=== PATIENT | male | born 1965 | race Caucasian/White ===

== ENCOUNTER 2018-07-20 10:59 | Day surgery (SDC) | payer OTHER, SELFPAY ==
[2018-07-20] VITALS (8 sets, daily range): BP systolic 103–135; BP diastolic 60–82; PULSE 45–63; RESP 12–16; TEMP 36.1–36.7; O2SAT 94–98; BMI 35.2
[2018-07-20] MEDS: SODIUM CHLORIDE 0.9% 1,000 ML 200 ML IV (11:25)
--- NOTE | 2018-07-20 11:46 | PM.HP.1 ---
History of Present Illness Date Patient Seen: 07/20/18 Time Patient Seen: 11:47 Chief complaint: [id number] Narrative: 53-year-old white male comes in for screening colonoscopy. He is asymptomatic denies melena hematochezia or abdominal pain. He has had a previous colonoscopy with no polyps found. Patient History Medical History Obstructive sleep apnea of adult (Chronic) Snoring (Resolved) Morbid obesity with BMI of 40.0-44.9, adult (Chronic) Asthma (Acute) Depression (Acute) Allergic rhinitis (Chronic) GERD (gastroesophageal reflux disease) (Chronic) Hyperlipidemia (Chronic) Hypogonadism in male (Chronic) Comment: Patient has no prior surgical history does have hyperlipidemia and is morbidly obese he takes aspirin and simvastatin. Family & Social History Social History: household members spouse lives independently Yes caregiver/support person No Tobacco & Substance use: Smoking Status Never smoker alcohol intake current Meds Home Medications Medication Instructions Recorded Confirmed Type fluticasone [Flonase Allergy 1 spray INTRANASAL QDAY #0 06/05/16 07/20/18 History Relief] omeprazole 20 mg PO QDAY #0 06/05/16 07/20/18 History simvastatin 20 mg PO HS #0 06/05/16 07/20/18 History testosterone [AndroGel] 2.5 gm TD #0 06/05/16 History [CO-Q-10] #0 09/03/16 History multivitamin [Multiple Vitamins] 1 tab PO QDAY #0 02/18/17 History aspirin [Aspir-81] 81 mg PO DAILY 07/20/18 07/20/18 History ranitidine HCl [Zantac 75] 75 mg PO DAILY 07/20/18 07/20/18 History Allergies Allergy/AdvReac Type Severity Reaction Status Date / Time Penicillins [PENICILLINS] Allergy Unknown Unverified 09/03/17 11:51 Review of Systems Review of Systems All systems reviewed & are unremarkable except as noted in HPI and below Exam Vital Signs (past 8 hours): - 07/20/18 11:19 Temperature 97.6 F Pulse Rate 61 Respiratory Rate 15 Blood Pressure 119/81 Pulse Oximetry 97 Oxygen Delivery Method Room Air Narrative Exam Narrative: Patient is alert and oriented lungs are clear with no rales or wheezes heart regular rhythm no murmur. Abdominal exam is benign no organomegaly no masses. Rectal we will do at time of colonoscopy. Assessment & Plan Assessment & Plan narrative: Patient is here for screening colonoscopy I have discussed the plan and procedure with the patient who understands and agrees and has no questions.
--- NOTE | 2018-07-20 11:51 | P.HP_ITS ---
History of Present Illness Date Patient Seen: 07/20/18 Time Patient Seen: 11:47 Chief complaint: [id number] Narrative: 53-year-old white male comes in for screening colonoscopy. He is asymptomatic denies melena hematochezia or abdominal pain. He has had a previous colonoscopy with no polyps found. Patient History Medical History Obstructive sleep apnea of adult (Chronic) Snoring (Resolved) Morbid obesity with BMI of 40.0-44.9, adult (Chronic) Asthma (Acute) Depression (Acute) Allergic rhinitis (Chronic) GERD (gastroesophageal reflux disease) (Chronic) Hyperlipidemia (Chronic) Hypogonadism in male (Chronic) Comment: Patient has no prior surgical history does have hyperlipidemia and is morbidly obese he takes aspirin and simvastatin. Family & Social History Social History: household members spouse lives independently Yes caregiver/support person No Tobacco & Substance use: Smoking Status Never smoker alcohol intake current Meds Home Medications Medication Instructions Recorded Confirmed Type fluticasone [Flonase Allergy 1 spray INTRANASAL QDAY #0 06/05/16 07/20/18 History Relief] omeprazole 20 mg PO QDAY #0 06/05/16 07/20/18 History simvastatin 20 mg PO HS #0 06/05/16 07/20/18 History testosterone [AndroGel] 2.5 gm TD #0 06/05/16 History [CO-Q-10] #0 09/03/16 History multivitamin [Multiple Vitamins] 1 tab PO QDAY #0 02/18/17 History aspirin [Aspir-81] 81 mg PO DAILY 07/20/18 07/20/18 History ranitidine HCl [Zantac 75] 75 mg PO DAILY 07/20/18 07/20/18 History Allergies Allergy/AdvReac Type Severity Reaction Status Date / Time Penicillins [PENICILLINS] Allergy Unknown Unverified 09/03/17 11:51 Review of Systems Review of Systems All systems reviewed & are unremarkable except as noted in HPI and below Exam Vital Signs (past 8 hours): - 07/20/18 11:19 Temperature 97.6 F Pulse Rate 61 Respiratory Rate 15 Blood Pressure 119/81 Pulse Oximetry 97 Oxygen Delivery Method Room Air Narrative Exam Narrative: Patient is alert and oriented lungs are clear with no rales or wheezes heart regular rhythm no murmur. Abdominal exam is benign no organomeg juan no masses. Rectal we will do at time of colonoscopy. Assessment & Plan Assessment & Plan narrative: Patient is here for screening colonoscopy I have discussed the plan and procedure with the patient who understands and agrees and has no questions.
[2018-07-20] MEDS: MIDAZOLAM 5 MG/5 ML VIAL IV (12:11)
[2018-07-20] MEDS: fentaNYL 250 MCG/5 ML INJ IV (12:12)
--- NOTE | 2018-07-20 12:24 | PM.OP.1 ---
Operative Date/Time/Diagnoses Date of procedure: 07/20/18 Time of procedure: 12:25 Pre-op diagnosis: Screening colonoscopy screening colonoscopy Procedure & Clinicians Procedure: Total colonoscopy to the cecum Same procedure as scheduled: Yes Anesthesia Type: Sedation Operative Notes Findings: Patient had a totally normal colonoscopy no polyps no ulcers no diverticulosis no signs of colitis this is a normal exam. Procedure in detail: Patient was properly identified during surgical pause given conscious sedation with Versed and fentanyl flexible fiberoptic colonoscope inserted transanally to the cecum patient had a normal exam no polyps no tumors no ulcerations no diverticulosis Complications: none Condition: stable Disposition: PACU
== END 2018-07-20 14:02 ==
LOC: ENDO 11:00
PROVIDERS: Family Provider Internal Medicine; PCP Student in an Organized Health Care Education/Training Program; Visit Provider Surgery
PROC: 0DJD8ZZ Inspection of Lower Intestinal Tract, Via Natural or Artificial Opening Endoscopic (ICD-10-PCS; CPT 45378; principal; 2018-07-20 12:00)
DX: Z12.11 Encounter for screening for malignant neoplasm of colon (principal); G47.33 Obstructive sleep apnea (adult) (pediatric); E66.01 Morbid (severe) obesity due to excess calories; Z68.41 Body mass index [BMI] 40.0-44.9, adult; J45.909 Unspecified asthma, uncomplicated; E78.5 Hyperlipidemia, unspecified
CPT/HCPCS: 45378; J2250; J3010

== ENCOUNTER → 2019-05-31 14:47 | Outpatient (ROUT) | payer OTHER, SELFPAY ==
[2019-05-31 15:01] LABS: Add Manual Diff / Slide Review NO; Basophils Absolute Auto 0 /uL (0-100); Basophils Percent Auto 0.7 % (0-2); Eosinophils Absolute Auto 200 /uL (0-450); Eosinophils Percent Auto 4.3 % (2-4); Hematocrit 48.3 % (41-53); Hemoglobin 16.8 g/dL (13.5-17.5); Lymphocytes Absolute Auto 1300 /uL (1100-4500); Lymphocytes Percent Auto 25.3 % (25-40); Mean Corpuscular HGB Conc 34.8 % (30-36); Mean Corpuscular Hemoglobin 32.1 PG (26-34); Mean Corpuscular Volume 92.3 fL (80-100); Monocytes Absolute Auto 400 /uL (0-900); Monocytes Percent Auto 8.1 % (3-14); Neutrophils Absolute Auto 3200 /uL (1500-7000); Neutrophils Percent Auto 61.6 % (50-75); Platelet Count 196 X10^3/uL (150-400); Red Blood Cell Count 5.24 X10^6/uL (4.5-5.9); Red Cell Distribution Width 13.5 % (11.6-14.8); White Blood Cell Count 5.2 X10^3/uL (4.5-11.0)
[2019-05-31 15:23] LABS: Alanine Aminotransferase 50 IU/L (<50); Albumin 4.5 g/dL (3.5-5.0); Albumin Globulin Ratio 1.9 (1.0-2.8); Alkaline Phosphatase 37 U/L (38-126); Aspartate Aminotransferase 36 IU/L (17-59); BUN Creatinine Ratio 12.5 (6-22); Bilirubin Total 0.9 mg/dL (0.2-1.3); Blood Urea Nitrogen 15 mg/dL (9-20); Calcium 9.6 mg/dL (8.4-10.2); Carbon Dioxide 30 mmol/L (22-32); Chloride 103 mmol/L (98-107); Cholesterol 161 mg/dL (140-199); Estimated Glomerular Filt Rate > 60.0 mL/min (>60); Globulin 2.4 g/dL (1.7-4.1); Glucose 124 mg/dL (70-100); HDL Cholesterol 42 mg/dL (40-60); HEMOLYSIS 19 (0-50); LDL Cholesterol Calculated 101 mg/dL (<100); Potassium 4.6 mmol/L (3.4-5.1); Sodium 142 mmol/L (137-145); Total Protein 6.9 g/dL (6.3-8.2); Triglycerides 88 mg/dL (35-150)
[2019-06-07 19:18] LABS: Testosterone Free 40.8 pg/mL (35.0-155.0); Testosterone Total 359 ng/dL (250-1100)
== END ==
PROVIDERS: Family Provider Internal Medicine; PCP Student in an Organized Health Care Education/Training Program; Visit Provider Student in an Organized Health Care Education/Training Program
DX: E78.00 Pure hypercholesterolemia, unspecified (principal); E29.1 Testicular hypofunction
CPT/HCPCS: 80053; 80061; 84402; 84403; 85025

== ENCOUNTER → 2019-10-20 09:43 | Outpatient (CLI) | payer OTHER, SELFPAY ==
[2019-10-20 12:28] LABS: HIV 1 & 2 Ab/Ag 4th Gen Combo NEGATIVE (NEGATIVE)
[2019-10-20 13:35] LABS: Urine N gonorrhoeae NOT DETECTED
[2019-10-20 13:36] LABS: Urine Chlamydia NOT DETECTED
[2019-10-21 03:26] LABS: RPR Screen Non Reactive (Non Reactive)
== END ==
PROVIDERS: Family Provider Internal Medicine; PCP Student in an Organized Health Care Education/Training Program; Referring Provider Student in an Organized Health Care Education/Training Program; Visit Provider Student in an Organized Health Care Education/Training Program
DX: Z11.3 Encounter for screening for infections with a predominantly sexual mode of transmission (principal)
CPT/HCPCS: 36415; 86592; 87389; 87491; 87591

== ENCOUNTER 2019-11-10 19:53 | Emergency (ER) | payer OTHER, SELFPAY ==
[2019-11-10 19:57] VITALS: BP 158/91; PULSE 59; RESP 19; TEMP 36.9; O2SAT 100; BMI 39.6
--- NOTE | 2019-11-10 21:06 | ED_ITS ---
HPI - Dental/Oral <GERALDO Zacarias - Last Filed: 11/10/19 21:08> General Chief complaint: Dental/Oral Stated complaint: tooth pain Time Seen by Provider: 11/10/19 20:13 Source: patient Mode of arrival: Ambulatory Limitations: no limitations History of Present Illness HPI Narrative: The patient is a 54-year-old male nonsmoker with history of obstructive sleep apnea who presents with a chief complaint of dental pain ongoing for the past few days. He recently had dental work done but now complains of pain and swelling at his 2nd molar of his right lower jaw. Denies any fevers but complains of warm feeling. Denies any nausea vomiting or diarrhea. He has tried Aleve, ibuprofen, Tylenol. He has an appointment with a dentist tomorrow. Related Data Home Medications Medication Instructions Recorded Confirmed simvastatin 20 mg PO HS #0 06/05/16 04/01/19 testosterone [AndroGel] 2.5 gm TD #0 06/05/16 04/01/19 [CO-Q-10] #0 09/03/16 04/01/19 multivitamin [Multiple Vitamins] 1 tab PO QDAY #0 02/18/17 04/01/19 aspirin [Aspir-81] 81 mg PO DAILY 07/20/18 04/01/19 Respironics Dreamstation CPAP #1 ea 09/30/18 04/01/19 ranitidine HCl 75 mg tablet 150 mg PO DAILY tab 09/30/18 04/01/19 Previous Rx's Medication Instructions Recorded clindamycin HCl 300 mg PO TID 7 Days #21 cap 11/10/19 hydrocodone-acetaminophen 1 tab PO Q4-6H PRN #4 tab 11/10/19 ondansetron 4 mg PO Q6H PRN #14 tab 11/10/19 Allergies Allergy/AdvReac Type Severity Reaction Status Date / Time Penicillins [PENICILLINS] Allergy Unknown Unverified 04/01/19 10:40 Review of Systems <GERALDO Zacarias - Last Filed: 11/10/19 21:08> Review of Systems Narrative: GENERAL: Denies chills, fatigue, malaise, fever, sweats. HEENT: See HPI RESPIRATORY: Denies dyspnea, cough, wheezing, hemoptysis, sputum. CARDIOVASCULAR: Denies chest pain, palpitations, orthopnea, edema, GASTROINTESTINAL: Denies nausea, vomiting, abdominal pain, diarrhea, cons tipation, melena. : Denies dysuria, frequency, incontinence, hematuria, urinary retention. MUSCULOSKELETAL: denies weakness, joint pain, or bony pain SKIN: Denies rash, skin lesions, or other NEUROLOGIC: Denies weakness, headache, numbness, change in speech, confusion, seizures, incoordination. PSYCHIATRIC: No concerning psychosocial issues. 12 point review of systems is negative except for those stated above Patient History <GERALDO Zacarias - Last Filed: 11/10/19 21:08> Medical History Allergic rhinitis (Chronic) Asthma (Acute) Depression (Acute) GERD (gastroesophageal reflux disease) (Chronic) Hyperlipidemia (Chronic) Hypogonadism in male (Chronic) Morbid obesity with BMI of 40.0-44.9, adult (Chronic) Obstructive sleep apnea of adult (Chronic) Snoring (Inactive) Social History marital status: unmarried,living together details: with An Pena, lives in [place] household members: significant other lives independently: Yes caregiver/support person: No housing: house occupational status: employed current occupational exposures/hazards: Yes (employed at [employer]) Smoking Status: Never smoker alcohol intake: current substance use type: does not use Smoking Status: Never smoker Substance Use Type: does not use Exam <GERALDO Zacarias - Last Filed: 11/10/19 21:08> Narrative Exam Narrative: GENERAL: This is a well-nourished, well-developed patient, no acute distress HEAD: Atraumatic. Normocephalic. No temporal or scalp tenderness. EYES: Pupils equal round and reactive. Extraocular motions intact. No scleral icterus. No injection or drainage. ENT: Nose without bleeding, purulent drainage or septal hematoma. Throat without erythema, tonsillar hypertrophy or exudate. Uvula midline. Airway patent. Pain and erythema noted right lower jaw 2nd molar. No obvious abscess. NECK: Trachea midline. No JVD or lymphadenopathy. Supple, nontender, no meningeal signs. CARDIOVASCULAR: Regular rate and rhythm without murmurs, gallops, or rubs. RESPIRATORY: Clear to auscultation. Breath sounds equal bilaterally. No wheezes, rales, or rhonchi. No cough. No increased respiratory effort. No accessory muscle use. EXTREMITIES: No clubbing, cyanosis, or edema. No joint tenderness, effusion, or edema noted. BACK: Nontender without deformity or crepitance. No flank tenderness. NEURO: AOx3. SKIN: No rash or erythema visible skin Initial Vital Signs Initial Vital Signs: Vital Signs Temperature 98.4 F 11/10/19 19:57 Pulse Rate 59 L 11/10/19 19:57 Respiratory Rate 19 11/10/19 19:57 Blood Pressure 158/91 H 11/10/19 19:57 Pulse Oximetry 100 11/10/19 19:57 <Dann Arreola DO - Last Filed: 11/11/19 00:06> Initial Vital Signs Initial Vital Signs: Vital Signs Temperature 98.4 F 11/10/19 19:57 Pulse Rate 59 L 11/10/19 19:57 Respiratory Rate 19 11/10/19 19:57 Blood Pressure 158/91 H 11/10/19 19:57 Pulse Oximetry 100 11/10/19 19:57 Course <GERALDO Zacarias - Last Filed: 11/10/19 21:08> Vital Signs Vital signs: Vital Signs - 8 hr 11/10/19 19:57 Temperature 98.4 F Pulse Rate 59 L Respiratory Rate 19 Blood Pressure 158/91 H Pulse Oximetry 100 <Dann Arreola DO - Last Filed: 11/11/19 00:06> Vital Signs Vital signs: Vital Signs - 8 hr 11/10/19 19:57 Temperature 98.4 F Pulse Rate 59 L Respiratory Rate 19 Blood Pressure 158/91 H Pulse Oximetry 100 MDM - Dental/Oral <GERALDO Zacarias - Last Filed: 11/10/19 21:08> [facility] Narrative Medical decision making narrative: Patient presents with a chief complaint of dental pain, exam is concerning for infection. Patient has a severe allergy to penicillin, will start on clindamycin. Mccurtain and Zofran given for pain. Patient has follow-up scheduled with dentist tomorrow. Discussed at length come back to the emergency department for any acute concerns patient has no questions or concerns upon discharge and states understanding return precautions as well as follow-up care. Discharge Plan Departure Patient Disposition: Home Clinical Impression: Dental infection Discharge Date/Time: 11/10/19 20:40 Instructions: Tooth Abscess, DI for Dental Pain Activity Restrictions/Additional Instructions: Thank you for trusting us with your care today Your exam is concerning for dental infection. [facility] I also sent in some pain and nausea medication. Please follow-up with primary care provider as well as your dentist as scheduled. I have given you a prescription of a narcotic for pain. Be aware that this can be constipating and sedating. I encouraged taking with a stool softener, pushing fluids and fiber. Do not take and drive, operate heavy machinery, etc. Do not combine it with any other sedating substances such as alcohol. The combination of narcotics and alcohol and/or other sedatives can be lethal. Please come back to the emergency department for any acute concerns Prescriptions: New clindamycin HCl 300 mg capsule 300 mg PO TID 7 Days Qty: 21 RF: 0 hydrocodone-acetaminophen 5-325 mg tablet 1 tab PO Q4-6H PRN (Reason: pain) Qty: 4 RF: 0 ondansetron 4 mg tablet,disintegrating 4 mg PO Q6H PRN (Reason: nausea and vomiting) Qty: 14 RF: 0 No Action simvastatin 20 MG tablet 20 mg PO HS Qty: 0 RF: 0 testosterone [AndroGel] 2.5 GM gel in packet 2.5 gm TD Qty: 0 RF: 0 [CO-Q-10] Qty: 0 RF: 0 multivitamin [Multiple Vitamins] 1 EACH tablet 1 tab PO QDAY Qty: 0 RF: 0 aspirin [Aspir-81] 81 mg Tablet,Delayed Release (Dr/Ec) 81 mg PO DAILY RF: 0 ranitidine HCl [Zantac 75] 75 mg tablet 150 mg PO DAILY RF: 0 (DME) Respironics Dreamstation CPAP Qty: 1 RF: 0 Referrals: Ly Falcon PA-C [Primary Care Provider] - <Dann Arreola DO - Last Filed: 11/11/19 00:06> Cosign ED Attending Praveenaature Attestation: I was immediately available in the department for consultation. This documentation has been reviewed and I agree with assessment and plan. Supervised by Dann Arreola,
== END 2019-11-10 20:40 | disposition home or self-care (01) ==
PROVIDERS: Emergency Provider Nurse Practitioner Family; Family Provider Internal Medicine; PCP Student in an Organized Health Care Education/Training Program
DX: K04.7 Periapical abscess without sinus (principal)
CPT/HCPCS: 99281

== ENCOUNTER → 2020-03-02 11:12 | Outpatient (CLI) | payer OTHER, SELFPAY ==
--- NOTE | 2020-03-02 | DI.RAD.S_ITS ---
PROCEDURE: XR CERVICAL SPINE 4V OR 5V INDICATIONS: CERVICALGIA TECHNIQUE: 5 views of the cervical spine acquired. COMPARISON: None. FINDINGS: Bones: No fractures or dislocations to the C7 level. Mild degenerative changes are present within the mid and lower cervical spine including osteophytosis and intervertebral disc space narrowing. Moderate foraminal narrowing is present on the right at C5-6 and moderate to severe foraminal narrowing is present on the left at C5-6 and C6-7. Soft tissues: No prevertebral soft tissue swelling. IMPRESSION: 1. Moderate neural foraminal stenosis and degenerative changes of the mid and lower cervical spine. Dictated by: Meaghan Sanchez M.D. on 03/02/2020 at 12:55 Approved by: Meaghan Sanchez M.D. on 03/02/2020 at 12:58
== END ==
PROVIDERS: Family Provider Internal Medicine; PCP Student in an Organized Health Care Education/Training Program; Referring Provider Student in an Organized Health Care Education/Training Program; Visit Provider Student in an Organized Health Care Education/Training Program
DX: M54.2 Cervicalgia (principal); M48.02 Spinal stenosis, cervical region; M47.812 Spondylosis without myelopathy or radiculopathy, cervical region
CPT/HCPCS: 72050

== ENCOUNTER → 2020-04-10 19:47 | Outpatient (ROUT) | payer OTHER, SELFPAY ==
[2020-04-10 19:50] LABS: Bacteria Urine None Seen
[2020-04-10 20:00] LABS: Appearance Urine UA CLOUDY; Bilirubin Urine UA NEGATIVE (NEGATIVE); Color Urine UA YELLOW; Glucose Urine UA 1+ g/dL (Negative); Ketones Urine UA NEGATIVE (NEGATIVE); Leukocyte Esterase Urine UA NEGATIVE (NEGATIVE); Nitrite Urine UA NEGATIVE (Negative); Occult Blood Urine UA 1+ (Negative); Protein Urine UA NEGATIVE (Negative); Specific Gravity Urine UA 1.025 (1.000-1.035); Urobilinogen Urine UA 0.2 E.U./dL (0.2); pH Urine UA 5.5 (4.5-8.0)
[2020-04-10 20:08] LABS: Amorphous Sediment Urine 4+; Culture Indicated Urine Cult Not Indicated; RBC Urine 0-1/HPF (0-5/HPF); Squamous Epithelial Cell Urine 0-1 /HPF (0-5/HPF); WBC Urine 0-1/HPF (0-5/HPF)
[2020-04-10 21:28] LABS: Urine Chlamydia NOT DETECTED; Urine N gonorrhoeae NOT DETECTED
[2020-04-12 05:12] LABS: RPR Screen Non Reactive (Non Reactive)
[2020-04-13 14:51] LABS: HIV 1 & 2 Ab/Ag 4th Gen Combo NEGATIVE (NEGATIVE)
== END ==
PROVIDERS: Family Provider Internal Medicine; PCP Student in an Organized Health Care Education/Training Program; Visit Provider Student in an Organized Health Care Education/Training Program
DX: R39.9 Unspecified symptoms and signs involving the genitourinary system (principal)
CPT/HCPCS: 81001; 86592; 87389; 87491; 87591

== ENCOUNTER → 2020-04-17 10:56 | Outpatient (CLI) | payer OTHER, SELFPAY ==
[2020-04-17 11:08] LABS: WBC Urine None Seen (0-5/HPF)
[2020-04-17 12:07] LABS: Appearance Urine UA CLEAR; Bilirubin Urine UA NEGATIVE (NEGATIVE); Color Urine UA YELLOW; Glucose Urine UA NEGATIVE (Negative); Ketones Urine UA NEGATIVE (NEGATIVE); Leukocyte Esterase Urine UA NEGATIVE (NEGATIVE); Nitrite Urine UA NEGATIVE (Negative); Occult Blood Urine UA 1+ (Negative); Protein Urine UA NEGATIVE (Negative); Specific Gravity Urine UA >=1.030 (1.000-1.035); Urobilinogen Urine UA 0.2 E.U./dL (0.2); pH Urine UA 5.5 (4.5-8.0)
[2020-04-17 13:13] LABS: Bacteria Urine Few (2-10); RBC Urine 1-5/HPF (0-5/HPF)
== END ==
PROVIDERS: Family Provider Internal Medicine; PCP Student in an Organized Health Care Education/Training Program; Referring Provider Student in an Organized Health Care Education/Training Program; Visit Provider Student in an Organized Health Care Education/Training Program
DX: R39.9 Unspecified symptoms and signs involving the genitourinary system (principal)
CPT/HCPCS: 81001; 87086

== ENCOUNTER → 2020-04-26 13:12 | Outpatient (CLI) | payer OTHER, SELFPAY ==
[2020-04-26 15:17] LABS: Prostate Specific Antigen Scrn 0.764 ng/mL (0.1-4.0)
== END ==
PROVIDERS: Family Provider Internal Medicine; PCP Student in an Organized Health Care Education/Training Program; Referring Provider Student in an Organized Health Care Education/Training Program; Visit Provider Student in an Organized Health Care Education/Training Program
DX: R39.9 Unspecified symptoms and signs involving the genitourinary system (principal); Z12.5 Encounter for screening for malignant neoplasm of prostate
CPT/HCPCS: 36415; G0103

== ENCOUNTER → 2020-05-02 11:48 | Outpatient (CLI) | payer OTHER, SELFPAY ==
[2020-05-02 12:59] LABS: COVID19 -Nasal RAPID POSITIVE (Negative)
== END ==
PROVIDERS: Family Provider Internal Medicine; PCP Student in an Organized Health Care Education/Training Program; Visit Provider Physician Assistant
DX: U07.1 COVID-19 (principal)
CPT/HCPCS: 87635

== ENCOUNTER → 2020-05-14 13:59 | Outpatient (CLI) | payer OTHER, SELFPAY ==
--- NOTE | 2020-05-14 14:00 | DI.RAD.S_ITS ---
PROCEDURE: XR CHEST 2V INDICATIONS: worsening cough TECHNIQUE: 2 views of the chest were acquired. COMPARISON: None. FINDINGS: Surgical changes and devices: None. Lungs and pleura: Bilateral patchy airspace opacities. No pleural effusions or pneumothorax. Mediastinum: Mediastinal contours are normal. Heart size is normal. Bones and chest wall: No suspicious bony abnormalities. Soft tissues appear unremarkable. IMPRESSION: Bilateral patchy airspace opacities. Findings concerning for multifocal pneumonia or atypical pneumonia including COVID-19. Dictated by: Mark Blackmon M.D. on 05/14/2020 at 13:13 Approved by: Mark Blackmon M.D. on 05/14/2020 at 13:14
== END ==
PROVIDERS: Family Provider Internal Medicine; PCP Student in an Organized Health Care Education/Training Program; Referring Provider Physician Assistant; Visit Provider Physician Assistant
DX: R05 Cough (principal)
CPT/HCPCS: 71046

== ENCOUNTER → 2020-05-24 14:44 | Outpatient (CLI) | payer OTHER, SELFPAY ==
--- NOTE | 2020-05-24 | DI.RAD.S_ITS ---
PROCEDURE: XR CHEST 2V INDICATIONS: PNEUMONIA OF BOTH LUNGS DUE TO INFECTIOUS ORGANISM TECHNIQUE: 2 views of the chest were acquired. COMPARISON: [facility], CR, XR CHEST 2V, 05/14/2020, 14:01. FINDINGS: Surgical changes and devices: None. Lungs and pleura: Lungs are clear. No pleural effusions or pneumothorax. Mediastinum: Mediastinal contours are normal. Heart size is normal. Bones and chest wall: No suspicious bony abnormalities. Soft tissues appear unremarkable. IMPRESSION: No acute disease. Dictated by: Angus Oliveros M.D. on 05/24/2020 at 16:13 Approved by: Angus Oliveros M.D. on 05/24/2020 at 16:51
--- NOTE | 2020-05-24 | DI.RAD.S_ITS ---
PROCEDURE: XR SHOULDER RT MIN 2V INDICATIONS: PAIN IN RIGHT SHOULDER TECHNIQUE: 3 views of the shoulder were acquired. COMPARISON: None. FINDINGS: Bones: No fractures or dislocations. No suspicious bony lesions. Visualized ribs appear intact. Scattered degenerative subchondral sclerosis and spurring. Soft tissues: No suspicious soft tissue calcifications. IMPRESSION: Mild degenerative changes. If the patient's pain or other symptoms persist, consider further evaluation with MRI Dictated by: Angus Oliveros M.D. on 05/24/2020 at 16:51 Approved by: Angus Oliveros M.D. on 05/24/2020 at 16:59
== END ==
PROVIDERS: Family Provider Internal Medicine; PCP Student in an Organized Health Care Education/Training Program; Referring Provider Student in an Organized Health Care Education/Training Program; Visit Provider Student in an Organized Health Care Education/Training Program
DX: M25.511 Pain in right shoulder (principal); J18.9 Pneumonia, unspecified organism; M19.011 Primary osteoarthritis, right shoulder
CPT/HCPCS: 71046; 73030

== ENCOUNTER → 2020-09-01 09:20 | Outpatient (CLI) | payer OTHER, SELFPAY ==
[2020-09-01] MEDS: COVID-19 VACC, Ad26(JANSSEN)/PF 0.5 ML IM (09:25)
== END ==
PROVIDERS: Family Provider Internal Medicine; PCP Student in an Organized Health Care Education/Training Program; Visit Provider Internal Medicine
DX: Z23 Encounter for immunization (principal)
CPT/HCPCS: 0031A; 91303

== ENCOUNTER → 2021-02-26 08:38 | Outpatient (CLI) | payer OTHER, SELFPAY ==
[2021-02-26 10:12] LABS: Hematocrit 49.3 % (41-53); Hemoglobin 16.4 g/dL (13.5-17.5); Mean Corpuscular HGB Conc 33.3 % (30-36); Mean Corpuscular Hemoglobin 31.7 PG (26-34); Mean Corpuscular Volume 95.3 fL (80-100); Platelet Count 184 X10^3/uL (150-400); Red Blood Cell Count 5.18 X10^6/uL (4.5-5.9); Red Cell Distribution Width 13.2 % (11.6-14.8); White Blood Cell Count 3.9 X10^3/uL (4.5-11.0)
[2021-02-26 10:29] LABS: Alanine Aminotransferase 42 IU/L (<50); Albumin 4.4 g/dL (3.5-5.0); Albumin Globulin Ratio 1.8 (1.0-2.8); Alkaline Phosphatase 35 U/L (38-126); Aspartate Aminotransferase 33 IU/L (17-59); BUN Creatinine Ratio 16.8 (6-22); Bilirubin Total 1.1 mg/dL (0.2-1.3); Blood Urea Nitrogen 17 mg/dL (9-20); Calcium 9.4 mg/dL (8.4-10.2); Carbon Dioxide 30 mmol/L (22-32); Chloride 104 mmol/L (98-107); Cholesterol 170 mg/dL (140-199); Estimated Glomerular Filt Rate > 60.0 mL/min (>60); Globulin 2.4 g/dL (1.7-4.1); Glucose 116 mg/dL (70-100); HDL Cholesterol 49 mg/dL (40-60); HEMOLYSIS < 15 (0-50); LDL Cholesterol Calculated 98 mg/dL (<100); Potassium 4.8 mmol/L (3.4-5.1); Sodium 140 mmol/L (137-145); Total Protein 6.8 g/dL (6.3-8.2); Triglycerides 115 mg/dL (35-150)
[2021-02-26 10:57] LABS: Testosterone 219 ng/dL (71.8-623)
[2021-02-26 11:15] LABS: HIV 1 & 2 Ab/Ag 4th Gen Combo NEGATIVE (NEGATIVE); Hep C Virus Ab w/Reflex Quant NEGATIVE s/c (NEGATIVE)
== END ==
PROVIDERS: Family Provider Internal Medicine; PCP Student in an Organized Health Care Education/Training Program; Referring Provider Student in an Organized Health Care Education/Training Program; Visit Provider Student in an Organized Health Care Education/Training Program
DX: Z00.00 Encounter for general adult medical examination without abnormal findings (principal); E29.1 Testicular hypofunction; E78.00 Pure hypercholesterolemia, unspecified; Z11.59 Encounter for screening for other viral diseases
CPT/HCPCS: 36415; 80053; 80061; 84403; 85027; 86803; 87389

== ENCOUNTER 2022-06-03 21:42 | Observation (INO) | payer OTHER, BC, SELFPAY ==
[2022-06-03 21:50] VITALS: BP 158/85; PULSE 65; RESP 18; TEMP 36.1; O2SAT 97
--- NOTE | 2022-06-03 22:09 | DI.RAD.S_ITS ---
PROCEDURE: XR CHEST 1V INDICATIONS: chest pain TECHNIQUE: One view of the chest was acquired. COMPARISON: [facility], CR, XR CHEST 2V, 05/24/2020, 14:47. FINDINGS: Surgical changes and devices: None. Lungs and pleura: Lungs are clear. No pleural effusions or pneumothorax. Mediastinum: Mediastinal contours appear normal. Heart size is normal. Bones and chest wall: No suspicious bony lesions. Overlying soft tissues appear unremarkable. IMPRESSION: 1. No acute cardiopulmonary disease. Dictated by: Nigel Lou M.D. on 06/03/2022 at 23:25 Approved by: Nigel Lou M.D. on 06/03/2022 at 23:25
[2022-06-03 22:18] LABS: Add Manual Diff / Slide Review NO; Basophils Absolute Auto 100 /uL (0-100); Basophils Percent Auto 0.6 % (0-2); Eosinophils Absolute Auto 100 /uL (0-450); Eosinophils Percent Auto 0.9 % (2-4); Hematocrit 46.7 % (41-53); Hemoglobin 16.4 g/dL (13.5-17.5); Lymphocytes Absolute Auto 1000 /uL (1100-4500); Lymphocytes Percent Auto 12.9 % (25-40); Mean Corpuscular HGB Conc 35.2 % (30-36); Mean Corpuscular Hemoglobin 32.5 PG (26-34); Mean Corpuscular Volume 92.4 fL (80-100); Monocytes Absolute Auto 500 /uL (0-900); Monocytes Percent Auto 6.2 % (3-14); Neutrophils Absolute Auto 6400 /uL (1500-7000); Neutrophils Percent Auto 79.4 % (50-75); Platelet Count 182 X10^3/uL (150-400); Red Blood Cell Count 5.05 X10^6/uL (4.5-5.9); Red Cell Distribution Width 13.6 % (11.6-14.8); White Blood Cell Count 8.1 X10^3/uL (4.5-11.0)
[2022-06-03 22:46] LABS: Alanine Aminotransferase 45 IU/L (<50); Albumin 4.8 g/dL (3.5-5.0); Albumin Globulin Ratio 1.5 (1.0-2.8); Alkaline Phosphatase 42 U/L (38-126); Aspartate Aminotransferase 34 IU/L (17-59); BUN Creatinine Ratio 15.2 (6-22); Blood Urea Nitrogen 16 mg/dL (9-20); Calcium 9.1 mg/dL (8.4-10.2); Carbon Dioxide 25 mmol/L (22-32); Chloride 101 mmol/L (98-107); Creatine Kinase 122 U/L (55-170); Estimated Glomerular Filt Rate > 60 mL/min (>60); Globulin 3.1 g/dL (1.7-4.1); Glucose 167 mg/dL (70-100); Potassium 4.1 mmol/L (3.4-5.1); Sodium 139 mmol/L (137-145); Total Protein 7.9 g/dL (6.3-8.2)
[2022-06-03 22:58] LABS: INR 1.1 (0.9-1.3); Prothrombin Time 12.4 SECONDS (10.1-12.7); Troponin I < 0.012 ng/mL (0.01-0.034)
[2022-06-03 23:01] LABS: CKMB % Relative Index 0.4 % (1.5-5.0); Creatine Kinase MB 0.44 ng/mL (<2.37); HEMOLYSIS 20 (0-50); PTT Partial Thromboplastin Tim 26 SECONDS (26-36)
[2022-06-04] VITALS (29 sets, daily range): BP systolic 95–152; BP diastolic 56–84; PULSE 49–78; RESP 10–22; TEMP 36.3–36.9; O2SAT 92–97; BMI 41.9
--- NOTE | 2022-06-04 00:31 | ED_ITS ---
HPI - Chest Pain <Dann Arreola DO - Last Filed: 06/05/22 00:13> General Chief Complaint: Chest Pain Stated Complaint: vomiting, off balance, chest pain Time Seen by Provider: 06/03/22 21:47 Source: patient Mode of arrival: Ambulatory Limitations: no limitations History of Present Illness HPI narrative: 57-year-old male nonsmoker with history of sleep apnea presents with a chief complaint of gradually worsening symptoms over the course of the day including dizziness and vomiting that seemed to come on with 1 another earlier today. His dizziness is made worse by any movement of his head and seems to improve when sitting still and closing his eyes. He is had episodes of vomiting that come with the significant dizziness. He denies any recent trauma or head injury. He denies any fever or chills. He has no neck pain. He denies the use of blood thinners. He has had some burning, at times sharp chest pain that seems to be associated with a dry cough. He is not short of breath, he denies any hemoptysis. He denies any exertional symptoms and was feeling fine and at baseline until this morning. Related Data Home Medications Medication Instructions Recorded Confirmed testosterone 1.62 % (40.5 mg/2.5 2.5 gm TD QAM ##0 06/05/16 06/04/22 gram) transdermal gel packet (AndroGel) multivitamin (Multiple Vitamins 1 tab PO QDAY ##0 02/18/17 06/04/22 tablet) aspirin 81 mg tablet,delayed 81 mg PO DAILY 07/20/18 06/04/22 release (Aspir-) Respironics Dreamstation CPAP #1 ea 09/30/18 06/04/22 omeprazole 10 mg capsule,delayed 10 mg PO DAILY 06/04/22 06/04/22 release simvastatin 40 mg tablet 40 mg PO QPM 06/04/22 06/04/22 Previous Rx's Medication Instructions Recorded meclizine 25 mg tablet 25 mg PO Q6HR PRN dizziness #30 06/06/22 tabs metoclopramide HCl 10 mg tablet 10 mg PO Q6H PRN nausea and 06/06/22 (Reglan) vomiting #30 tabs Allergies Allergy/AdvReac Type Severity Reaction Status Date / Time Penicillins [PENICILLINS] Allergy Intermediate Hives Verified 06/04/22 12:17 Review of Systems <Dann Arreola DO - Last Filed: 06/05/22 00:13> Review of Systems Narrative: GENERAL: See HPI. HEENT: See HPI RESPIRATORY: Denies dyspnea, cough, wheezing, hemoptysis, sputum. CARDIOVASCULAR: See HPI GASTROINTESTINAL: See HPI : Denies dysuria, frequency, incontinence, hematuria, urinary retention. MUSCULOSKELETAL: denies weakness, joint pain, or bony pain SKIN: Denies rash, skin lesions, or other NEUROLOGIC: Denies weakness, headache, numbness, change in speech, confusion, se izures, incoordination. PSYCHIATRIC: No concerning psychosocial issues. 12 point review of systems is negative except for those stated above Patient History <Dann Arreola DO - Last Filed: 06/05/22 00:13> Medical History Allergic rhinitis Asthma Bilateral pneumonia COVID-19 virus detected Depression Exposure to COVID-19 virus GERD (gastroesophageal reflux disease) Hyperlipidemia Hypogonadism in male Morbid obesity with BMI of 40.0-44.9, adult Obstructive sleep apnea of adult Snoring Viral syndrome Social History marital status: unmarried,living together details: with An Pena, lives in [place] household members: significant other lives independently: Yes caregiver/support person: No housing: house occupational status: employed current occupational exposures/hazards: Yes (employed at [employer]) Smoking Status: Never smoker alcohol intake: current substance use type: does not use Smoking Status: Never smoker Substance Use Type: does not use Exam <Dann Arreola DO - Last Filed: 06/05/22 00:13> Narrative Exam Narrative: GENERAL: [57] year old patient appears stated age. Well-developed patient, in obvious distress, towel over his eyes, holding an emesis bag. HEAD: Atraumatic. Normocephalic. EYES: Pupils equal round and reactive. Extraocular motions intact. No scleral icterus. No injection or drainage. ENT: Nose without bleeding, purulent drainage. Throat without erythema, tonsillar hypertrophy or exudate. Airway patent. Motion of head results and obvious nystagmus and profound nausea followed by vomiting NECK: Trachea midline. Non tender CARDIOVASCULAR: Regular rate and rhythm without murmurs, gallops, or rubs. RESPIRATORY: Clear to auscultation. Breath sounds equal bilaterally. No wheezes, rales, or rhonchi. GASTROINTESTINAL: Abdomen soft, non-tender, nondistended. EXTREMITIES: No edema or joint tenderness. BACK: Nontender without deformity or crepitance. No flank tenderness. NEURO: AOx3. SKIN: No rash or erythema of visible areas Initial Vital Signs Initial Vital Signs: Vital Signs Temperature 97 F L 06/03/22 21:50 Pulse Rate 65 06/03/22 21:50 Respiratory Rate 18 06/03/22 21:50 Blood Pressure 158/85 H 06/03/22 21:50 Pulse Oximetry 97 06/03/22 21:50 Oxygen Delivery Method 06/03/22 21:50 <Fabio Pringle MD - Last Filed: 06/12/22 21:59> Initial Vital Signs Initial Vital Signs: Vital Signs Temperature 97 F L 06/03/22 21:50 Pulse Rate 65 06/03/22 21:50 Respiratory Rate 18 06/03/22 21:50 Blood Pressure 158/85 H 06/03/22 21:50 Pulse Oximetry 97 06/03/22 21:50 Oxygen Delivery Method 06/03/22 21:50 Course <Dann Arreola DO - Last Filed: 06/05/22 00:13> Orders Ordered: Discontinued Medications Acetaminophen (Acetaminophen 325 Mg Tablet) 650 mg PO Q6H PRN PRN Reason: Fever/Mild Pain (1-3) Last Admin: 06/05/22 17:40 Dose: 650 mg Documented By: JENNIFER Aspirin (Aspirin 81 Mg Chew Tab) 324 mg PO NOW ONE Stop: 06/03/22 22:10 Last Admin: 06/04/22 00:34 Dose: 324 mg Documented By: AP Aspirin (Aspirin Ec 81 Mg Tablet) 81 mg PO DAILY [facility] Last Admin: 06/06/22 08:13 Dose: 81 mg Documented By: Admin: 06/05/22 09:52 Dose: 81 mg Documented By: CLL Atorvastatin Calcium (Atorvastatin 20 Mg Tablet) 20 mg PO BEDTIME [facility] Last Admin: 06/05/22 20:10 Dose: 20 mg Documented By: Admin: 06/04/22 21:24 Dose: 20 mg Documented By: AKP Diazepam (Diazepam 10 Mg/2 Ml Syringe) 2 mg IV NOW ONE Stop: 06/04/22 00:38 Last Admin: 06/04/22 00:41 Dose: 2 mg Documented By: ANAYA Enoxaparin Sodium (Enoxaparin 40 Mg/0.4 Ml Syringe) 40 mg SUBCUT DAILY [facility] Last Admin: 06/06/22 08:13 Dose: 40 mg Documented By: Admin: 06/05/22 09:52 Dose: 40 mg Documented By: JENNIFER Sodium Chloride (Normal Saline 0.9%) 1,000 mls @ 1,000 mls/hr IV BOLUS ONE Stop: 06/04/22 02:51 Last Infusion: 06/04/22 03:54 Dose: 0 mls/hr Documented By: Admin: 06/04/22 02:00 Dose: 1,000 mls/hr Documented By: JENNIFER Sodium Chloride (Normal Saline 0.9%) 1,000 mls @ 1,000 mls/hr IV BOLUS ONE Stop: 06/04/22 06:48 Last Infusion: 06/04/22 09:03 Dose: 0 mls/hr Documented By: Admin: 06/04/22 06:55 Dose: 1,000 mls/hr Documented By: ANAYA Lorazepam (Lorazepam 1 Mg Tablet) 2 mg PO Q6HR PRN PRN Reason: vertigo, N/V Magnesium Hydroxide (Magnesium Hydroxide 30 Ml Udc) 30 ml PO DAILY PRN PRN Reason: Constipation Meclizine HCl (Meclizine Hcl 12.5 Mg Tablet) 50 mg PO NOW ONE Stop: 06/04/22 01:53 Last Admin: 06/04/22 02:00 Dose: 50 mg Documented By: JENNIFER Meclizine HCl (Meclizine Hcl 12.5 Mg Tablet) 25 mg PO Q6HR PRN PRN Reason: Vertigo Last Admin: 06/05/22 17:40 Dose: 25 mg Documented By: Admin: 06/05/22 11:02 Dose: 25 mg Documented By: JENNIFER Metoclopramide HCl (Metoclopramide 10 Mg/2 Ml Inj) 10 mg IV NOW ONE Stop: 06/04/22 09:26 Last Admin: 06/04/22 09:34 Dose: 10 mg Documented By: PAMELA Metoclopramide HCl (Metoclopramide 10 Mg/2 Ml Inj) 10 mg IV Q6HR PRN PRN Reason: Nausea And Vomiting Last Admin: 06/05/22 13:57 Dose: 10 mg Documented By: JENNIFER Naloxone HCl (Naloxone 0.4 Mg/Ml Vial) 0.2 mg IV Q2MIN PRN PRN Reason: Opiate Reversal Ondansetron HCl (Ondansetron 4 Mg/2 Ml Inj) 4 mg IV Q8HR PRN PRN Reason: Nausea And Vomiting Pantoprazole Sodium (Pantoprazole Dr 20 Mg Tablet) 20 mg PO 0600 [facility] Last Admin: 06/06/22 05:38 Dose: 20 mg Documented By: Admin: 06/05/22 06:25 Dose: Not Given Documented By: JUANY Sodium Chloride (Sodium Chloride 0.9% Flush) 10 ml IV PRN PRN PRN Reason: Flush Last Admin: 06/05/22 04:23 Dose: 10 ml Documented By: JUANY Sodium Chloride (Sodium Chloride 0.9% Flush) 10 ml IV BID [facility] Last Admin: 06/06/22 08:13 Dose: 10 ml Documented By: Admin: 06/05/22 20:10 Dose: 10 ml Documented By: Admin: 06/05/22 09:53 Dose: 10 ml Documented By: JENNIFER Reevaluation(s) Reevaluation #1: Patient has significant improvement after Valium Reevaluation #2: Patient attempted ambulation trial and was profoundly dizzy and failed, CT ordered Time: 03:51 Vital Signs Vital signs: Vital Signs - 8 hr 06/04/22 01:30 06/04/22 01:31 06/04/22 01:31 Pulse Rate 54 L 56 L Respiratory Rate 15 19 Blood Pressure 150/84 H Pulse Oximetry 97 96 06/04/22 02:00 06/04/22 02:00 06/04/22 02:30 Pulse Rate 58 L Respiratory Rate 14 Blood Pressure 152/71 H 140/74 Pulse Oximetry 96 06/04/22 02:30 06/04/22 03:00 06/04/22 03:00 Pulse Rate 57 L 61 Respiratory Rate 17 17 Blood Pressure 145/69 H Pulse Oximetry 94 96 06/04/22 03:26 06/04/22 03:26 06/04/22 03:30 Pulse Rate 55 L Respiratory Rate 13 Blood Pressure 143/69 H 141/73 H Pulse Oximetry 97 06/04/22 03:30 06/04/22 04:08 06/04/22 04:30 Pulse Rate 58 L 63 54 L Respiratory Rate 10 L 14 21 Blood Pressure Pulse Oximetry 96 95 06/04/22 05:00 06/04/22 05:30 06/04/22 06:00 Pulse Rate 61 56 L 58 L Respiratory Rate 20 18 15 Blood Pressure Pulse Oximetry 94 93 97 06/04/22 06:30 06/04/22 07:00 06/04/22 07:30 Pulse Rate 56 L 51 L 57 L Respiratory Rate 15 16 18 Blood Pressure Pulse Oximetry 95 96 94 06/04/22 08:00 06/04/22 08:00 Pulse Rate 64 Respiratory Rate 13 Blood Pressure 150/77 H Pulse Oximetry 96 <Fabio Pringle MD - Last Filed: 06/12/22 21:59> Orders Ordered: Discontinued Medications Acetaminophen (Acetaminophen 325 Mg Tablet) 650 mg PO Q6H PRN PRN Reason: Fever/Mild Pain (1-3) Last Admin: 06/05/22 17:40 Dose: 650 mg Documented By: JENNIFER Aspirin (Aspirin 81 Mg Chew Tab) 324 mg PO NOW ONE Stop: 06/03/22 22:10 Last Admin: 06/04/22 00:34 Dose: 324 mg Documented By: AP Aspirin (Aspirin Ec 81 Mg Tablet) 81 mg PO DAILY [facility] Last Admin: 06/06/22 08:13 Dose: 81 mg Documented By: Admin: 06/05/22 09:52 Dose: 81 mg Documented By: JENNIFER Atorvastatin Calcium (Atorvastatin 20 Mg Tablet) 20 mg PO BEDTIME [facility] Last Admin: 06/05/22 20:10 Dose: 20 mg Documented By: Admin: 06/04/22 21:24 Dose: 20 mg Documented By: CHRIS Diazepam (Diazepam 10 Mg/2 Ml Syringe) 2 mg IV NOW ONE Stop: 06/04/22 00:38 Last Admin: 06/04/22 00:41 Dose: 2 mg Documented By: AP Enoxaparin Sodium (Enoxaparin 40 Mg/0.4 Ml Syringe) 40 mg SUBCUT DAILY [facility] Last Admin: 06/06/22 08:13 Dose: 40 mg Documented By: Admin: 06/05/22 09:52 Dose: 40 mg Documented By: JENNIFER Sodium Chloride (Normal Saline 0.9%) 1,000 mls @ 1,000 mls/hr IV BOLUS ONE Stop: 06/04/22 02:51 Last Infusion: 06/04/22 03:54 Dose: 0 mls/hr Documented By: Admin: 06/04/22 02:00 Dose: 1,000 mls/hr Documented By: JENNIFER Sodium Chloride (Normal Saline 0.9%) 1,000 mls @ 1,000 mls/hr IV BOLUS ONE Stop: 06/04/22 06:48 Last Infusion: 06/04/22 09:03 Dose: 0 mls/hr Documented By: Admin: 06/04/22 06:55 Dose: 1,000 mls/hr Documented By: ANAYA Lorazepam (Lorazepam 1 Mg Tablet) 2 mg PO Q6HR PRN PRN Reason: vertigo, N/V Magnesium Hydroxide (Magnesium Hydroxide 30 Ml Udc) 30 ml PO DAILY PRN PRN Reason: Constipation Meclizine HCl (Meclizine Hcl 12.5 Mg Tablet) 50 mg PO NOW ONE Stop: 06/04/22 01:53 Last Admin: 06/04/22 02:00 Dose: 50 mg Documented By: JENNIFER Meclizine HCl (Meclizine Hcl 12.5 Mg Tablet) 25 mg PO Q6HR PRN PRN Reason: Vertigo Last Admin: 06/05/22 17:40 Dose: 25 mg Documented By: Admin: 06/05/22 11:02 Dose: 25 mg Documented By: JENNIFER Metoclopramide HCl (Metoclopramide 10 Mg/2 Ml Inj) 10 mg IV NOW ONE Stop: 06/04/22 09:26 Last Admin: 06/04/22 09:34 Dose: 10 mg Documented By: PAMELA Metoclopramide HCl (Metoclopramide 10 Mg/2 Ml Inj) 10 mg IV Q6HR PRN PRN Reason: Nausea And Vomiting Last Admin: 06/05/22 13:57 Dose: 10 mg Documented By: JENNIFER Naloxone HCl (Naloxone 0.4 Mg/Ml Vial) 0.2 mg IV Q2MIN PRN PRN Reason: Opiate Reversal Ondansetron HCl (Ondansetron 4 Mg/2 Ml Inj) 4 mg IV Q8HR PRN PRN Reason: Nausea And Vomiting Pantoprazole Sodium (Pantoprazole Dr 20 Mg Tablet) 20 mg PO 0600 [facility] Last Admin: 06/06/22 05:38 Dose: 20 mg Documented By: Admin: 06/05/22 06:25 Dose: Not Given Documented By: JUANY Sodium Chloride (Sodium Chloride 0.9% Flush) 10 ml IV PRN PRN PRN Reason: Flush Last Admin: 06/05/22 04:23 Dose: 10 ml Documented By: JUANY Sodium Chloride (Sodium Chloride 0.9% Flush) 10 ml IV BID [facility] Last Admin: 06/06/22 08:13 Dose: 10 ml Documented By: Admin: 06/05/22 20:10 Dose: 10 ml Documented By: Admin: 06/05/22 09:53 Dose: 10 ml Documented By: JENNIFER Vital Signs Vital signs: Vital Signs - 8 hr 06/04/22 01:30 06/04/22 01:31 06/04/22 01:31 Pulse Rate 54 L 56 L Respiratory Rate 15 19 Blood Pressure 150/84 H Pulse Oximetry 97 96 06/04/22 02:00 06/04/22 02:00 06/04/22 02:30 Pulse Rate 58 L Respiratory Rate 14 Blood Pressure 152/71 H 140/74 Pulse Oximetry 96 06/04/22 02:30 06/04/22 03:00 06/04/22 03:00 Pulse Rate 57 L 61 Respiratory Rate 17 17 Blood Pressure 145/69 H Pulse Oximetry 94 96 06/04/22 03:26 06/04/22 03:26 06/04/22 03:30 Pulse Rate 55 L Respiratory Rate 13 Blood Pressure 143/69 H 141/73 H Pulse Oximetry 97 06/04/22 03:30 06/04/22 04:08 06/04/22 04:30 Pulse Rate 58 L 63 54 L Respiratory Rate 10 L 14 21 Blood Pressure Pulse Oximetry 96 95 06/04/22 05:00 06/04/22 05:30 06/04/22 06:00 Pulse Rate 61 56 L 58 L Respiratory Rate 20 18 15 Blood Pressure Pulse Oximetry 94 93 97 06/04/22 06:30 06/04/22 07:00 06/04/22 07:30 Pulse Rate 56 L 51 L 57 L Respiratory Rate 15 16 18 Blood Pressure Pulse Oximetry 95 96 94 06/04/22 08:00 06/04/22 08:00 Pulse Rate 64 Respiratory Rate 13 Blood Pressure 150/77 H Pulse Oximetry 96 MDM - Chest Pain <Dann Arreola DO - Last Filed: 06/05/22 00:13> Lab Data Result diagrams: 06/03/22 22:05 06/03/22 22:05 Labs: Lab Results 06/03/22 06/03/22 06/03/22 Range/Units 22:05 22:05 22:05 WBC 8.1 (4.5-11.0) X10^3/uL RBC 5.05 (4.5-5.9) X10^6/uL Hgb 16.4 (13.5-17.5) g/dL Hct 46.7 (41-53) % MCV 92.4 (80-100) fL MCH 32.5 (26-34) PG MCHC 35.2 (30-36) % RDW 13.6 (11.6-14.8) % Plt Count 182 (150-400) X10^3/uL Neut % (Auto) 79.4 H (50-75) % Lymph % (Auto) 12.9 L (25-40) % [place] % (Auto) 6.2 (3-14) % Eos % (Auto) 0.9 L (2-4) % Baso % (Auto) 0.6 (0-2) % Neut # (Auto) 6400 (0203-2178) /uL Lymph # (Auto) 1000 L (6167-6225) /uL [place] # (Auto) 500 (0-900) /uL Eos # (Auto) 100 (0-450) /uL Baso # (Auto) 100 (0-100) /uL PT 12.4 (10.1-12.7) SECONDS INR 1.1 (0.9-1.3) APTT 26 (26-36) SECONDS Sodium 139 (137-145) mmol/L Potassium 4.1 (3.4-5.1) mmol/L Chloride 101 (98-107) mmol/L Carbon Dioxide 25 (22-32) mmol/L BUN 16 (9-20) mg/dL Creatinine 1.05 (0.66-1.25) mg/dL Estimated GFR > 60 (>60) mL/min BUN/Creatinine Ratio 15.2 (6-22) Glucose 167 H (70-100) mg/dL Calcium 9.1 (8.4-10.2) mg/dL Magnesium 2.0 (1.6-2.3) mg/dL Total Bilirubin 1.0 (0.2-1.3) mg/dL AST 34 (17-59) IU/L ALT 45 (<50) IU/L Alkaline Phosphatase 42 (38-126) U/L Total Creatine Kinase 122 (55-170) U/L CK-MB (CK-2) 0.44 (<2.37) ng/mL CK-MB (CK-2) Rel Index 0.4 L (1.5-5.0) % Troponin I < 0.012 (0.01-0.034) ng/mL Total Protein 7.9 (6.3-8.2) g/dL Albumin 4.8 (3.5-5.0) g/dL Globulin 3.1 (1.7-4.1) g/dL Albumin/Globulin Ratio 1.5 (1.0-2.8) SARS-CoV-2 (PCR) (Negative) Influenza A (RT-PCR) (NEGATIVE) Influenza B (RT-PCR) (NEGATIVE) RSV (PCR) (Negative) 06/04/22 06/04/22 Range/Units 00:19 00:30 WBC (4.5-11.0) X10^3/uL RBC (4.5-5.9) X10^6/uL Hgb (13.5-17.5) g/dL Hct (41-53) % MCV (80-100) fL MCH (26-34) PG MCHC (30-36) % RDW (11.6-14.8) % Plt Count (150-400) X10^3/uL Neut % (Auto) (50-75) % Lymph % (Auto) (25-40) % [place] % (Auto) (3-14) % Eos % (Auto) (2-4) % Baso % (Auto) (0-2) % Neut # (Auto) (8515-5945) /uL Lymph # (Auto) (7070-0061) /uL [place] # (Auto) (0-900) /uL Eos # (Auto) (0-450) /uL Baso # (Auto) (0-100) /uL PT (10.1-12.7) SECONDS INR (0.9-1.3) APTT (26-36) SECONDS Sodium (137-145) mmol/L Potassium (3.4-5.1) mmol/L Chloride (98-107) mmol/L Carbon Dioxide (22-32) mmol/L BUN (9-20) mg/dL Creatinine (0.66-1.25) mg/dL Estimated GFR (>60) mL/min BUN/Creatinine Ratio (6-22) Glucose (70-100) mg/dL Calcium (8.4-10.2) mg/dL Magnesium (1.6-2.3) mg/dL Total Bilirubin (0.2-1.3) mg/dL AST (17-59) IU/L ALT (<50) IU/L Alkaline Phosphatase (38-126) U/L Total Creatine Kinase (55-170) U/L CK-MB (CK-2) (<2.37) ng/mL CK-MB (CK-2) Rel Index (1.5-5.0) % Troponin I < 0.012 (0.01-0.034) ng/mL Total Protein (6.3-8.2) g/dL Albumin (3.5-5.0) g/dL Globulin (1.7-4.1) g/dL Albumin/Globulin Ratio (1.0-2.8) SARS-CoV-2 (PCR) Negative (Negative) Influenza A (RT-PCR) Flu a negative (NEGATIVE) Influenza B (RT-PCR) Flu b negative (NEGATIVE) RSV (PCR) Negative (Negative) Imaging Data Chest x-ray: Radiologist's Impression: No acute cardiopulmonary disease ECG Data Interpretation: [2248] EKG is normal sinus rhythm rate [58 ] and free of any signs of ischemia or ectopy. No ST segmental elevation or depression. No T wave inversions MDM Narrative Medical decision making narrative: 2645 -57-year-old male presents with profound dizziness with motion and a lateral nystagmus. Though he does feel improvement after above-stated therapies he still feels ambulation trial. Awaiting administration of fluids and further treatment Patient to be signed out to Dr. Pringle for final disposition <Fabio Pringle MD - Last Filed: 06/12/22 21:59> Lab Data Labs: Lab Results 06/03/22 06/03/22 06/03/22 Range/Units 22:05 22:05 22:05 WBC 8.1 (4.5-11.0) X10^3/uL RBC 5.05 (4.5-5.9) X10^6/uL Hgb 16.4 (13.5-17.5) g/dL Hct 46.7 (41-53) % MCV 92.4 (80-100) fL MCH 32.5 (26-34) PG MCHC 35.2 (30-36) % RDW 13.6 (11.6-14.8) % Plt Count 182 (150-400) X10^3/uL Neut % (Auto) 79.4 H (50-75) % Lymph % (Auto) 12.9 L (25-40) % [place] % (Auto) 6.2 (3-14) % Eos % (Auto) 0.9 L (2-4) % Baso % (Auto) 0.6 (0-2) % Neut # (Auto) 6400 (4804-0128) /uL Lymph # (Auto) 1000 L (3726-0612) /uL [place] # (Auto) 500 (0-900) /uL Eos # (Auto) 100 (0-450) /uL Baso # (Auto) 100 (0-100) /uL PT 12.4 (10.1-12.7) SECONDS INR 1.1 (0.9-1.3) APTT 26 (26-36) SECONDS Sodium 139 (137-145) mmol/L Potassium 4.1 (3.4-5.1) mmol/L Chloride 101 (98-107) mmol/L Carbon Dioxide 25 (22-32) mmol/L BUN 16 (9-20) mg/dL Creatinine 1.05 (0.66-1.25) mg/dL Estimated GFR > 60 (>60) mL/min BUN/Creatinine Ratio 15.2 (6-22) Glucose 167 H (70-100) mg/dL Calcium 9.1 (8.4-10.2) mg/dL Magnesium 2.0 (1.6-2.3) mg/dL Total Bilirubin 1.0 (0.2-1.3) mg/dL AST 34 (17-59) IU/L ALT 45 (<50) IU/L Alkaline Phosphatase 42 (38-126) U/L Total Creatine Kinase 122 (55-170) U/L CK-MB (CK-2) 0.44 (<2.37) ng/mL CK-MB (CK-2) Rel Index 0.4 L (1.5-5.0) % Troponin I < 0.012 (0.01-0.034) ng/mL Total Protein 7.9 (6.3-8.2) g/dL Albumin 4.8 (3.5-5.0) g/dL Globulin 3.1 (1.7-4.1) g/dL Albumin/Globulin Ratio 1.5 (1.0-2.8) SARS-CoV-2 (PCR) (Negative) Influenza A (RT-PCR) (NEGATIVE) Influenza B (RT-PCR) (NEGATIVE) RSV (PCR) (Negative) 06/04/22 06/04/22 Range/Units 00:19 00:30 WBC (4.5-11.0) X10^3/uL RBC (4.5-5.9) X10^6/uL Hgb (13.5-17.5) g/dL Hct (41-53) % MCV (80-100) fL MCH (26-34) PG MCHC (30-36) % RDW (11.6-14.8) % Plt Count (150-400) X10^3/uL Neut % (Auto) (50-75) % Lymph % (Auto) (25-40) % [place] % (Auto) (3-14) % Eos % (Auto) (2-4) % Baso % (Auto) (0-2) % Neut # (Auto) (5504-0299) /uL Lymph # (Auto) (5995-6493) /uL [place] # (Auto) (0-900) /uL Eos # (Auto) (0-450) /uL Baso # (Auto) (0-100) /uL PT (10.1-12.7) SECONDS INR (0.9-1.3) APTT (26-36) SECONDS Sodium (137-145) mmol/L Potassium (3.4-5.1) mmol/L Chloride (98-107) mmol/L Carbon Dioxide (22-32) mmol/L BUN (9-20) mg/dL Creatinine (0.66-1.25) mg/dL Estimated GFR (>60) mL/min BUN/Creatinine Ratio (6-22) Glucose (70-100) mg/dL Calcium (8.4-10.2) mg/dL Magnesium (1.6-2.3) mg/dL Total Bilirubin (0.2-1.3) mg/dL AST (17-59) IU/L ALT (<50) IU/L Alkaline Phosphatase (38-126) U/L Total Creatine Kinase (55-170) U/L CK-MB (CK-2) (<2.37) ng/mL CK-MB (CK-2) Rel Index (1.5-5.0) % Troponin I < 0.012 (0.01-0.034) ng/mL Total Protein (6.3-8.2) g/dL Albumin (3.5-5.0) g/dL Globulin (1.7-4.1) g/dL Albumin/Globulin Ratio (1.0-2.8) SARS-CoV-2 (PCR) Negative (Negative) Influenza A (RT-PCR) Flu a negative (NEGATIVE) Influenza B (RT-PCR) Flu b negative (NEGATIVE) RSV (PCR) Negative (Negative) MDM Narrative Medical decision making narrative: 2645 -57-year-old male presents with profound dizziness with motion and a lateral nystagmus. Though he does feel improvement after above-stated therapies he still fails ambulation trial. Awaiting administration of fluids and further treatment Patient to be signed out to Dr. Pringle for final disposition 57-year-old male presenting with vertiginous symptoms. Vital signs on presentation reassuring. Physical exam notable for 57-year-old male who is alert interactive, with ataxia and recurrent vomiting with tense at mobilizing. Initial concern for central versus peripheral vertigo, electrolyte derangement, infectious etiology, medication effect. Patient underwent CT imaging which showed no clear evidence of acute emergency pathology. Patient is treated symptomatically as above. On repeat assessment, patient continues to significant symptoms, unable to ambulate. MR imaging obtained and pending. Given patient continues to be unable to ambulate, discussed plan for admission and facilitate further management. Patient subsequently admitted to Hospital Medicine team for ongoing treatment. Discharge Plan Departure Patient Disposition: Admitted as Observation Clinical Impression: Obstructive sleep apnea syndrome in adult, Atypical chest pain, Vertigo Admit Date/Time: 06/04/22 09:57 Admit Provider: Fabio Sheridan
[2022-06-04] MEDS: ASPIRIN 81 MG CHEW TAB 324 MG PO (00:34)
[2022-06-04] MEDS: diazePAM 10 MG/2 ML SYRINGE 2 MG IV (00:41)
[2022-06-04 00:52] LABS: Troponin I < 0.012 ng/mL (0.01-0.034)
[2022-06-04] MEDS: SODIUM CHLORIDE 0.9% 1,000 ML 1000 ML IV ×2 (02:00→06:55)
[2022-06-04] MEDS: MECLIZINE HCL 12.5 MG TABLET 50 MG PO (02:00)
[2022-06-04 02:19] LABS: Influenza A - CEPHEID Flu A NEGATIVE (NEGATIVE); Influenza B - CEPHEID Flu B NEGATIVE (NEGATIVE); Respiratory Syncytial Virus Negative (Negative)
[2022-06-04 02:36] LABS: COVID-19 CEPHEID 4-PLEX PCR Negative (Negative)
--- NOTE | 2022-06-04 03:34 | PC.NURSE ---
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 Patient stood up and instantly got wobbly, complained of being dizzy, and visibly got wobbly.
--- NOTE | 2022-06-04 03:44 | DI.CT.S_ITS ---
PROCEDURE: CT HEAD/BRAIN WO CON INDICATIONS: dizzy, cannot ambulate TECHNIQUE: Noncontrast 4.5 mm thick angled axial sections acquired from the foramen magnum to the vertex, with coronal and sagittal reformats. For radiation dose reduction, the following was used: automated exposure control, adjustment of mA and/or kV according to patient size. COMPARISON: None. FINDINGS: Image quality: Excellent. CSF spaces: Basal cisterns are patent. No extra-axial fluid collections. Ventricles are normal in size and shape. Brain: No midline shift. No intracranial masses or hemorrhage. Haney-white matter interface is normal. Skull and face: Calvarium and visualized facial bones are intact, without suspicious lesions. Sinuses: Visualized sinuses and mastoids are clear. IMPRESSION: No CT evidence of acute intracranial pathology. No discrepancies from preliminary reading. Dictated by: Sanjiv Mcgovern M.D. on 06/04/2022 at 8:04 Approved by: Sanjiv Mcgovern M.D. on 06/04/2022 at 8:04
--- NOTE | 2022-06-04 09:25 | DI.MRI.S_ITS ---
PROCEDURE: MR HEAD/BRAIN WO CON INDICATIONS: eval subacute CVA, vertigo, n/v TECHNIQUE: Noncontrast axial T1 spin echo, axial T2 fast spin echo, sagittal and axial FLAIR, coronal T2 fast spin echo, axial gradient echo, axial diffusion and ADC through the brain. COMPARISON: [facility], CT, CT HEAD/BRAIN WO CON, 06/04/2022, 3:58. FINDINGS: Image quality: Excellent. CSF Spaces: Basal cisterns are patent. No extra-axial fluid collections. Ventricles are normal in size and shape. Brain: No intracranial masses or hemorrhage. Haney/white matter interface is normal. Brainstem appears normal. Diffusion-weighted images demonstrate no acute ischemic insult. Several foci of mild scattered T2 weighted hyperintensity can be seen within the white matter, primarily peripherally. Normal intravascular flow voids are present. Skull and face: Calvarium has normal marrow signal. Orbits appear normal. Sinuses: Sinuses and mastoids are clear. IMPRESSION: No findings of acute or subacute infarction can be seen. Several foci scattered T2 weighted hyperintensity can be seen within the white matter, which are primarily seen peripherally. These are nonspecific, yet are felt most likely to be related to early chronic small vessel ischemic change in a patient of this age. Dictated by: Myles Fierro M.D. on 06/04/2022 at 10:01 Approved by: Myles Fierro M.D. on 06/04/2022 at 10:02
[2022-06-04] MEDS: METOCLOPRAMIDE 10 MG/2 ML INJ IV (09:34)
--- NOTE | 2022-06-04 12:49 | PM.HP.1 ---
History of Present Illness History of Present Illness Date Patient Seen: 06/04/22 Time Patient Seen: 12:15 Chief complaint: vomiting, off balance, chest pain Narrative: Patient is a 57-year-old male with history of asthma, hyperlipidemia, hypogonadism, obesity, obstructive sleep apnea came in to ED due to acute onset of dizziness, nausea and vomiting. Symptoms started day prior around lunchtime when he became suddenly very dizzy and feeling off balance with intractable nausea and vomiting. Symptoms have persisted and were not relieved with meclizine or diazepam in the ED but patient states improved after Reglan. Patient endorses definite worsening of symptoms with movement. He denies double vision, loss of vision, headache, speech impairment, facial droop or unilateral weakness. Additionally patient endorses some drainage from eyes and nose which started since yesterday. Denies fevers, chills or cough. Tested negative for COVID, RSV and influenza. MRI of brain ordered from the ED showed several peripheral scattered foci of T2 weighted hyperintensity within the white matter which was considered a nonspecific finding possibly chronic small-vessel disease. There was no appearance of stroke, tumor or bleed. Patient states about 3 months ago he had an acute episode of tunnel vision while driving which lasted about 2 minutes and has not recurred since then. He does not have history of migraines. Additionally he reports periodic sharp pains in the left chest which are chronic and never exertion related. He has not had prior stress testing. Patient History Medical History Allergic rhinitis Asthma Bilateral pneumonia COVID-19 virus detected Depression Exposure to COVID-19 virus GERD (gastroesophageal reflux disease) Hyperlipidemia Hypogonadism in male Morbid obesity with BMI of 40.0-44.9, adult Obstructive sleep apnea of adult Snoring Viral syndrome Family & Social History Social History: household members significant other Prior Living Arrangements House lives independently Yes caregiver/support person No Safety & Behavioral: Feels Safe in Current Yes Environment Tobacco & Substance use: Smoking Status Never smoker alcohol intake current alcohol intake frequency 0-2 drinks per day Substance Use Type does not use Meds Home Medications and Allergies Home Medications Medication Instructions Recorded Confirmed Type testosterone 1.62 % (40.5 mg/2.5 2.5 gm TD QAM ##0 06/05/16 06/04/22 History gram) transdermal gel packet (AndroGel) [CO-Q-10] ##0 09/03/16 04/04/21 History multivitamin (Multiple Vitamins 1 tab PO QDAY ##0 02/18/17 06/04/22 History tablet) aspirin 81 mg tablet,delayed 81 mg PO DAILY 07/20/18 06/04/22 History release (Aspir-) Respironics Dreamstation CPAP #1 ea 09/30/18 04/04/21 History omeprazole 10 mg capsule,delayed 10 mg PO DAILY 06/04/22 06/04/22 History release simvastatin 40 mg tablet 40 mg PO QPM 06/04/22 06/04/22 History Allergies Allergy/AdvReac Type Severity Reaction Status Date / Time Penicillins [PENICILLINS] Allergy Intermediate Hives Verified 06/04/22 12:17 Review of Systems Review of Systems Narrative: Complete 10 point ROS otherwise negative. Exam Vital Signs (past 8 hours): - 06/04/22 05:00 06/04/22 05:30 06/04/22 06:00 Temperature Pulse Rate 61 56 L 58 L Respiratory Rate 20 18 15 Blood Pressure Pulse Oximetry 94 93 97 Oxygen Flow Rate 06/04/22 06:30 06/04/22 07:00 06/04/22 07:30 Temperature Pulse Rate 56 L 51 L 57 L Respiratory Rate 15 16 18 Blood Pressure Pulse Oximetry 95 96 94 Oxygen Flow Rate 06/04/22 08:00 06/04/22 08:00 06/04/22 08:30 Temperature Pulse Rate 64 59 L Respiratory Rate 13 16 Blood Pressure 150/77 H Pulse Oximetry 96 97 Oxygen Flow Rate 06/04/22 09:00 06/04/22 09:08 06/04/22 10:10 Temperature Pulse Rate 53 L 78 Respiratory Rate 17 21 Blood Pressure 126/66 Pulse Oximetry 94 96 Oxygen Flow Rate 06/04/22 11:45 Temperature 97.4 F L Pulse Rate 58 L Respiratory Rate 22 Blood Pressure 114/56 L Pulse Oximetry 96 Oxygen Flow Rate 0 Oxygen Delivery Method Room Air Oxygen Flow Rate 0 Narrative Exam Narrative: General: Alert pleasant heavy set male currently not actively vomiting HEENT: Nontraumatic, pupils 3 mm equal and reactive, EOMI, there is several beat saccade nystagmus with rightward gaze, no conjunctival redness or discharge, no facial droop Neck: No thyromegaly, no lymphadenopathy Lungs: Clear to auscultation Heart: Normal S1 and S2, regular rate and rhythm without murmur Abdomen: Nondistended, no HSM, nontender Extremities: Nonedematous Neurological: Affect normal, speech fluent without aphasia, no unilateral weakness Objective ECG Impression: EKG personally reviewed and shows normal sinus rhythm, no ST or T-wave changes, normal intervals Labs Result Diagrams: 06/03/22 22:05 06/03/22 22:05 Labs: Laboratory Results - last 24 hr 06/03/22 06/03/22 06/03/22 22:05 22:05 22:05 WBC 8.1 RBC 5.05 Hgb 16.4 Hct 46.7 MCV 92.4 MCH 32.5 MCHC 35.2 RDW 13.6 Plt Count 182 Neut % (Auto) 79.4 H Lymph % (Auto) 12.9 L Nicollet % (Auto) 6.2 Eos % (Auto) 0.9 L Baso % (Auto) 0.6 Neut # (Auto) 6400 Lymph # (Auto) 1000 L Nicollet # (Auto) 500 Eos # (Auto) 100 Baso # (Auto) 100 PT 12.4 INR 1.1 APTT 26 Sodium 139 Potassium 4.1 Chloride 101 Carbon Dioxide 25 BUN 16 Creatinine 1.05 Estimated GFR > 60 BUN/Creatinine Ratio 15.2 Glucose 167 H Calcium 9.1 Magnesium 2.0 Total Bilirubin 1.0 AST 34 ALT 45 Alkaline Phosphatase 42 Total Creatine Kinase 122 CK-MB (CK-2) 0.44 CK-MB (CK-2) Rel Index 0.4 L Troponin I < 0.012 Total Protein 7.9 Albumin 4.8 Globulin 3.1 Albumin/Globulin Ratio 1.5 SARS-CoV-2 (PCR) Influenza A (RT-PCR) Influenza B (RT-PCR) RSV (PCR) 06/04/22 06/04/22 00:19 00:30 WBC RBC Hgb Hct MCV MCH MCHC RDW Plt Count Neut % (Auto) Lymph % (Auto) Nicollet % (Auto) Eos % (Auto) Baso % (Auto) Neut # (Auto) Lymph # (Auto) Nicollet # (Auto) Eos # (Auto) Baso # (Auto) PT INR APTT Sodium Potassium Chloride Carbon Dioxide BUN Creatinine Estimated GFR BUN/Creatinine Ratio Glucose Calcium Magnesium Total Bilirubin AST ALT Alkaline Phosphatase Total Creatine Kinase CK-MB (CK-2) CK-MB (CK-2) Rel Index Troponin I < 0.012 Total Protein Albumin Globulin Albumin/Globulin Ratio SARS-CoV-2 (PCR) Negative Influenza A (RT-PCR) Flu a negative Influenza B (RT-PCR) Flu b negative RSV (PCR) Negative Assessment & Plan Assessment & Plan narrative: 1. Acute vertigo with intractable nausea and vomiting -this seems most likely viral related labyrinthitis/neuronitis since patient endorses concomitant eye and nasal drainage verses BPV versus cerebrovascular disease -brain MRI with findings of chronic nonspecific peripheral T2 weighted densities consistent with small-vessel disease versus other etiology -patient endorses episode of tunnel vision 3 months prior concerning for TIA versus atypical migraine -received IV hydration, Reglan, meclizine and diazepam in the ED -manage symptomatically with Reglan as needed, lorazepam as needed for vertigo, nausea and vomiting -diet as tolerated -recommended to patient he see neurologist as outpatient to review MRI findings as well as the episode of tunnel vision he had a few months ago 2. Atypical chest pain -patient endorses sharp chest pains which are nonexertional, this is unlikely to be cardiac related, has cardiac risk factors hyperlipidemia and also on testosterone replacement -recommended to discuss with PCP outpatient stress testing 3. Hyperlipidemia -continue simvastatin 4. LENCHO -continue CPAP Admit status: Observation DVT prophylaxis: Enoxaparin Time Spent With Patient Critical Care time: I spent a total of [] minutes of critical care time on this patient's care today; this time is exclusive of procedural time.
[2022-06-04] MEDS: ATORVASTATIN 20 MG TABLET PO (21:24)
[2022-06-05 04:00] VITALS: BP 111/70; PULSE 50; RESP 18; TEMP 36.5; O2SAT 96
[2022-06-05] MEDS: SODIUM CHLORIDE 0.9% FLUSH 10 ML IV ×3 (04:23→20:10)
[2022-06-05 06:00] VITALS: O2SAT 96
[2022-06-05 08:00] VITALS: BP 117/71; PULSE 50; RESP 18; TEMP 36.7; O2SAT 98
[2022-06-05] MEDS: ENOXAPARIN 40 MG/0.4 ML SYRINGE SUBCUT (09:52)
[2022-06-05] MEDS: ASPIRIN EC 81 MG TABLET PO (09:52)
--- NOTE | 2022-06-05 10:14 | P.PN_ITS ---
Subjective Subjective Date Patient Seen: 06/05/22 Interval history: Patient continuing to have nausea and vertigo but nystagmus has improved. He notes his vertigo is mainly due to head position and if he turns his head side to side it induces the symptoms. Exam Vital Signs (past 8 hours): - 06/06/22 03:49 06/06/22 03:49 06/06/22 10:00 Temperature 98.7 F Pulse Rate 52 L Respiratory Rate 16 Blood Pressure 107/62 Pulse Oximetry 97 97 97 Oxygen Delivery Method Room Air Room Air Oxygen Flow Rate 0 0 Oxygen Delivery Method Room Air Oxygen Flow Rate 0 Narrative Exam Narrative: General: Alert pleasant heavy set male currently not actively vomiting HEENT: Nontraumatic, pupils 3 mm equal and reactive, EOMI, there is several beat saccade nystagmus with rightward gaze, no conjunctival redness or discharge, no facial droop Neck: No thyromegaly, no lymphadenopathy Lungs: Clear to auscultation Heart: Normal S1 and S2, regular rate and rhythm without murmur Abdomen: Nondistended, no HSM, nontender Extremities: Nonedematous Neurological: Affect normal, speech fluent without aphasia, no unilateral weakness Objective Labs Result Diagrams: 06/03/22 22:05 06/03/22 22:05 [facility] Medical History Allergic rhinitis Asthma Bilateral pneumonia COVID-19 virus detected Depression Exposure to COVID-19 virus GERD (gastroesophageal reflux disease) Hyperlipidemia Hypogonadism in male Morbid obesity with BMI of 40.0-44.9, adult Obstructive sleep apnea of adult Snoring Viral syndrome Social History marital status: unmarried,living together details: with An Pena, lives in [place] household members: significant other lives independently: Yes caregiver/support person: No housing: house occupational status: employed current occupational exposures/hazards: Yes (employed at [employer]) Smoking Status: Never smoker alcohol intake: current substance use type: does not use Assessment & Plan Assessment & Plan narrative: 1. Acute vertigo with intractable nausea and vomiting -this seems most likely viral related labyrinthitis/neuronitis since patient endorses concomitant eye and nasal drainage verses BPPV as it is very head positional -brain MRI with findings of chronic nonspecific peripheral T2 weighted densities consistent with small-vessel disease versus other etiology -patient endorses episode of tunnel vision 3 months prior concerning for TIA versus atypical migraine -received IV hydration, Reglan, meclizine and diazepam in the ED -manage symptomatically with Reglan as needed, lorazepam as needed for vertigo, nausea and vomiting -diet as tolerated -recommended to patient he see neurologist as outpatient to review MRI findings as well as the episode of tunnel vision he had a few months ago -will attempt Reggie-Hallpike and Balta maneuver to asssess if BPPV 2. Atypical chest pain -patient endorses sharp chest pains which are nonexertional, this is unlikely to be cardiac related, has cardiac risk factors hyperlipidemia and also on testosterone replacement -recommended to discuss with PCP outpatient stress testing 3. Hyperlipidemia -continue simvastatin 4. LENCHO -continue CPAP Admit status: Observation DVT prophylaxis: Enoxaparin Time Spent With Patient Critical Care time: I spent a total of [] minutes of critical care time on this patient's care today; this time is exclusive of procedural time.
--- NOTE | 2022-06-05 10:15 | PC.NURSE ---
Addendum entered by Laina Singh R.N. 06/05/22 18:36: Patient given meclezine aroung 1730 and helpful for dizzineness. Addendum entered by Laina Singh R.N. 06/05/22 15:18: Patient given meclezine and reglan for nausea and dizziness, this seems to have helped him. He is lying in bed resting and continues to be helpful with care. Original Note: Patient is complaining of dizziness, will talk to Dr. Sheridan and ask if we can order some meclezine for patient, as he does not have this. Patient denies nausea or pain, he is just having some dizziness. is at bedside and helpful with patients care.
[2022-06-05] MEDS: MECLIZINE HCL 12.5 MG TABLET 25 MG PO ×2 (11:02→17:40)
[2022-06-05 12:00] VITALS: BP 123/78; PULSE 53; RESP 18; TEMP 36.4; O2SAT 93
[2022-06-05] MEDS: METOCLOPRAMIDE 10 MG/2 ML INJ IV (13:57)
--- NOTE | 2022-06-05 14:17 | CM.DANOTE ---
DCP: Assessment: Patient is a 57 yr old male who was admitted for poss CVA and is having N/V repeatedly. CM met with patient at the bedside and explained role. Patient was A&O x3 during CM visit. Patient currently lives in [place] with his and is Independent and drives at his baseline. Patient does not currently have a DPOA however would like to make medical decisions if needed. PCP: Ly Falcon, Insurance: 1st: [address] DC Plan A: DC home with no DC planning needs identified at this time. CM team will continue to follow to assist with any DC planning needs that may arise during his stay. 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 No: signing paperwork on thurs History Provided By Patient Has Patient been admitted in last 30 No days? Prior Living Arrangements House Household Members significant other Type of transporation used prior to Drives own vehicle admit Independent with ADL's Yes Is patient alert and oriented? Yes Caregiver for Another No Barriers to Discharge No Transportation Arrangement plans on transporting pt home on discharge Referrals Initiated None needed Whiteboard Updated in Patient Room with Yes name and ext. # of Dry Cleaning Machine Operator Review Status In Process Next Review Type Continued Stay Review
[2022-06-05 16:00] VITALS: BP 139/86; PULSE 51; RESP 20; TEMP 36.6; O2SAT 92
[2022-06-05] MEDS: ACETAMINOPHEN 325 MG TABLET 650 MG PO (17:40)
[2022-06-05 20:00] VITALS: BP 110/69; PULSE 53; RESP 20; TEMP 36.3; O2SAT 95
[2022-06-05] MEDS: ATORVASTATIN 20 MG TABLET PO (20:10)
--- NOTE | 2022-06-05 23:39 | PC.NURSE ---
Addendum entered by Gris Downing R.N. 06/06/22 05:39: Patient states he slept well. Reports he did still feel lightheaded when up to bathroom tonight but not vertigo. Denies pain or nausea. Original Note: Patient is alert and oriented. Breath sounds CTA with RA sat of 95%; using home CPAP for sleep. HRR but bradycardic with rate in 50's. Denied dizziness at time of assessment. Denied nausea. BT hypoactive but reports he had a BM earlier today. Denied dysuria, frequency or urgency with urination. Is independent with mobility although reports he feels a little unsteady at times when getting up. Instructed to call for staff assistance if he is feeling weak, dizzy or unsteady when getting out of bed and patient verbalized understanding. Has been refusing SCD's. Denied pain. Fall risk score is moderate.
[2022-06-06] VITALS: BP 116/71; PULSE 53; RESP 18; TEMP 36.7; O2SAT 97
[2022-06-06 03:49] VITALS: BP 107/62; PULSE 52; RESP 16; TEMP 37.1; O2SAT 97
[2022-06-06] MEDS: PANTOPRAZOLE DR 20 MG TABLET PO (05:38)
[2022-06-06] MEDS: ASPIRIN EC 81 MG TABLET PO (08:13)
[2022-06-06] MEDS: ENOXAPARIN 40 MG/0.4 ML SYRINGE SUBCUT (08:13)
[2022-06-06] MEDS: SODIUM CHLORIDE 0.9% FLUSH 10 ML IV (08:13)
[2022-06-06 10:00] VITALS: O2SAT 97
--- NOTE | 2022-06-06 10:19 | PM.DS.1 ---
History of Present Illness History of Present Illness Date Patient Seen: 06/06/22 Time Patient Seen: 12:15 Chief complaint: vomiting, off balance, chest pain Narrative: Patient is a 57-year-old male with history of asthma, hyperlipidemia, hypogonadism, obesity, obstructive sleep apnea came in to ED due to acute onset of dizziness, nausea and vomiting. Symptoms started day prior around lunchtime when he became suddenly very dizzy and feeling off balance with intractable nausea and vomiting. Symptoms have persisted and were not relieved with meclizine or diazepam in the ED but patient states improved after Reglan. Patient endorses definite worsening of symptoms with movement. He denies double vision, loss of vision, headache, speech impairment, facial droop or unilateral weakness. Additionally patient endorses some drainage from eyes and nose which started since yesterday. Denies fevers, chills or cough. Tested negative for COVID, RSV and influenza. MRI of brain ordered from the ED showed several peripheral scattered foci of T2 weighted hyperintensity within the white matter which was considered a nonspecific finding possibly chronic small-vessel disease. There was no appearance of stroke, tumor or bleed. Patient states about 3 months ago he had an acute episode of tunnel vision while driving which lasted about 2 minutes and has not recurred since then. He does not have history of migraines. Additionally he reports periodic sharp pains in the left chest which are chronic and never exertion related. He has not had prior stress testing. Discharge Providers Provider Date of admission: 06/04/22 09:57 Discharge Date: 06/06/22 Primary care physician: Ly Falcon PA-C Discharge provider: Fabio Sheridan, Summary Hospital Course Discharge Diagnosis: 1.? Acute vertigo with intractable nausea and vomiting -this seems most likely viral related labyrinthitis/neuronitis since patient endorses concomitant eye and nasal drainage verses BPPV as it is very head positional -brain MRI with findings of chronic nonspecific peripheral T2 weighted densities consistent with small-vessel disease versus other etiology -patient endorses episode of tunnel vision 3 months prior concerning for TIA versus atypical migraine -received IV hydration, Reglan, meclizine and diazepam in the ED -manage symptomatically with Reglan as needed, lorazepam as needed for vertigo, nausea and vomiting -diet as tolerated -recommended to patient he see neurologist as outpatient to review MRI findings as well as the episode of tunnel vision he had a few months ago -Reggie-Hallpike to asssess if BPPV was negative -vestibular PT consulted who diagnosed pt with vestibular neuritis due to resting nystagmus, said use meclizine and supportive care and refer for outpatient vestibular PT if ongoing symptoms 2.? Atypical chest pain -patient endorses sharp chest pains which are nonexertional, this is unlikely to be cardiac related, has cardiac risk factors hyperlipidemia and also on testosterone replacement -recommended to discuss with PCP outpatient stress testing 3.? Hyperlipidemia -continue simvastatin 4.? LENCHO -continue CPAP Hospital Course: Admitted for intractable NV and vertigo with nystagmus. Given meclizine and antiemetics and he slowly improved. Vestibular PT saw the patient and diagnosed with vestibular neuritis, likely from a viral source. Recommended supportive care and outpatient vestibular PT. Also had some sharp chest pains, and he will pursue outpatient stress test with his PCP. Time Spent with Patient Time spent: Greater than 30 minutes Exam Vital Signs (past 8 hours): - 06/06/22 03:49 06/06/22 03:49 06/06/22 10:00 Temperature 98.7 F Pulse Rate 52 L Respiratory Rate 16 Blood Pressure 107/62 Pulse Oximetry 97 97 97 Oxygen Delivery Method Room Air Room Air Oxygen Flow Rate 0 0 Oxygen Delivery Method Room Air Oxygen Flow Rate 0 Narrative Exam Narrative: General: Alert pleasant heavy set male currently not actively vomiting HEENT: Nontraumatic, pupils 3 mm equal and reactive, EOMI, there is several beat saccade nystagmus with rightward gaze, no conjunctival redness or discharge, no facial droop Neck: No thyromegaly, no lymphadenopathy Lungs: Clear to auscultation Heart: Normal S1 and S2, regular rate and rhythm without murmur Abdomen: Nondistended, no HSM, nontender Extremities: Nonedematous Neurological: Affect normal, speech fluent without aphasia, no unilateral weakness Objective Labs Result Diagrams: 06/03/22 22:05 06/03/22 22:05 [facility] Medical History Allergic rhinitis Asthma Bilateral pneumonia COVID-19 virus detected Depression Exposure to COVID-19 virus GERD (gastroesophageal reflux disease) Hyperlipidemia Hypogonadism in male Morbid obesity with BMI of 40.0-44.9, adult Obstructive sleep apnea of adult Snoring Viral syndrome Social History marital status: unmarried,living together details: with An Pena, lives in [place] household members: significant other lives independently: Yes caregiver/support person: No housing: house occupational status: employed current occupational exposures/hazards: Yes (employed at [employer]) Smoking Status: Never smoker alcohol intake: current substance use type: does not use Discharge Plan Discharge Plan Patient Disposition: Home Provider Discharge Comment: You were diagnosed during your admission by our vestibular specialist with neuritis, which is inflammation of the inner ear usually due to a viral illness which causes severe vertigo with nausea and vomiting. It typically will improve on it's own after 3 days. I've sent meclizine for the vertigo and reglan for nausea to your pharmacy. Discharge orders & Medications Prescriptions: New metoclopramide HCl [Reglan] 10 mg tablet 10 mg PO Q6H PRN (Reason: nausea and vomiting) Qty: 30 0RF meclizine 25 mg tablet 25 mg PO Q6HR PRN (Reason: dizziness) Qty: 30 0RF Continued testosterone [AndroGel] 2.5 GM gel in packet 2.5 gm TD QAM Qty: 0 multivitamin [Multiple Vitamins] 1 EACH tablet 1 tab PO QDAY Qty: 0 aspirin [Aspir-81] 81 mg Tablet,Delayed Release (Dr/Ec) 81 mg PO DAILY simvastatin 40 mg tablet 40 mg PO QPM Label Comments: take 1 tablet by mouth every evening omeprazole 10 mg Capsule,Delayed Release(Dr/Ec) 10 mg PO DAILY (DME) Respironics Dreamstation CPAP Qty: 1 Dose Instruction: As directed Label Comments: Pressure: 8-14 cmH2O DME: [facility] Rx Instructions: As directed Follow up/Referrals: Ly Falcon PA-C [Primary Care Provider] - 06/11/22 2:10 pm (Appt:06/11 @ 2:10 with víctor munson @ [address] [place] [address] please arrive 15 minutes prior to scheduled appointment time ) Visit Report/Discharge Packet Stand Alone Forms: Patient Portal/API, Stroke Signs & Symptoms Discharge Data Primary Care Provider: Ly Falcon Attending Provider: Fabio Sheridan
== END 2022-06-06 13:25 | disposition home or self-care (01) ==
LOC: ED 22:47 → AC 06-04 09:57
PROVIDERS: Admitting Provider Student in an Organized Health Care Education/Training Program; Emergency Provider Emergency Medicine; Family Provider Internal Medicine; PCP Student in an Organized Health Care Education/Training Program; Referring Provider Emergency Medicine; Visit Provider Student in an Organized Health Care Education/Training Program
DX: R07.89 Other chest pain (principal); R42 Dizziness and giddiness; R11.2 Nausea with vomiting, unspecified; G47.33 Obstructive sleep apnea (adult) (pediatric); E66.01 Morbid (severe) obesity due to excess calories; Z68.41 Body mass index [BMI] 40.0-44.9, adult; J44.9 Chronic obstructive pulmonary disease, unspecified; E78.5 Hyperlipidemia, unspecified; Z20.822 Contact with and (suspected) exposure to COVID-19
CPT/HCPCS: 0241U; 36415; 70450; 70551; 71045; 80053; 81003; 82550; 82553; 83735; 84484; 85025; 85610; 85730; 93005; 93010; 96361; 96372; 96374; 96375; 96376; 97162; 97530; 99285; G0378; J1650; J2765; J3360

== ENCOUNTER 2022-07-17 11:15 | Outpatient (RCR) | payer OTHER, BC, SELFPAY ==
[2022-06-04 12:06] VITALS: BMI 41.9
--- NOTE | 2022-06-18 20:55 | PT.OIE ---
Current Diagnoses Vestibular neuronitis, unspecified ear (06/18/22) Past Medical History (Last Reviewed 06/04/22 @ 01:55 by Dann Arreola DO) Allergic rhinitis Asthma Bilateral pneumonia COVID-19 virus detected Depression Exposure to COVID-19 virus GERD (gastroesophageal reflux disease) Hyperlipidemia Hypogonadism in male Morbid obesity with BMI of 40.0-44.9, adult Obstructive sleep apnea of adult Snoring Viral syndrome Visit Care Team Role Provider Type Ly Falcon PA-C Family Provider Physician Elevator Installer Primary Care Provider Specialty: Medical Address: [address] [place] [address], [facility] Email: [email or web address] [email or web address] PA-C Attending Provider Advanced Engineer Automated Equipment Referring Provider Specialty: Medical Address: [address] [place] [address], [facility] Email: Physical Therapy Initial Evaluation PT-OP-A Visit Information Start: 06/17/22 12:52 Freq: Status: Active Protocol: Document 06/18/22 08:14 AMB (Rec: 06/18/22 08:47 AMB [id number]) Out-Patient Physical Therapy Visit Information Visit Information Visit Type Initial Evaluation Visit Start Time 08:15 Visit Stop Time 09:00 Total Visit Minutes 45 Visit Number 1 PT-OP-B Current Condition Start: 06/17/22 12:52 Freq: Status: Active Protocol: Document 06/18/22 08:14 AMB (Rec: 06/18/22 08:47 AMB [id number]) Current Condition History of Current Condition Onset Date 06/03/22 Current Complaints L sided dizziness History of Current Condition Was hospitalized, diagnosed with vestibular neuritis. Currently weaning from prednisone. Went back to work yesterday at [employer] and that was a lot, overall feeling better than while hospitilized though. Reports light is an irritant, looks at monitors for work, commutes at night. Did drive down to [employer]. Reports could turn head to the left during the drive, but is taking it easy, this was a problem initially.. Describes dizziness at unstable. Does report a recent fall, couldn't catch himself when he caught his toe on something. Reports baseline tinnitis, otherwise no hearing changes. No double vision, n/t, swallow changes. Prior Treatments and Tests MRI CT in ED that were negative. Current Functional Impairments (Reported) Functional Limitations- ADL's Limted feeling of steadiness especially with higher level activities- walking on uneven surfaces, stairs. Looking to the left to drive. PT-OP-C Subjective Start: 06/17/22 12:52 Freq: Status: Active Protocol: Document 06/18/22 13:07 AMB (Rec: 06/18/22 13:10 AMB [id number]) Patient Questionnaires Dizziness Handicap Inventory DHI Score 60 DHI Functional Impairment 60 to 79% Impaired (Score 60- 79) PT-OP-O Vestibular Start: 06/17/22 12:52 Freq: Status: Active Protocol: Document 06/18/22 08:14 AMB (Rec: 06/18/22 08:47 AMB [id number]) Vestibular Assessment Visual Testing Smooth Pursuits Horizontal WFL Smooth Pursuits Vertical WFL Saccades Horizontal WFL Saccades Vertical WFL Thrust Head Positive Left Convergence Test WNL DVA (Line Degradation) 1 Vestibulo-Ocular Reflex (VOR1) Positive Positional Testing Depue-Hallpike Negative Left,Negative Right Vestibular Function Tests mCTSIB Position 1 30 mCTSIB Position 2 30 mCTSIB Position 3 sway mCTSIB Position 4 fall Comments Vestibular Comments Significant veering with walking with horizontal head turns, pt able to independently correct self, but veers outside of 3'. PT-OP-Q Treatments Start: 06/17/22 12:52 Freq: Status: Active Protocol: Document 06/19/22 08:23 AMB (Rec: 06/19/22 08:24 AMB [id number]) Neuro Re-Education Treatment Vestibular Rehabilitation VOR Retraining Reps/Duration 30 Other Activities walking with headturns Reps/Duration 20' PT-OP-T Assessment and Plan Start: 06/17/22 12:52 Freq: Status: Active Protocol: Document 06/18/22 08:15 AMB (Rec: 06/21/22 20:55 AMB [id number]) Physical Therapy Assessment Rehab Potential Rehabilitation Potential Good Evaluation Complexity Number of Personal Factors/Comorbidities 0 Number of Body Systems Impaired 3 Clinical Presentation at Evaluation Stable Impairments Impairments Activity Tolerance,Balance, Vestibular Goals Return to work Short Term Goal (STG) 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 STG Duration 6 weeks Usp Goal (LTG) Darius will work for an 8 hour shift with 1/10 dizziness or less. LTG Duration 12 weeks Vestibular HEP Short Term Goal (STG) Darius will be independent and consistent with a vestibular HEP. STG Duration 4 weeks Dynamic balance Short Term Goal (STG) Natasha will show improved dynamic balanc by scoring at least 21/24 on the DGI. STG Duration 4 weeks Usp Goal (LTG) Darius will walk while turning his head without veering or becoming off balance. LTG Duration 12 weeks Assessment Summary Assessment Darius attends physical therapy 2 weeks s/p hospitalization for vestibular neuritis. Head thrust test did show unilateral L weakness , but DVA was actually WNL. Pt struggled the most with more dynamic testing including walking with head turns and static balance testing including eyes closed on foam. He will benefit from physical therapy to help him return to the high level of function that he needs to tolerate work, driving, and community level mobility without falls. Physical Therapy Plan Frequency and Duration Frequency of Treatment 1x/Week Duration of treatment (weeks) 12 Plan of Care Start Date 06/18/22 Plan of Care End Date 09/10/22 Therapeutic Interventions Therapeutic Interventions Gait Training,Home Exercise Program,Manual Therapy, Neuromuscular Re-education, Self-Care/Home Management,Soft Tissue Mobilization, Therapeutic Exercises, Vestibular Rehabilitation Next Visit Focus/Plan Next Note Type Treatment Note Next Visit Plan Review VOR HEP and progress, consider VOR2, dynamic balance challenges.
--- NOTE | 2022-06-18 20:57 | PT.OPPOC ---
Physical, Occupational & Speech Therapy At [facility] Current Diagnoses Vestibular neuronitis, unspecified ear (06/18/22) Visit Care Team Role Provider Type Ly Falcon PA-C Family Provider Physician Turner In Primary Care Provider Specialty: Medical Address: [address] [place] [address], [id number] Email: [email or web address] Catrina Blancas PA-C Attending Provider Advanced Administration Internship Referring Provider Specialty: Medical Address: [address] [place] [address], [id number] Email: Plan Of Care PT-OP-T Assessment and Plan Start: 06/17/22 12:52 Freq: Status: Active Protocol: Document 06/18/22 08:15 AMB (Rec: 06/21/22 20:55 AMB [id number]) Physical Therapy Assessment Rehab Potential Rehabilitation Potential Good Evaluation Complexity Number of Personal Factors/Comorbidities 0 Number of Body Systems Impaired 3 Clinical Presentation at Evaluation Stable Impairments Impairments Activity Tolerance,Balance, Vestibular Goals Return to work Short Term Goal (STG) 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 STG Duration 6 weeks Residential Goal (LTG) Darius will work for an 8 hour shift with 1/10 dizziness or less. LTG Duration 12 weeks Vestibular HEP Short Term Goal (STG) Darius will be independent and consistent with a vestibular HEP. STG Duration 4 weeks Dynamic balance Short Term Goal (STG) Natasha will show improved dynamic balanc by scoring at least 21/24 on the DGI. STG Duration 4 weeks Residential Goal (LTG) Darius will walk while turning his head without veering or becoming off balance. LTG Duration 12 weeks Assessment Summary Assessment Darius attends physical therapy 2 weeks s/p hospitalization for vestibular neuritis. Head thrust test did show unilateral L weakness , but DVA was actually WNL. Pt struggled the most with more dynamic testing including walking with head turns and static balance testing including eyes closed on foam. He will benefit from physical therapy to help him return to the high level of function that he needs to tolerate work, driving, and community level mobility without falls. Physical Therapy Plan Frequency and Duration Frequency of Treatment 1x/Week Duration of treatment (weeks) 12 Plan of Care Start Date 06/18/22 Plan of Care End Date 09/10/22 Therapeutic Interventions Therapeutic Interventions Gait Training,Home Exercise Program,Manual Therapy, Neuromuscular Re-education, Self-Care/Home Management,Soft Tissue Mobilization, Therapeutic Exercises, Vestibular Rehabilitation Next Visit Focus/Plan Next Note Type Treatment Note Next Visit Plan Review VOR HEP and progress, consider VOR2, dynamic balance challenges. Plan of Care Dates Plan of Care Start Date 06/18/22 Plan of Care End Date 09/10/22 Electronically Signed by: Deb Gonzales, PT 06/21/222056 If you are in agreement with this Plan of Care, please return a signed and dated copy. I have reviewed this Plan of Care and certify that the skilled therapy services above are required to meet the patient?s needs. Physician Signature Date Printed Name and Credentials Clinical Instructor Signature Printed Name and Credentials
--- NOTE | 2022-06-25 12:07 | PT.OTN ---
Current Diagnoses Vestibular neuronitis, unspecified ear (06/25/22) Physical Therapy Treatment Note PT-OP-A Visit Information Start: 06/17/22 12:52 Freq: Status: Active Protocol: Document 06/25/22 11:17 DCW (Rec: 06/25/22 12:05 DCW [id number]) Out-Patient Physical Therapy Visit Information Visit Information Visit Type Treatment Note Visit Start Time 11:17 Visit Stop Time 12:00 Total Visit Minutes 43 Visit Number 2 Number of EXPLOSIVES OPERATOR Visits 0 PT-OP-B Current Condition Start: 06/17/22 12:52 Freq: Status: Active Protocol: Document 06/18/22 08:14 AMB (Rec: 06/18/22 08:47 AMB [id number]) Current Condition History of Current Condition Onset Date 06/03/22 Current Complaints L sided dizziness History of Current Condition Was hospitalized, diagnosed with vestibular neuritis. Currently weaning from prednisone. Went back to work yesterday at [employer] and that was a lot, overall feeling better than while hospitilized though. Reports light is an irritant, looks at monitors for work, commutes at night. Did drive down to [employer]. Reports could turn head to the left during the drive, but is taking it easy, this was a problem initially.. Describes dizziness at unstable. Does report a recent fall, couldn't catch himself when he caught his toe on something. Reports baseline tinnitis, otherwise no hearing changes. No double vision, n/t, swallow changes. Prior Treatments and Tests MRI CT in ED that were negative. Current Functional Impairments (Reported) Functional Limitations- ADL's Limted feeling of steadiness especially with higher level activities- walking on uneven surfaces, stairs. Looking to the left to drive. 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 PT-OP-O Vestibular Start: 06/17/22 12:52 Freq: Status: Active Protocol: Document 06/18/22 08:14 AMB (Rec: 06/18/22 08:47 AMB [id number]) Vestibular Assessment Visual Testing Smooth Pursuits Horizontal WFL Smooth Pursuits Vertical WFL Saccades Horizontal WFL Saccades Vertical WFL Thrust Head Positive Left Convergence Test WNL DVA (Line Degradation) 1 Vestibulo-Ocular Reflex (VOR1) Positive Positional Testing Pelzer-Hallpike Negative Left,Negative Right Vestibular Function Tests mCTSIB Position 1 30 mCTSIB Position 2 30 mCTSIB Position 3 sway mCTSIB Position 4 fall Comments Vestibular Comments Significant veering with walking with horizontal head turns, pt able to independently correct self, but veers outside of 3'. PT-OP-Q Treatments Start: 06/17/22 12:52 Freq: Status: Active Protocol: Document 06/25/22 11:17 DCW (Rec: 06/25/22 12:05 DCW [id number]) Neuro Re-Education Treatment Vestibular Rehabilitation Targets Details Targets with laser on floral board Position Standing on blue foam Visual Conflict Details Visual conflict board Background Semmes print Position Feet together VOR Retraining Details X1, X2 Position Seated Other Activities Turning to targets Comments Eyes closed turning to targets Eyes Closed Details EC Reps/Duration Blue Foam Foam ambulation Details Crossing various surfaces walking with headturns Reps/Duration 20' Comments 70 bpm metronome PT-OP-T Assessment and Plan Start: 06/17/22 12:52 Freq: Status: Active Protocol: Document 06/25/22 11:17 DCW (Rec: 06/25/22 12:05 DCW [id number]) Physical Therapy Assessment Impairments Impairments Activity Tolerance,Balance, Vestibular Goals Return to work Short Term Goal (STG) 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 STG Duration 6 weeks Underwriting Clerks Supervisor Goal (LTG) Darius will work for an 8 hour shift with 1/10 dizziness or less. LTG Duration 12 weeks Vestibular HEP Short Term Goal (STG) Darius will be independent and consistent with a vestibular HEP. STG Duration 4 weeks Dynamic balance Short Term Goal (STG) Natasha will show improved dynamic balanc by scoring at least 21/24 on the DGI. STG Duration 4 weeks [facility] Goal (LTG) Darius will walk while turning his head without veering or becoming off balance. LTG Duration 12 weeks Assessment Summary Assessment Pt tolerated treatment very well today, showing good signs of improving functional mobility, does not appear to be having as much difficulty with head turns, improved stability when up moving around. Physical Therapy Plan Frequency and Duration Frequency of Treatment 1x/Week Duration of treatment (weeks) 12 Plan of Care Start Date 06/18/22 Plan of Care End Date 09/10/22 Therapeutic Interventions Therapeutic Interventions Gait Training,Home Exercise Program,Manual Therapy, Neuromuscular Re-education, Self-Care/Home Management,Soft Tissue Mobilization, Therapeutic Exercises, Vestibular Rehabilitation Next Visit Focus/Plan Next Note Type Treatment Note Next Visit Plan Review VOR HEP and progress, consider VOR2, dynamic balance challenges.
--- NOTE | 2022-07-03 16:03 | PT.OTN ---
Current Diagnoses Vestibular neuronitis, unspecified ear (07/03/22) Physical Therapy Treatment Note PT-OP-A Visit Information Start: 06/17/22 12:52 Freq: Status: Active Protocol: Document 07/03/22 10:32 AMB (Rec: 07/03/22 11:04 AMB [id number]) Out-Patient Physical Therapy Visit Information Visit Information Visit Type Treatment Note Visit Start Time 10:30 Visit Stop Time 11:00 Total Visit Minutes 43 Visit Number 3 Number of SALES AND EVENTS COORDINATOR Visits 0 PT-OP-B Current Condition Start: 06/17/22 12:52 Freq: Status: Active Protocol: Document 06/18/22 08:14 AMB (Rec: 06/18/22 08:47 AMB [id number]) Current Condition History of Current Condition Onset Date 06/03/22 Current Complaints L sided dizziness History of Current Condition Was hospitalized, diagnosed with vestibular neuritis. Currently weaning from prednisone. Went back to work yesterday at [employer] and that was a lot, overall feeling better than while hospitilized though. Reports light is an irritant, looks at monitors for work, commutes at night. Did drive down to [place]. Reports could turn head to the left during the drive, but is taking it easy, this was a problem initially.. Describes dizziness at unstable. Does report a recent fall, couldn't catch himself when he caught his toe on something. Reports baseline tinnitis, otherwise no hearing changes. No double vision, n/t, swallow changes. Prior Treatments and Tests MRI CT in ED that were negative. Current Functional Impairments (Reported) Functional Limitations- ADL's Limted feeling of steadiness especially with higher level activities- walking on uneven surfaces, stairs. Looking to the left to drive. PT-OP-C Subjective Start: 06/17/22 12:52 Freq: Status: Active Protocol: Document 07/03/22 10:32 AMB (Rec: 07/03/22 11:04 AMB [id number]) OP-PT Subjective Patient Comments Patient Comments Pt reports having a floater yesterday for about an hour and a half. PT-OP-O Vestibular Start: 06/17/22 12:52 Freq: Status: Active Protocol: Document 06/18/22 08:14 AMB (Rec: 06/18/22 08:47 AMB [id number]) Vestibular Assessment Visual Testing Smooth Pursuits Horizontal WFL Smooth Pursuits Vertical WFL Saccades Horizontal WFL Saccades Vertical WFL Thrust Head Positive Left Convergence Test WNL DVA (Line Degradation) 1 Vestibulo-Ocular Reflex (VOR1) Positive Positional Testing Allen-Hallpike Negative Left,Negative Right Vestibular Function Tests mCTSIB Position 1 30 mCTSIB Position 2 30 mCTSIB Position 3 sway mCTSIB Position 4 fall Comments Vestibular Comments Significant veering with walking with horizontal head turns, pt able to independently correct self, but veers outside of 3'. PT-OP-Q Treatments Start: 06/17/22 12:52 Freq: Status: Active Protocol: Document 07/03/22 10:32 AMB (Rec: 07/03/22 11:04 AMB [id number]) Neuro Re-Education Treatment Vestibular Rehabilitation VOR Retraining Details X1, X2 Position standing Other Activities 3 step and bow Comments with head turns bosu ball Details EO Reps/Duration 1 min Comments added HT walking with headturns Reps/Duration 20' Comments 70 bpm metronome, added diagonal to vertical and horizontal PT-OP-T Assessment and Plan Start: 06/17/22 12:52 Freq: Status: Active Protocol: Document 07/03/22 10:32 AMB (Rec: 07/03/22 11:04 AMB [id number]) Physical Therapy Assessment Goals Return to work Short Term Goal (STG) 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 STG Duration 6 weeks Issue Clerk Goal (LTG) Darius will work for an 8 hour shift with 1/10 dizziness or less. LTG Duration 12 weeks Vestibular HEP Short Term Goal (STG) Darius will be independent and consistent with a vestibular HEP. STG Duration 4 weeks Dynamic balance Short Term Goal (STG) Natasha will show improved dynamic balanc by scoring at least 21/24 on the DGI. STG Duration 4 weeks Halfway Goal (LTG) Darius will walk while turning his head without veering or becoming off balance. LTG Duration 12 weeks Assessment Summary Assessment Progressed pt's exercises, overall stability improving rapidly. Physical Therapy Plan Frequency and Duration Frequency of Treatment 1x/Week Duration of treatment (weeks) 12 Plan of Care Start Date 06/18/22 Plan of Care End Date 09/10/22 Therapeutic Interventions Therapeutic Interventions Gait Training,Home Exercise Program,Manual Therapy, Neuromuscular Re-education, Self-Care/Home Management,Soft Tissue Mobilization, Therapeutic Exercises, Vestibular Rehabilitation Next Visit Focus/Plan Next Note Type Treatment Note Next Visit Plan Review VOR HEP and progress, consider VOR2, dynamic balance challenges.
--- NOTE | 2022-07-17 21:37 | PT.OTN ---
Addendum entered and electronically signed by Deb Gonzales, PT 07/19/22 07:38: 11:15-11:45 30 minute treatment Original Note: Current Diagnoses Vestibular neuronitis, unspecified ear (07/17/22) Physical Therapy Treatment Note PT-OP-A Visit Information Start: 06/17/22 12:52 Freq: Status: Active Protocol: Document 07/17/22 11:24 AMB (Rec: 07/17/22 11:40 AMB [id number]) Out-Patient Physical Therapy Visit Information Visit Information Visit Type Treatment Note Visit Start Time 11:15 Visit Stop Time 12:00 Total Visit Minutes 45 Visit Number 4 PT-OP-B Current Condition Start: 06/17/22 12:52 Freq: Status: Active Protocol: Document 06/18/22 08:14 AMB (Rec: 06/18/22 08:47 AMB [id number]) Current Condition History of Current Condition Onset Date 06/03/22 Current Complaints L sided dizziness History of Current Condition Was hospitalized, diagnosed with vestibular neuritis. Currently weaning from prednisone. Went back to work yesterday at [employer] and that was a lot, overall feeling better than while hospitilized though. Reports light is an irritant, looks at monitors for work, commutes at night. Did drive down to [place]. Reports could turn head to the left during the drive, but is taking it easy, this was a problem initially.. Describes dizziness at unstable. Does report a recent fall, couldn't catch himself when he caught his toe on something. Reports baseline tinnitis, otherwise no hearing changes. No double vision, n/t, swallow changes. Prior Treatments and Tests MRI CT in ED that were negative. Current Functional Impairments (Reported) Functional Limitations- ADL's Limted feeling of steadiness especially with higher level activities- walking on uneven surfaces, stairs. Looking to the left to drive. PT-OP-C Subjective Start: 06/17/22 12:52 Freq: Status: Active Protocol: Document 07/03/22 10:32 AMB (Rec: 07/03/22 11:04 AMB [id number]) OP-PT Subjective Patient Comments Patient Comments Pt reports having a floater yesterday for about an hour and a half. PT-OP-O Vestibular Start: 06/17/22 12:52 Freq: Status: Active Protocol: Document 06/18/22 08:14 AMB (Rec: 06/18/22 08:47 AMB [id number]) Vestibular Assessment Visual Testing Smooth Pursuits Horizontal WFL Smooth Pursuits Vertical WFL Saccades Horizontal WFL Saccades Vertical WFL Thrust Head Positive Left Convergence Test WNL DVA (Line Degradation) 1 Vestibulo-Ocular Reflex (VOR1) Positive Positional Testing Reggie-Hallpike Negative Left,Negative Right Vestibular Function Tests mCTSIB Position 1 30 mCTSIB Position 2 30 mCTSIB Position 3 sway mCTSIB Position 4 fall Comments Vestibular Comments Significant veering with walking with horizontal head turns, pt able to independently correct self, but veers outside of 3'. PT-OP-Q Treatments Start: 06/17/22 12:52 Freq: Status: Active Protocol: Document 07/17/22 11:15 AMB (Rec: 07/18/22 21:37 AMB [id number]) Neuro Re-Education Treatment Vestibular Rehabilitation VOR Retraining Details X1, X2 Position standing Other Activities bosu ball Details EO Reps/Duration 1 min Comments added HT Foam ambulation Details Crossing various surfaces walking with headturns Reps/Duration 20' Comments 70 bpm metronome, added diagonal to vertical and horizontal PT-OP-T Assessment and Plan Start: 06/17/22 12:52 Freq: Status: Active Protocol: Document 07/17/22 11:24 AMB (Rec: 07/17/22 11:40 AMB [id number]) Physical Therapy Assessment Goals Return to work Short Term Goal (STG) 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 STG Duration MET Fabrication Inspector Goal (LTG) Darius will work for an 8 hour shift with 1/10 dizziness or less. LTG Duration MET Vestibular HEP Short Term Goal (STG) Darius will be independent and consistent with a vestibular HEP. STG Duration MET Dynamic balance Short Term Goal (STG) Natasha will show improved dynamic balanc by scoring at least 21/24 on the DGI. STG Duration MET Longterm Goal (LTG) Darius will walk while turning his head without veering or becoming off balance. LTG Duration MET Assessment Summary Assessment Darius is feeling ready for discharge. 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 He scored 24/24 on the DGI, showing excellent improvement. He had no further questions and is therefore discharged. Physical Therapy Plan Discharge Physical Therapy Discharge Reasons Goals Met
== END 2022-07-22 11:53 | disposition home or self-care (01) ==
LOC: PHYS 11:15
PROVIDERS: Family Provider Student in an Organized Health Care Education/Training Program; PCP Student in an Organized Health Care Education/Training Program; Referring Provider Physician Assistant; Visit Provider Physician Assistant
DX: H81.20 Vestibular neuronitis, unspecified ear (principal)
CPT/HCPCS: 97112; 97161

== ENCOUNTER → 2023-03-17 13:41 | Outpatient (CLI) | payer OTHER, BC, SELFPAY ==
[2022-06-04 12:06] VITALS: BMI 41.9
--- NOTE | 2023-03-17 | DI.ECHO.S_ITS ---
[facility]---------+ [facility] +---------+ : : [address] [place] [place] : : : : [id number] : : : : Phone: [phone]+ Echocardiogram Report + + :Name: YADIRA ACEVES Study Date: 03/17/2023 Height: 70 in : :[facility] ReadingLocation: Weight: 296 lb : : Gender: Male BSA: 2.5 m2 : :: 1965 Age: 57 yrs BP: 145/77 mmHg: :Reason For Study: Chest Pain : :Ordering Physician: BAILEY, : :IRMA Performed By: Sherry Villafuerte : :Referring: IRMA NEW : + + Interpretation Summary 1) Normal left ventricular thickness, size, and systolic function (EF 60-65%). 2) Normal right ventricular size and function. 3) No significant valvular abnormalities. 4) No prior Echo available for comparison. Procedure: A two-dimensional transthoracic echocardiogram with color flow and Doppler was performed. The study quality was technically adequate. There is no prior echocardiogram noted for this patient. The patient was in normal sinus rhythm during the exam. Left Ventricle: The left ventricle is normal in size and wall thickness. The ejection fraction is estimated to be 60-65%. There are no obvious focal wall motion abnormalities noted but poor endocardial definition reduces the sensitivity for the detection of such. Diastolic parameters suggest a relaxation abnormality of the left ventricle, consistent with probable normal filling pressures. Right Ventricle: The right ventricle is normal in size and function. Atria: The left atrial size is normal. Right atrial size is normal. There is no Doppler evidence for an interatrial shunt. Mitral Valve: The mitral valve is normal. There is no mitral valve stenosis. There is trace mitral regurgitation. Aortic Valve: The aortic valve is not well visualized. The aortic valve is grossly normal. There is no aortic valve stenosis. No aortic regurgitation is present. Tricuspid Valve: The tricuspid valve is normal. There is no tricuspid stenosis. There is trace tricuspid regurgitation. Pulmonic Valve: The pulmonic valve is not well visualized. There is no pulmonic valvular stenosis. There is trace pulmonic regurgitation. Great Vessels: The aortic root is normal size. The ascending aorta is at the upper limits of normal in size. The pulmonary artery is normal size. The inferior vena cava was not well visualized. Pericardium/ Pleura There is no pericardial effusion. There is no pleural effusion. MMode/2D Measurements & Calculations LVIDd: 5.4 cm LVOT diam: 2.3 cm LVIDs: 3.4 cm Ao root diam: 3.5 cm FS: 37.0 % asc Aorta Diam: 3.6 cm IVSd: 1.0 cm LVPWd: 0.80 cm LV sena. diameter/BSA (cm/m^2): 2.2 LV sys. diameter/BSA (cm/m^2): 1.4 LA A2 area: 19.0 cm2 RA long axis: 5.4 cm LA A4 area: 12.8 cm2 RA area: 15.9 cm2 LA length (vol): 5.4 cm RA vol: 40.1 ml LA vol: 38.4 ml RA : 16.3 ml/m2 LA vol index: 15.6 ml/m2 RVD1 (basal): 3.9 cm LVLs ap4: 6.7 cm LVLd ap2: 7.9 cm TAPSE_phl: 2.6 cm LVLs ap2: 6.1 cm Doppler Measurements & Calculations Ao V2 max: 126.0 cm/sec LVOT Max Willie: 95.9 cm/sec Ao V2 mean: 85.2 cm/sec LV V1 max P.7 mmHg Ao max P.0 mmHg LV V1 VTI: 20.6 cm Ao mean P.0 mmHg KEV(I,D): 3.1 cm2 Ao V2 VTI: 27.3 cm KEV(V,D): 3.2 cm2 sev ratio: 0.76 KEV indexed to BSA (cm^2/m^2): 1.3 MV E max willie: 68.6 cm/sec TR max willie: 219.0 cm/sec MV A max willie: 70.6 cm/sec TR max P.2 mmHg MV E/A: 0.97 PA V2 max: 98.8 cm/sec Med Peak E' Willie: 6.3 cm/sec PA V2 mean: 68.4 cm/sec E/E' med: 10.9 PA mean P.0 mmHg Lat Peak E' Willie: 18.8 cm/sec PA pr(Accel): 47.9 mmHg E/E' lat: 3.6 E/e' average: 7.3 MV dec time: 0.22 sec SV(LVOT): 85.6 ml AV VR_phl: 0.76 KEV(VTI)/BSA_phl: 1.3 Reading Physician:11:01 AM
--- NOTE | 2023-03-20 08:12 | DI.NM.S_ITS ---
DATE OF SERVICE: 03/17/2023 PROCEDURE PERFORMED: Exercise treadmill stress test without imaging. ORDERING PROVIDER: Oxana New MD INDICATIONS: The patient is a 57-year-old male with palpitations, atypical chest discomfort, and exertional dyspnea. FINDINGS: 1. The patient was able to exercise for 9 minutes on a standard Dewayne protocol suggesting fair exercise capacity with an KATY of +5%, achieving 10.1 METS. 2. He had a normal heart rate response to exercise, achieving a maximum heart rate of 154 BPM (93% of his predicted maximum). He had a hypertensive blood pressure response with a resting blood pressure of 146/84 increasing to a maximum of 230/70. 3. He developed mild, 1/10 chest burning at around 4 minutes of exercise that was nonprogressive and resolved early in recovery. He had no other anginal discomfort. 4. His resting ECG showed sinus rhythm with normal ST segments without any ST-segment shifts or arrhythmias with stress except occasional isolated PACs in recovery but without complex ectopy. IMPRESSION: 1. Probable normal exercise treadmill stress test for ischemia without ECG evidence for ischemia. 2. Fair exercise capacity with mild chest burning that was nonprogressive and resolved in recovery. Clinical correlation is needed. 3. He had a hypertensive blood pressure response to exercise up a maximum blood pressure of 230/70. Darius Dang - HUBER/vasyl/EVERTON doc#: [id number]/job#: [id number] dd: 03/17/2023 16:51:00 dt: 03/18/2023 00:29:00 DICTATING MD/COPIES TO: Emil Rojas MD; Oxana New MD COPIES MNE: HAMIDA;
== END ==
PROVIDERS: Family Provider Student in an Organized Health Care Education/Training Program; PCP Student in an Organized Health Care Education/Training Program; Referring Provider Internal Medicine Cardiovascular Disease; Visit Provider Internal Medicine Cardiovascular Disease
DX: R07.89 Other chest pain (principal); R06.09 Other forms of dyspnea; R00.2 Palpitations
CPT/HCPCS: 93017; 93306

== ENCOUNTER 2023-03-26 09:00 | Outpatient (RCR) | payer OTHER, BC, SELFPAY ==
[2022-06-04 12:06] VITALS: BMI 41.9
--- NOTE | 2023-01-15 10:31 | PT.OIE ---
Current Diagnoses Primary osteoarthritis, right shoulder (01/15/23) Calcific tendinitis of right shoulder (01/15/23) Impingement syndrome of right shoulder (01/15/23) Past Medical History (Last Reviewed 06/04/22 @ 01:55 by Dann Arreola DO) Allergic rhinitis Asthma Bilateral pneumonia COVID-19 virus detected Depression Exposure to COVID-19 virus GERD (gastroesophageal reflux disease) Hyperlipidemia Hypogonadism in male Morbid obesity with BMI of 40.0-44.9, adult Obstructive sleep apnea of adult Snoring Viral syndrome Visit Care Team Role Provider Type Ly Falcon PA-C Family Provider Physician Roving Hand Primary Care Provider Specialty: Medical Address: [address] [place] [address], [id number] Email: [email or web address] Attending Provider Non-Staff Referring Provider Specialty: Medical Address: [address] [place] [address], [phone] Email: Physical Therapy Initial Evaluation PT-OP-A Visit Information Start: 01/14/23 15:35 Freq: Status: Active Protocol: Document 01/15/23 10:31 AM (Rec: 01/15/23 12:09 AM [id number]) Out-Patient Physical Therapy Visit Information Visit Information Visit Type Initial Evaluation Visit Start Time 10:36 Visit Stop Time 11:21 Total Visit Minutes 45 Visit Number 1 Evaluation Information Evaluation Date 01/15/23 PT-OP-B Current Condition Start: 01/14/23 15:35 Freq: Status: Active Protocol: Document 01/15/23 10:31 AM (Rec: 01/15/23 12:09 AM [id number]) Current Condition History of Current Condition Onset Date years Current Complaints Pt reports burning pain with sleep. Any use of R shoulder History of Current Condition Pt reports that pain started in the late 80s early 90s. Bench pressing incident when he was lifting 200#. Pt reports that he has always had difficulty putting his R hand behind his back Prior Treatments and Tests Pt had x-ray, no prior PT Treatment Goals Patient/Caregiver Goals To improve function and decrease pain at R shoulder Current Functional Impairments (Reported) Functional Limitations- ADL's Pt with difficulty doing tasks with shoulder flexion above 90 deg. Pt unable to throw. 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 PT-OP-C Subjective Start: 01/14/23 15:35 Freq: Status: Active Protocol: Document 01/15/23 10:31 AM (Rec: 01/15/23 12:09 AM [id number]) OP-PT Subjective Patient Comments Patient Reported Progress Worse Patient Questionnaires Quick Dash- Upper Extremity Quick Dash UE Score 37 Quick Dash UE Impairment 20 to 39% Impaired (Score 20- 39) OP-PT Pain Assessment Pain Assessment Grid Paper Pain Assessment Grid Completed Yes Location Right Anterior Shoulder Pain Location Details Pt reports pain at 2/10 now and 7/10 at worst Intensity 7 Scale Used Numeric (0 - 10) Description Aching,Burning Frequency Constant Radiating Location no radiating pain Pain Aggravating Factors Changing Position,ADL's, Activity Other Pain Aggravating Factors Sleeping. Pt has been sleeping on back or in prone. Pain Alleviating Factors Cold,Heat,Medication, Inactivity Home Pain Medication Use Pain Medications Used Yes: meloxicam, tylenol PRN Home Pain Medication Frequency meloxicam daily Pain Behaviors Pain Behaviors Guarding PT-OP-J Posture/Palpation/Skin Start: 01/14/23 15:35 Freq: Status: Active Protocol: Document 01/15/23 10:31 AM (Rec: 01/15/23 12:09 AM [id number]) Posture Evaluation Position Standing Head/C-Spine Posture Forward Head Shoulder Posture (L) Rounded,(R) Rounded,(L) Forward,(R) Forward Palpation Assessment Location One Palpation Location R shoulder Palpation Findings Soft Tissue Tightness,Muscle Guarding,Tenderness Palpation Details Discomfort with palpation of anterior deltoid. Pt without pain with palpation of scapular musculature, though reports that it is often sore in that region. Pt with stiffness of pec minor bilaterally PT-OP-K Range of Motion Start: 01/14/23 15:35 Freq: Status: Active Protocol: Document 01/15/23 10:31 AM (Rec: 01/15/23 12:09 AM [id number]) Shoulder Goniometric Range of Motion Shoulder Left Passive Shoulder ROM WFL Yes Flexion 165 Abduction 165 External Rotation at 45 degrees 65 Abduction Internal Rotation 80 Left Active Shoulder ROM WFL Yes Testing Position Sitting Flexion 145 Abduction 151 Internal Rotation Behind Back (text) T10 Comments Aply external T4 Right Passive Shoulder ROM WFL Yes Flexion 160 Abduction 160 External Rotation at 45 degrees 20 Abduction Internal Rotation 60 Right Active Shoulder ROM WFL Yes Flexion 145 Abduction 140 Internal Rotation Behind Back (text) L1 Comments Aply ER T3 PT-OP-L Special Tests Start: 01/14/23 15:35 Freq: Status: Active Protocol: Document 01/15/23 10:31 AM (Rec: 01/15/23 12:09 AM [id number]) Special Tests Shoulder Special Tests Speed's Biceps Test Results Positive pain Richey Farrukh Impingement Test Results Positive R Empty Can Test Results positive R Elevation Impingement Test Results positive R PT-OP-M Strength Start: 01/14/23 15:35 Freq: Status: Active Protocol: Document 01/15/23 10:31 AM (Rec: 01/15/23 12:09 AM [id number]) Shoulder Strength Shoulder Manual Muscle Testing Left Flexion 5 Normal Abduction (C5) 5 Normal External Rotation 5 Normal Internal Rotation 5 Normal Right Flexion 4- Good- Abduction (C5) 4 Good External Rotation 4- Good- Internal Rotation 4 Good Comments Pain with IR, ER and flexion Elbow/Forearm Strength Elbow and Forearm Manual Muscle Testing Left Flexion (C6) 5 Normal Extension (C7) 5 Normal Right Flexion (C6) 5 Normal Extension (C7) 5 Normal PT-OP-Q Treatments Start: 01/14/23 15:35 Freq: Status: Active Protocol: Document 01/15/23 10:31 AM (Rec: 01/15/23 12:09 AM [id number]) Therapeutic Exercises Standing Exercises 3 Standing Exercise Name Standing Row Side bilateral Resistance OTB Equipment Used band Reps/Minutes x10 2 Standing Exercise Name Bilateral shoulder ER Side bilateral Resistance OTB Equipment Used band Reps/Minutes x10 1 Standing Exercise Name Wall side Side bilateral Resistance none Reps/Minutes x10 PT-OP-T Assessment and Plan Start: 01/14/23 15:35 Freq: Status: Active Protocol: Document 01/15/23 10:31 AM (Rec: 01/15/23 12:09 AM [id number]) Physical Therapy Assessment Goals Five Impairment Quick Dash score Impairment Pt with 37% disability score on QuickDash outcome measure Hand Printed Circuit Board Assembler Goal (LTG) Pt will demonstrate Quickdash score <15% disability. LTG Duration 6 weeks Four Impairment R shoulder PROM ER mobility Impairment Pt with limitations with R PROM ER, demonstrating 20 degrees at 45 deg of abduction Short Term Goal (STG) Pt able to demonstate 45 deg of shoulder ER at 45 deg PROM. STG Duration 3 weeks Intermediate Goal (LTG) Pt with R=L ER PROM. LTG Duration 6 weeks Three Impairment Strength deficits Impairment Pt with difficulty with functional tasks secondary to R shoulder strength deficits at 4-/5 t0 4/5 Short Term Goal (STG) Pt able to demonstrate grossly 4+/5 R shoulder strength STG Duration 3 weeks Intermediate Goal (LTG) Pt able to demonstrate grossly 5/5 R shoudler strength LTG Duration 6 weeks Two Impairment Sleep difficulty Impairment Pt with sleep disturbance secondary to pain. Hand Printed Circuit Board Assembler Goal (LTG) Pt reports that he is able to sleep without disturbance secondary to shoulder pain. LTG Duration 6 weeks One Impairment Pain rating Impairment Pt reports pain at 7/10 at worst. Short Term Goal (STG) Pt to report pain at 4/10 at the worst. STG Duration 3 weeks Intermediate Goal (LTG) Pt to report pain at 2/10 at the worst. LTG Duration 6 weeks Assessment Summary Assessment Darius Dang presents to PT to address chronic R shoulder pain, which has been worsening overtime. Pt demonstrates forward shoulders bilaterally and anterior/ superior shoulder pain during assessment today. Pt demonstrates positive painful arc and signs and symptoms consistent with R rotator cuff impingement. Pt demonstrates functional shoulder flexion and abduction mobility, though limited in ER and IR mobility . Pt demonstrates fair shoulder strength, though demonstrated discomfort with flex/abd/ER. Pt demonstrates abducted scapulae with poor scapulohumeral mechanics. Pt with stiffness at bilateral pec minor, though unable to tolerate self-stretch, secondary to production of pain vs. stretch. Will progress manually at upcoming visits. Pt tolerated HEP well today, though encouraged to avoid painful ranges with all exercises. Pt would benefit from continued PT to decrease pain and improve strength/ mobility to improve tolerance to functional tasks. Physical Therapy Plan Frequency and Duration Frequency of Treatment 2x/Week Duration of treatment (weeks) 6 Plan of Care Start Date 01/15/23 Plan of Care End Date 02/26/23 Therapeutic Interventions Therapeutic Interventions Home Exercise Program,Joint Mobilizations,Manual Therapy, Neuromuscular Re-education, Patient/Caregiver Education, Self-Care/Home Management,Soft Tissue Mobilization,Taping, Therapeutic Activities, Therapeutic Exercises Modalities Cold Pack/Ice Massage,Electric Stimulation,Hot Packs, Ultrasound Next Visit Focus/Plan Next Note Type Treatment Note Next Visit Plan Progress R shoulder mobility and strength as tolerated.
--- NOTE | 2023-01-15 13:22 | PT.OPPOC ---
Physical, Occupational & Speech Therapy At [facility] Current Diagnoses Primary osteoarthritis, right shoulder (01/15/23) Calcific tendinitis of right shoulder (01/15/23) Impingement syndrome of right shoulder (01/15/23) Visit Care Team Role Provider Type Ly Falcon PA-C Family Provider Physician Technical Account Executive Primary Care Provider Specialty: Medical Address: [address] [place] [address], [id number] Email: [email or web address] Gina Sol PA-C Attending Provider Non-Staff Referring Provider Specialty: Medical Address: [address] [place] [address], [phone] Email: Plan Of Care PT-OP-T Assessment and Plan Start: 01/14/23 15:35 Freq: Status: Active Protocol: Document 01/15/23 10:31 AM (Rec: 01/15/23 12:09 AM [id number]) Physical Therapy Assessment Goals Five Impairment Quick Dash score Impairment Pt with 37% disability score on QuickDash outcome measure Steel Floor Pan Placing Supervisor Goal (LTG) Pt will demonstrate Quickdash score <15% disability. LTG Duration 6 weeks Four Impairment R shoulder PROM ER mobility Impairment Pt with limitations with R PROM ER, demonstrating 20 degrees at 45 deg of abduction Short Term Goal (STG) Pt able to demonstate 45 deg of shoulder ER at 45 deg PROM. STG Duration 3 weeks Steel Floor Pan Placing Supervisor Goal (LTG) Pt with R=L ER PROM. LTG Duration 6 weeks Three Impairment Strength deficits Impairment Pt with difficulty with functional tasks secondary to R shoulder strength deficits at 4-/5 t0 4/5 Short Term Goal (STG) Pt able to demonstrate grossly 4+/5 R shoulder strength STG Duration 3 weeks Steel Floor Pan Placing Supervisor Goal (LTG) Pt able to demonstrate grossly 5/5 R shoudler strength LTG Duration 6 weeks Two Impairment Sleep difficulty Impairment Pt with sleep disturbance secondary to pain. Prison Goal (LTG) Pt reports that he is able to sleep without disturbance secondary to shoulder pain. LTG Duration 6 weeks One Impairment Pain rating Impairment Pt reports pain at 7/10 at worst. Short Term Goal (STG) Pt to report pain at 4/10 at the worst. STG Duration 3 weeks Steel Floor Pan Placing Supervisor Goal (LTG) Pt to report pain at 2/10 at the worst. LTG Duration 6 weeks Assessment Summary Assessment Darius Dang presents to PT to address chronic R shoulder pain, which has been worsening overtime. Pt demonstrates forward shoulders bilaterally and anterior/ superior shoulder pain during assessment today. Pt demonstrates positive painful arc and signs and symptoms consistent with R rotator cuff impingement. Pt demonstrates functional shoulder flexion and abduction mobility, though limited in ER and IR mobility . Pt demonstrates fair shoulder strength, though demonstrated discomfort with flex/abd/ER. Pt demonstrates abducted scapulae with poor scapulohumeral mechanics. Pt with stiffness at bilateral pec minor, though unable to tolerate self-stretch, secondary to production of pain vs. stretch. Will progress manually at upcoming visits. Pt tolerated HEP well today, though encouraged to avoid painful ranges with all exercises. Pt would benefit from continued PT to decrease pain and improve strength/ mobility to improve tolerance to functional tasks. Physical Therapy Plan Frequency and Duration Frequency of Treatment 2x/Week Duration of treatment (weeks) 6 Plan of Care Start Date 01/15/23 Plan of Care End Date 02/26/23 Therapeutic Interventions Therapeutic Interventions Home Exercise Program,Joint Mobilizations,Manual Therapy, Neuromuscular Re-education, Patient/Caregiver Education, Self-Care/Home Management,Soft Tissue Mobilization,Taping, Therapeutic Activities, Therapeutic Exercises Modalities Cold Pack/Ice Massage,Electric Stimulation,Hot Packs, Ultrasound Next Visit Focus/Plan Next Note Type Treatment Note Next Visit Plan Progress R shoulder mobility and strength as tolerated. Plan of Care Dates Plan of Care Start Date 01/15/23 Plan of Care End Date 02/26/23 Electronically Signed by: Karissa Head, AMANDA 01/15/23 2418 If you are in agreement with this Plan of Care, please return a signed and dated copy. I have reviewed this Plan of Care and certify that the skilled therapy services above are required to meet the patient?s needs. Physician Signature Date Printed Name and Credentials Clinical Instructor Signature Printed Name and Credentials
--- NOTE | 2023-01-17 09:46 | PT.OTN ---
Current Diagnoses Primary osteoarthritis, right shoulder (01/17/23) Calcific tendinitis of right shoulder (01/17/23) Impingement syndrome of right shoulder (01/17/23) Physical Therapy Treatment Note PT-OP-A Visit Information Start: 01/14/23 15:35 Freq: Status: Active Protocol: Document 01/17/23 09:46 AM (Rec: 01/17/23 11:56 AM [id number]) Out-Patient Physical Therapy Visit Information Visit Information Visit Type Treatment Note Visit Start Time 09:46 Visit Stop Time 10:30 Total Visit Minutes 44 Visit Number 2 Number of CARTON MAKING MACHINIST Visits 0 PT-OP-B Current Condition Start: 01/14/23 15:35 Freq: Status: Active Protocol: Document 01/17/23 09:46 AM (Rec: 01/17/23 11:56 AM [id number]) Current Condition History of Current Condition Onset Date years Current Complaints Pt reports burning pain with sleep. Any use of R shoulder History of Current Condition Pt reports that pain started in the late 80s early 90s. Bench pressing incident when he was lifting 200#. Pt reports that he has always had difficulty putting his R hand behind his back Prior Treatments and Tests Pt had x-ray, no prior PT PT-OP-C Subjective Start: 01/14/23 15:35 Freq: Status: Active Protocol: Document 01/17/23 09:46 AM (Rec: 01/17/23 10:34 AM [id number]) OP-PT Subjective Patient Comments Patient Comments Pt reports that shoulder feels about the same. Pt reports exercises are going well. Pt reports symptoms at 0/10. Patient Reported Progress Same PT-OP-J Posture/Palpation/Skin Start: 01/14/23 15:35 Freq: Status: Active Protocol: Document 01/15/23 10:31 AM (Rec: 01/15/23 12:09 AM [id number]) Posture Evaluation Position Standing Head/C-Spine Posture Forward Head Shoulder Posture (L) Rounded,(R) Rounded,(L) Forward,(R) Forward Palpation Assessment Location One Palpation Location R shoulder Palpation Findings Soft Tissue Tightness,Muscle Guarding,Tenderness Palpation Details Discomfort with palpation of anterior deltoid. Pt without pain with palpation of scapular musculature, though reports that it is often sore in that region. Pt with stiffness of pec minor bilaterally PT-OP-K Range of Motion Start: 01/14/23 15:35 Freq: Status: Active Protocol: Document 01/15/23 10:31 AM (Rec: 01/15/23 12:09 AM [id number]) Shoulder Goniometric Range of Motion Shoulder Left Passive Shoulder ROM WFL Yes Flexion 165 Abduction 165 External Rotation at 45 degrees 65 Abduction Internal Rotation 80 Left Active Shoulder ROM WFL Yes Testing Position Sitting Flexion 145 Abduction 151 Internal Rotation Behind Back (text) T10 Comments Aply external T4 Right Passive Shoulder ROM WFL Yes Flexion 160 Abduction 160 External Rotation at 45 degrees 20 Abduction Internal Rotation 60 Right Active Shoulder ROM WFL Yes Flexion 145 Abduction 140 Internal Rotation Behind Back (text) L1 Comments Aply ER T3 PT-OP-L Special Tests Start: 01/14/23 15:35 Freq: Status: Active Protocol: Document 01/15/23 10:31 AM (Rec: 01/15/23 12:09 AM [id number]) Special Tests Shoulder Special Tests Speed's Biceps Test Results Positive pain Richey Farrukh Impingement Test Results Positive R Empty Can Test Results positive R Elevation Impingement Test Results positive R PT-OP-M Strength Start: 01/14/23 15:35 Freq: Status: Active Protocol: Document 01/15/23 10:31 AM (Rec: 01/15/23 12:09 AM [id number]) Shoulder Strength Shoulder Manual Muscle Testing Left Flexion 5 Normal Abduction (C5) 5 Normal External Rotation 5 Normal Internal Rotation 5 Normal Right Flexion 4- Good- Abduction (C5) 4 Good External Rotation 4- Good- Internal Rotation 4 Good Comments Pain with IR, ER and flexion Elbow/Forearm Strength Elbow and Forearm Manual Muscle Testing Left Flexion (C6) 5 Normal Extension (C7) 5 Normal Right Flexion (C6) 5 Normal Extension (C7) 5 Normal PT-OP-Q Treatments Start: 01/14/23 15:35 Freq: Status: Active Protocol: Document 01/17/23 09:46 AM (Rec: 01/17/23 10:34 AM [id number]) Cardio Equipment Upper Body Ergometer (UBE) Duration (Minutes) 5 Seat Position 17 Other Pt noticed clicking sensation with fwd, none with retro Therapeutic Exercises Prone Exercises 2 Prone Exercise Name Prone shoulder row Side right Resistance 0-3# 1 Prone Exercise Name prone shoulder extension Side right Resistance 0-3# Sidelying Exercises 3 Sidelying Exercise Name Shoulder flexion Side right Resistance AROM 2 Sidelying Exercise Name Abduction to 90 deg Side right Resistance AROM Comments Crepitus with abduction, slight decrease with manual scap upward rot 1 Sidelying Exercise Name ER Side right Resistance AROM Reps/Minutes x10 Comments Towel under elbow Standing Exercises 4 Standing Exercise Name Shoulder IR Side right Resistance Glynn TB Equipment Used TB Reps/Minutes 2x10 3 Standing Exercise Name Standing Row Side bilateral Resistance BTB Equipment Used band Reps/Minutes x20 2 Standing Exercise Name Unilateral shoulder ER Side right Resistance Glynn TB Equipment Used band Reps/Minutes 2x10 Manual Therapy Treatment Soft Tissue Mobilization 2 Body Location Pec muscles Mobilization Type Trigger Point Release Intensity/Depth Deep Body Position Supine 1 Body Location Periscapular, infraspinatus, posterior delt Mobilization Type Myofascial Release,Trigger Point Release Intensity/Depth Deep Body Position Prone Joint Mobilizations 2 Joint Shoulder Direction S-I Grade II Body Position Supine Reps/Duration x2 min 1 Joint Shoulder Direction A-P Grade II Body Position Supine Reps/Duration x2 min Comments A-P mob also used with manual ER, which increased range Manual Techniques 1 Type Pec minor stretch Body Location pec minor Body Position Supine Reps/Duration 1 min PT-OP-T Assessment and Plan Start: 01/14/23 15:35 Freq: Status: Active Protocol: Document 01/17/23 09:46 AM (Rec: 01/17/23 10:34 AM [id number]) Physical Therapy Assessment Rehab Potential Rehabilitation Potential Excellent Goals Five Impairment Quick Dash score Impairment Pt with 37% disability score on QuickDash outcome measure Charge Preparation Technician Goal (LTG) Pt will demonstrate Quickdash score <15% disability. LTG Duration 6 weeks Four Impairment R shoulder PROM ER mobility Impairment Pt with limitations with R PROM ER, demonstrating 20 degrees at 45 deg of abduction Short Term Goal (STG) Pt able to demonstate 45 deg of shoulder ER at 45 deg PROM. STG Duration 3 weeks Detention Goal (LTG) Pt with R=L ER PROM. LTG Duration 6 weeks Three Impairment Strength deficits Impairment Pt with difficulty with functional tasks secondary to R shoulder strength deficits at 4-/5 t0 4/5 Short Term Goal (STG) Pt able to demonstrate grossly 4+/5 R shoulder strength STG Duration 3 weeks Detention Goal (LTG) Pt able to demonstrate grossly 5/5 R shoudler strength LTG Duration 6 weeks Two Impairment Sleep difficulty Impairment Pt with sleep disturbance secondary to pain. Detention Goal (LTG) Pt reports that he is able to sleep without disturbance secondary to shoulder pain. LTG Duration 6 weeks One Impairment Pain rating Impairment Pt reports pain at 7/10 at worst. Short Term Goal (STG) Pt to report pain at 4/10 at the worst. STG Duration 3 weeks Charge Preparation Technician Goal (LTG) Pt to report pain at 2/10 at the worst. LTG Duration 6 weeks Progress Towards Goals Progress Towards Goals Progressing Toward Goals Assessment Summary Assessment Pt tolerated tx session well today, with occasional crepitus and mild discomfort noted. Pt demonstrates poor scapulohumeral dynamics, requiring occasional tactile cueing. Pt with tenderness along infraspinatus and pecs with palpation. Pt with improved manual shoulder ER range at 45 deg abduction with manual A-P mobilization. Pt would benefit from continued PT to progress R shoulder mobility, scapulohumeral rhythm and strength to decrease pain and improve function. Physical Therapy Plan Frequency and Duration Frequency of Treatment 2x/Week Duration of treatment (weeks) 6 Plan of Care Start Date 01/15/23 Plan of Care End Date 02/26/23 Therapeutic Interventions Therapeutic Interventions Home Exercise Program,Joint Mobilizations,Manual Therapy, Neuromuscular Re-education, Patient/Caregiver Education, Self-Care/Home Management,Soft Tissue Mobilization,Taping, Therapeutic Activities, Therapeutic Exercises Modalities Cold Pack/Ice Massage,Electric Stimulation,Hot Packs, Ultrasound Next Visit Focus/Plan Next Note Type Treatment Note Next Visit Plan Progress R shoulder mobility and strength as tolerated. Scapulohumeral training
--- NOTE | 2023-01-21 16:01 | PT.OTN ---
Current Diagnoses Primary osteoarthritis, right shoulder (01/21/23) Calcific tendinitis of right shoulder (01/21/23) Impingement syndrome of right shoulder (01/21/23) Physical Therapy Treatment Note PT-OP-A Visit Information Start: 01/14/23 15:35 Freq: Status: Active Protocol: Document 01/21/23 16:01 AM (Rec: 01/21/23 16:58 AM [id number]) Out-Patient Physical Therapy Visit Information Visit Information Visit Type Treatment Note Visit Start Time 16:03 Visit Stop Time 16:46 Total Visit Minutes 43 Visit Number 3 Number of INTERACTIVE MEDIA DESIGNER Visits 0 PT-OP-B Current Condition Start: 01/14/23 15:35 Freq: Status: Active Protocol: Document 01/21/23 16:01 AM (Rec: 01/21/23 16:58 AM [id number]) Current Condition History of Current Condition Onset Date years Current Complaints Pt reports burning pain with sleep. Any use of R shoulder History of Current Condition Pt reports that pain started in the late 80s early 90s. Bench pressing incident when he was lifting 200#. Pt reports that he has always had difficulty putting his R hand behind his back Prior Treatments and Tests Pt had x-ray, no prior PT PT-OP-C Subjective Start: 01/14/23 15:35 Freq: Status: Active Protocol: Document 01/21/23 16:01 AM (Rec: 01/21/23 16:58 AM [id number]) OP-PT Subjective Patient Comments Patient Comments Pt reports that his shoulder has been feeling crampy at his anterior shoulder that started yesterday. Pt reports that he was wearing a backpack yesterday and wondering if that might have contributed. Pt reports shoulder pain at 3/ 10 today. Pt reports that he did not take tylenol today, reporting that Friday was the last day that he took tylenol for pain. Pt also reports that he was doing a plank exercise and thinks that might have contributed to increase in symptoms Patient Reported Progress Worse PT-OP-J Posture/Palpation/Skin Start: 01/14/23 15:35 Freq: Status: Active Protocol: Document 01/15/23 10:31 AM (Rec: 01/15/23 12:09 AM [id number]) Posture Evaluation Position Standing Head/C-Spine Posture Forward Head Shoulder Posture (L) Rounded,(R) Rounded,(L) Forward,(R) Forward Palpation Assessment Location One Palpation Location R shoulder Palpation Findings Soft Tissue Tightness,Muscle Guarding,Tenderness Palpation Details Discomfort with palpation of anterior deltoid. Pt without pain with palpation of scapular musculature, though reports that it is often sore in that region. Pt with stiffness of pec minor bilaterally PT-OP-K Range of Motion Start: 01/14/23 15:35 Freq: Status: Active Protocol: Document 01/15/23 10:31 AM (Rec: 01/15/23 12:09 AM [id number]) Shoulder Goniometric Range of Motion Shoulder Left Passive Shoulder ROM WFL Yes Flexion 165 Abduction 165 External Rotation at 45 degrees 65 Abduction Internal Rotation 80 Left Active Shoulder ROM WFL Yes Testing Position Sitting Flexion 145 Abduction 151 Internal Rotation Behind Back (text) T10 Comments Aply external T4 Right Passive Shoulder ROM WFL Yes Flexion 160 Abduction 160 External Rotation at 45 degrees 20 Abduction Internal Rotation 60 Right Active Shoulder ROM WFL Yes Flexion 145 Abduction 140 Internal Rotation Behind Back (text) L1 Comments Aply ER T3 PT-OP-L Special Tests Start: 01/14/23 15:35 Freq: Status: Active Protocol: Document 01/15/23 10:31 AM (Rec: 01/15/23 12:09 AM [id number]) Special Tests Shoulder Special Tests Speed's Biceps Test Results Positive pain Richey Farrukh Impingement Test Results Positive R Empty Can Test Results positive R Elevation Impingement Test Results positive R PT-OP-M Strength Start: 01/14/23 15:35 Freq: Status: Active Protocol: Document 01/15/23 10:31 AM (Rec: 01/15/23 12:09 AM [id number]) Shoulder Strength Shoulder Manual Muscle Testing Left Flexion 5 Normal Abduction (C5) 5 Normal External Rotation 5 Normal Internal Rotation 5 Normal Right Flexion 4- Good- Abduction (C5) 4 Good External Rotation 4- Good- Internal Rotation 4 Good Comments Pain with IR, ER and flexion Elbow/Forearm Strength Elbow and Forearm Manual Muscle Testing Left Flexion (C6) 5 Normal Extension (C7) 5 Normal Right Flexion (C6) 5 Normal Extension (C7) 5 Normal PT-OP-Q Treatments Start: 01/14/23 15:35 Freq: Status: Active Protocol: Document 01/21/23 16:01 AM (Rec: 01/21/23 16:58 AM [id number]) Cardio Equipment Upper Body Ergometer (UBE) Duration (Minutes) 5 Seat Position 16 Other fwd/retro Therapeutic Exercises Prone Exercises 3 Prone Exercise Name Prone mid trap Side right Reps/Minutes x10 2 Prone Exercise Name Prone shoulder row Side right Resistance 3# Reps/Minutes 2x10 1 Prone Exercise Name Prone shoulder extension Side right Resistance 3# Reps/Minutes 2x10 Sidelying Exercises 3 Sidelying Exercise Name shoulder flexion Side right Resistance AROM Reps/Minutes x10 2 Sidelying Exercise Name Abduction to 90 degrees Comments crepitus, on hold 1 Sidelying Exercise Name ER Side right Resistance AROM Reps/Minutes x10 Comments towel under elbow, ROM within tolerance Sitting Exercises seated row Equipment Used 30# Reps/Minutes 2x10 Standing Exercises 4 Standing Exercise Name Shoulder IR Side right Resistance GTB Equipment Used TB Reps/Minutes 2x10 2 Standing Exercise Name Unilateral shoulder ER Side right Resistance OTB Equipment Used band Reps/Minutes 2x10 1 Standing Exercise Name On hold secondary to pain Manual Therapy Treatment Soft Tissue Mobilization 2 Body Location Pec muscles Mobilization Type Trigger Point Release Intensity/Depth Deep Body Position Supine 1 Body Location Periscapular, infraspinatus, posterior delt Mobilization Type Myofascial Release,Trigger Point Release Intensity/Depth Deep Body Position Prone Joint Mobilizations 2 Joint Shoulder Direction S-I Grade II Body Position Supine Reps/Duration x2 min 1 Joint Shoulder Direction A-P Grade II Body Position Supine Reps/Duration x2 min Comments A-P mob also used with manual ER, which increased range Taping Kinesiotape Body Location R shoulder Treatment Focus To decrease shoulder pain Type of Tape Kinesio Tape Comments 2 I bands (1 vertical, 1 horizontal), 1 Y band PT-OP-T Assessment and Plan Start: 01/14/23 15:35 Freq: Status: Active Protocol: Document 01/21/23 16:01 AM (Rec: 01/21/23 16:58 AM [id number]) Physical Therapy Assessment Goals Five Impairment Quick Dash score Impairment Pt with 37% disability score on QuickDash outcome measure Skilled Nursing Goal (LTG) Pt will demonstrate Quickdash score <15% disability. LTG Duration 6 weeks Four Impairment R shoulder PROM ER mobility Impairment Pt with limitations with R PROM ER, demonstrating 20 degrees at 45 deg of abduction Short Term Goal (STG) Pt able to demonstate 45 deg of shoulder ER at 45 deg PROM. STG Duration 3 weeks Primary Products Inspectors Goal (LTG) Pt with R=L ER PROM. LTG Duration 6 weeks Three Impairment Strength deficits Impairment Pt with difficulty with functional tasks secondary to R shoulder strength deficits at 4-/5 t0 4/5 Short Term Goal (STG) Pt able to demonstrate grossly 4+/5 R shoulder strength STG Duration 3 weeks Skilled Nursing Goal (LTG) Pt able to demonstrate grossly 5/5 R shoudler strength LTG Duration 6 weeks Two Impairment Sleep difficulty Impairment Pt with sleep disturbance secondary to pain. Primary Products Inspectors Goal (LTG) Pt reports that he is able to sleep without disturbance secondary to shoulder pain. LTG Duration 6 weeks One Impairment Pain rating Impairment Pt reports pain at 7/10 at worst. Short Term Goal (STG) Pt to report pain at 4/10 at the worst. STG Duration 3 weeks Skilled Nursing Goal (LTG) Pt to report pain at 2/10 at the worst. LTG Duration 6 weeks Progress Towards Goals Progress Towards Goals Progressing Toward Goals Assessment Summary Assessment Pt tolerated tx session well today, with occasional crepitus and mild discomfort. Pt continues to demonstrate difficulty with scapular retraction without anterior humeral glide, requiring cueing. Pt with decreased tenderness at scapular muscles with palpation today. Pt demonstrates improving shoulder strength with ability to progress resistance with exercises. Pt will return to PT later this week to continue to progress shoulder strength and mobility as tolerated. Physical Therapy Plan Frequency and Duration Frequency of Treatment 2x/Week Duration of treatment (weeks) 6 Plan of Care Start Date 01/15/23 Plan of Care End Date 02/26/23 Therapeutic Interventions Therapeutic Interventions Home Exercise Program,Joint Mobilizations,Manual Therapy, Neuromuscular Re-education, Patient/Caregiver Education, Self-Care/Home Management,Soft Tissue Mobilization,Taping, Therapeutic Activities, Therapeutic Exercises Modalities Cold Pack/Ice Massage,Electric Stimulation,Hot Packs, Ultrasound Next Visit Focus/Plan Next Note Type Treatment Note Next Visit Plan Assess KT effects, progress scapulohumeral training.
--- NOTE | 2023-01-23 16:07 | PT.OTN ---
Current Diagnoses Primary osteoarthritis, right shoulder (01/23/23) Calcific tendinitis of right shoulder (01/23/23) Impingement syndrome of right shoulder (01/23/23) Physical Therapy Treatment Note PT-OP-A Visit Information Start: 01/14/23 15:35 Freq: Status: Active Protocol: Document 01/23/23 16:07 AM (Rec: 01/23/23 16:55 AM [id number]) Out-Patient Physical Therapy Visit Information Visit Information Visit Type Treatment Note Visit Start Time 16:03 Visit Stop Time 16:46 Total Visit Minutes 43 Visit Number 4 PT-OP-B Current Condition Start: 01/14/23 15:35 Freq: Status: Active Protocol: Document 01/23/23 16:07 AM (Rec: 01/23/23 16:55 AM [id number]) Current Condition History of Current Condition Onset Date years Current Complaints Pt reports burning pain with sleep. Any use of R shoulder History of Current Condition Pt reports that pain started in the late 80s early 90s. Bench pressing incident when he was lifting 200#. Pt reports that he has always had difficulty putting his R hand behind his back Prior Treatments and Tests Pt had x-ray, no prior PT PT-OP-C Subjective Start: 01/14/23 15:35 Freq: Status: Active Protocol: Document 01/23/23 16:07 AM (Rec: 01/23/23 16:55 AM [id number]) OP-PT Subjective Patient Comments Patient Comments Pt will see ortho on Jan 31. Pt reports pain at 2/10 today. Pt with some tenderness at scapular muscles today. Pt reports continued cramping feeling. PT-OP-J Posture/Palpation/Skin Start: 01/14/23 15:35 Freq: Status: Active Protocol: Document 01/15/23 10:31 AM (Rec: 01/15/23 12:09 AM [id number]) Posture Evaluation Position Standing Head/C-Spine Posture Forward Head Shoulder Posture (L) Rounded,(R) Rounded,(L) Forward,(R) Forward Palpation Assessment Location One Palpation Location R shoulder Palpation Findings Soft Tissue Tightness,Muscle Guarding,Tenderness Palpation Details Discomfort with palpation of anterior deltoid. Pt without pain with palpation of scapular musculature, though reports that it is often sore in that region. Pt with stiffness of pec minor bilaterally PT-OP-K Range of Motion Start: 01/14/23 15:35 Freq: Status: Active Protocol: Document 01/15/23 10:31 AM (Rec: 01/15/23 12:09 AM [id number]) Shoulder Goniometric Range of Motion Shoulder Left Passive Shoulder ROM WFL Yes Flexion 165 Abduction 165 External Rotation at 45 degrees 65 Abduction Internal Rotation 80 Left Active Shoulder ROM WFL Yes Testing Position Sitting Flexion 145 Abduction 151 Internal Rotation Behind Back (text) T10 Comments Aply external T4 Right Passive Shoulder ROM WFL Yes Flexion 160 Abduction 160 External Rotation at 45 degrees 20 Abduction Internal Rotation 60 Right Active Shoulder ROM WFL Yes Flexion 145 Abduction 140 Internal Rotation Behind Back (text) L1 Comments Aply ER T3 PT-OP-L Special Tests Start: 01/14/23 15:35 Freq: Status: Active Protocol: Document 01/15/23 10:31 AM (Rec: 01/15/23 12:09 AM [id number]) Special Tests Shoulder Special Tests Speed's Biceps Test Results Positive pain Richey Farrukh Impingement Test Results Positive R Empty Can Test Results positive R Elevation Impingement Test Results positive R PT-OP-M Strength Start: 01/14/23 15:35 Freq: Status: Active Protocol: Document 01/15/23 10:31 AM (Rec: 01/15/23 12:09 AM [id number]) Shoulder Strength Shoulder Manual Muscle Testing Left Flexion 5 Normal Abduction (C5) 5 Normal External Rotation 5 Normal Internal Rotation 5 Normal Right Flexion 4- Good- Abduction (C5) 4 Good External Rotation 4- Good- Internal Rotation 4 Good Comments Pain with IR, ER and flexion Elbow/Forearm Strength Elbow and Forearm Manual Muscle Testing Left Flexion (C6) 5 Normal Extension (C7) 5 Normal Right Flexion (C6) 5 Normal Extension (C7) 5 Normal PT-OP-Q Treatments Start: 01/14/23 15:35 Freq: Status: Active Protocol: Document 01/23/23 16:07 AM (Rec: 01/23/23 16:55 AM [id number]) Therapeutic Exercises Prone Exercises 3 Prone Exercise Name Prone mid trap Side right Reps/Minutes 2x10 2 Prone Exercise Name Prone shoulder row Side right Resistance 4# Reps/Minutes 2x10 1 Prone Exercise Name Prone shoulder extension Side right Resistance 4# Reps/Minutes 2x10 Sitting Exercises seated row Equipment Used 30# Reps/Minutes x20 Standing Exercises CKC wall circles Standing Exercise Name Wall circles Side right Equipment Used yellow weighted ball Reps/Minutes x1 min 4 Standing Exercise Name Shoulder IR Side right Resistance GTB Equipment Used TB Reps/Minutes 2x15 2 Standing Exercise Name Unilateral shoulder ER Side right Resistance OTB Equipment Used band Reps/Minutes 2x15 1 Standing Exercise Name On hold secondary to pain Manual Therapy Treatment Soft Tissue Mobilization 2 Body Location Pec muscles Mobilization Type Trigger Point Release Intensity/Depth Deep Body Position Supine 1 Body Location Periscapular, infraspinatus, posterior delt Mobilization Type Myofascial Release,Trigger Point Release Intensity/Depth Deep Body Position Prone Joint Mobilizations 2 Joint Shoulder Direction S-I Grade II Body Position Supine Reps/Duration x2 min 1 Joint Shoulder Direction A-P Grade II Body Position Supine Reps/Duration x2 min Comments A-P mob also used with manual ER, which increased range Manual Techniques Shoulder PROM Type Shoulder PROM all directions Body Position Supine Reps/Duration x10 min Comments Increased focus on shoulder ER 1 Type Pec minor stretch Body Location pec minor Body Position Supine Reps/Duration 1 min PT-OP-T Assessment and Plan Start: 01/14/23 15:35 Freq: Status: Active Protocol: Document 01/23/23 16:07 AM (Rec: 01/23/23 16:55 AM [id number]) Physical Therapy Assessment Impairments Impairments Activity Tolerance,Functional Activities,Functional Mobility ,Pain,Posture,ROM,Soft Tissue Mobility,Strength Goals Five Impairment Quick Dash score Impairment Pt with 37% disability score on QuickDash outcome measure Fpc Goal (LTG) Pt will demonstrate Quickdash score <15% disability. LTG Duration 6 weeks Four Impairment R shoulder PROM ER mobility Impairment Pt with limitations with R PROM ER, demonstrating 20 degrees at 45 deg of abduction Short Term Goal (STG) Pt able to demonstate 45 deg of shoulder ER at 45 deg PROM. STG Duration 3 weeks Fpc Goal (LTG) Pt with R=L ER PROM. LTG Duration 6 weeks Three Impairment Strength deficits Impairment Pt with difficulty with functional tasks secondary to R shoulder strength deficits at 4-/5 t0 4/5 Short Term Goal (STG) Pt able to demonstrate grossly 4+/5 R shoulder strength STG Duration 3 weeks Fpc Goal (LTG) Pt able to demonstrate grossly 5/5 R shoudler strength LTG Duration 6 weeks Two Impairment Sleep difficulty Impairment Pt with sleep disturbance secondary to pain. Fpc Goal (LTG) Pt reports that he is able to sleep without disturbance secondary to shoulder pain. LTG Duration 6 weeks One Impairment Pain rating Impairment Pt reports pain at 7/10 at worst. Short Term Goal (STG) Pt to report pain at 4/10 at the worst. STG Duration 3 weeks Water Quality Manager Goal (LTG) Pt to report pain at 2/10 at the worst. LTG Duration 6 weeks Progress Towards Goals Progress Towards Goals Progressing Toward Goals Assessment Summary Assessment Pt demonstrates improving shoulder ER mobility. Pt with continued tenderness at infraspinatus and pecs. Pt demonstrates improving scapular control with prone exercises, though continues to require tactile cueing and manual assist at scapula to improve retraction. Pt would benefit from continued PT to progress shoulder mobility and strength as tolerated. Physical Therapy Plan Frequency and Duration Frequency of Treatment 2x/Week Duration of treatment (weeks) 6 Plan of Care Start Date 01/15/23 Plan of Care End Date 02/26/23 Therapeutic Interventions Therapeutic Interventions Home Exercise Program,Joint Mobilizations,Manual Therapy, Neuromuscular Re-education, Patient/Caregiver Education, Self-Care/Home Management,Soft Tissue Mobilization,Taping, Therapeutic Activities, Therapeutic Exercises Modalities Cold Pack/Ice Massage,Electric Stimulation,Hot Packs, Ultrasound Next Visit Focus/Plan Next Note Type Treatment Note Next Visit Plan trial foam roller, continue to progress scapular strenthening
--- NOTE | 2023-02-05 09:49 | PT.OTN ---
Current Diagnoses Primary osteoarthritis, right shoulder (02/05/23) Calcific tendinitis of right shoulder (02/05/23) Impingement syndrome of right shoulder (02/05/23) Physical Therapy Treatment Note PT-OP-A Visit Information Start: 01/14/23 15:35 Freq: Status: Active Protocol: Document 02/05/23 09:49 AM (Rec: 02/05/23 10:55 AM [id number]) Out-Patient Physical Therapy Visit Information Visit Information Visit Type Progress Note Visit Start Time 09:50 Visit Stop Time 10:35 Total Visit Minutes 45 Visit Number 5 PT-OP-B Current Condition Start: 01/14/23 15:35 Freq: Status: Active Protocol: Document 02/05/23 09:49 AM (Rec: 02/05/23 10:55 AM [id number]) Current Condition History of Current Condition Onset Date years Current Complaints Pt reports burning pain with sleep. Any use of R shoulder History of Current Condition Pt reports that pain started in the late 80s early 90s. Bench pressing incident when he was lifting 200#. Pt reports that he has always had difficulty putting his R hand behind his back Prior Treatments and Tests Pt had x-ray, no prior PT PT-OP-C Subjective Start: 01/14/23 15:35 Freq: Status: Active Protocol: Document 02/05/23 09:49 AM (Rec: 02/05/23 10:55 AM [id number]) OP-PT Subjective Patient Comments Patient Comments Pt reports that he missed his ortho appt, so he will see his ortho on 02/07. Pt reports pain at 1-2/10 currently. PT-OP-J Posture/Palpation/Skin Start: 01/14/23 15:35 Freq: Status: Active Protocol: Document 01/15/23 10:31 AM (Rec: 01/15/23 12:09 AM [id number]) Posture Evaluation Position Standing Head/C-Spine Posture Forward Head Shoulder Posture (L) Rounded,(R) Rounded,(L) Forward,(R) Forward Palpation Assessment Location One Palpation Location R shoulder Palpation Findings Soft Tissue Tightness,Muscle Guarding,Tenderness Palpation Details Discomfort with palpation of anterior deltoid. Pt without pain with palpation of scapular musculature, though reports that it is often sore in that region. Pt with stiffness of pec minor bilaterally PT-OP-K Range of Motion Start: 01/14/23 15:35 Freq: Status: Active Protocol: Document 02/05/23 09:49 AM (Rec: 02/05/23 10:57 AM [id number]) Shoulder Goniometric Range of Motion Shoulder Right Passive External Rotation at 45 degrees 65 Abduction PT-OP-L Special Tests Start: 01/14/23 15:35 Freq: Status: Active Protocol: Document 01/15/23 10:31 AM (Rec: 01/15/23 12:09 AM [id number]) Special Tests Shoulder Special Tests Speed's Biceps Test Results Positive pain Richey Farrukh Impingement Test Results Positive R Empty Can Test Results positive R Elevation Impingement Test Results positive R PT-OP-M Strength Start: 01/14/23 15:35 Freq: Status: Active Protocol: Document 02/05/23 09:49 AM (Rec: 02/05/23 10:57 AM [id number]) Shoulder Strength Shoulder Manual Muscle Testing Right Flexion 4 Good Abduction (C5) 4 Good External Rotation 4 Good Internal Rotation 4+ Good+ PT-OP-Q Treatments Start: 01/14/23 15:35 Freq: Status: Active Protocol: Document 02/05/23 09:49 AM (Rec: 02/05/23 10:55 AM [id number]) Cardio Equipment Upper Body Ergometer (UBE) Duration (Minutes) 5 Seat Position 16 Other fwd/retro Therapeutic Exercises Prone Exercises Prone low trap Prone Exercise Name Prone low trap Side right Reps/Minutes 2x10 3 Prone Exercise Name Prone mid trap Side right Reps/Minutes 2x10 2 Prone Exercise Name Prone shoulder row Side right Resistance 5 Reps/Minutes 2x10 1 Prone Exercise Name Prone shoulder extension Side right Resistance 5 Reps/Minutes 2x10 Sidelying Exercises 3 Sidelying Exercise Name shoulder flexion Side right Resistance AROM Reps/Minutes 2x10, 2nd set with 1# 1 Sidelying Exercise Name ER Side right Resistance AROM Reps/Minutes 2x10, 2nd set with 1# Comments towel under elbow, ROM within tolerance Sitting Exercises seated row Equipment Used 30# Reps/Minutes x20 Manual Therapy Treatment Soft Tissue Mobilization 2 Body Location Pec muscles Mobilization Type Trigger Point Release Intensity/Depth Deep Body Position Supine 1 Body Location Periscapular, infraspinatus, posterior delt Mobilization Type Myofascial Release,Trigger Point Release Intensity/Depth Deep Body Position Prone Joint Mobilizations 2 Joint Shoulder Direction S-I Grade II Body Position Supine Reps/Duration x2 min 1 Joint Shoulder Direction A-P Grade II Body Position Supine Reps/Duration x2 min Comments A-P mob also used with manual ER, which increased range PT-OP-T Assessment and Plan Start: 01/14/23 15:35 Freq: Status: Active Protocol: Document 02/05/23 09:49 AM (Rec: 02/05/23 10:55 AM [id number]) Physical Therapy Assessment Impairments Impairments Activity Tolerance,Functional Activities,Functional Mobility ,Pain,Posture,ROM,Soft Tissue Mobility,Strength Goals Five Impairment Quick Dash score Impairment Pt with 37% disability score on QuickDash outcome measure Vocational Ed Instructor Goal (LTG) Pt will demonstrate Quickdash score <15% disability. LTG Duration 6 weeks Four Impairment R shoulder PROM ER mobility Impairment Pt with limitations with R PROM ER, demonstrating 20 degrees at 45 deg of abduction Short Term Goal (STG) Pt able to demonstate 45 deg of shoulder ER at 45 deg PROM. GOAL MET on 02/05/23 at 60 deg STG Duration 3 weeks Care Home Goal (LTG) Pt with R=L ER PROM. LTG Duration 6 weeks Three Impairment Strength deficits Impairment Pt with difficulty with functional tasks secondary to R shoulder strength deficits at 4-/5 t0 4/5 Short Term Goal (STG) Pt able to demonstrate grossly 4+/5 R shoulder strength PROGRESSING TOWARDS GOAL: Pt with shoulder ROM 4-4+/5, though painful STG Duration 3 weeks Care Home Goal (LTG) Pt able to demonstrate grossly 5/5 R shoudler strength LTG Duration 6 weeks Two Impairment Sleep difficulty Impairment Pt with sleep disturbance secondary to pain. Vocational Ed Instructor Goal (LTG) Pt reports that he is able to sleep without disturbance secondary to shoulder pain. LTG Duration 6 weeks One Impairment Pain rating Impairment Pt reports pain at 7/10 at worst. Short Term Goal (STG) Pt to report pain at 4/10 at the worst. GOAL UNMET on 02/05/23. Pt reports pain has reached 9/10, which happened with sleep. STG Duration 3 weeks Care Home Goal (LTG) Pt to report pain at 2/10 at the worst. LTG Duration 6 weeks Progress Towards Goals Progress Towards Goals Progressing Toward Goals Progress Comments STG partially met Assessment Summary Assessment Pt demontstrates improving shoulder ER mobility. Pt continues to have crepitus with shoulder abduction ROM. Pt continues to demonstrate difficulty with scapular mobility. Pt will see referring provider on Friday and will determine POC following. Physical Therapy Plan Frequency and Duration Frequency of Treatment 2x/Week Duration of treatment (weeks) 6 Plan of Care Start Date 01/15/23 Plan of Care End Date 02/26/23 Therapeutic Interventions Therapeutic Interventions Home Exercise Program,Joint Mobilizations,Manual Therapy, Neuromuscular Re-education, Patient/Caregiver Education, Self-Care/Home Management,Soft Tissue Mobilization,Taping, Therapeutic Activities, Therapeutic Exercises Modalities Cold Pack/Ice Massage,Electric Stimulation,Hot Packs, Ultrasound Next Visit Focus/Plan Next Note Type Treatment Note Next Visit Plan foam roller, continue to progress scapular strenthening
--- NOTE | 2023-02-12 09:49 | PT.OTN ---
Current Diagnoses Primary osteoarthritis, right shoulder (02/12/23) Calcific tendinitis of right shoulder (02/12/23) Impingement syndrome of right shoulder (02/12/23) Physical Therapy Treatment Note PT-OP-A Visit Information Start: 01/14/23 15:35 Freq: Status: Active Protocol: Document 02/12/23 09:49 AM (Rec: 02/12/23 11:35 AM [id number]) Out-Patient Physical Therapy Visit Information Visit Information Visit Type Treatment Note Visit Start Time 09:50 Visit Stop Time 10:34 Total Visit Minutes 44 PT-OP-B Current Condition Start: 01/14/23 15:35 Freq: Status: Active Protocol: Document 02/12/23 09:49 AM (Rec: 02/12/23 11:35 AM [id number]) Current Condition History of Current Condition Onset Date years Current Complaints Pt reports burning pain with sleep. Any use of R shoulder History of Current Condition Pt reports that pain started in the late 80s early 90s. Bench pressing incident when he was lifting 200#. Pt reports that he has always had difficulty putting his R hand behind his back Prior Treatments and Tests Pt had x-ray, no prior PT PT-OP-C Subjective Start: 01/14/23 15:35 Freq: Status: Active Protocol: Document 02/12/23 09:49 AM (Rec: 02/12/23 11:35 AM [id number]) OP-PT Subjective Patient Comments Patient Comments Pt reports that he saw ortho and denied an injection at this time. They recommended that he continue PT through february. Pt reports that his shoulder has been less irritated since last PT session. PT-OP-J Posture/Palpation/Skin Start: 01/14/23 15:35 Freq: Status: Active Protocol: Document 01/15/23 10:31 AM (Rec: 01/15/23 12:09 AM [id number]) Posture Evaluation Position Standing Head/C-Spine Posture Forward Head Shoulder Posture (L) Rounded,(R) Rounded,(L) Forward,(R) Forward Palpation Assessment Location One Palpation Location R shoulder Palpation Findings Soft Tissue Tightness,Muscle Guarding,Tenderness Palpation Details Discomfort with palpation of anterior deltoid. Pt without pain with palpation of scapular musculature, though reports that it is often sore in that region. Pt with stiffness of pec minor bilaterally PT-OP-K Range of Motion Start: 01/14/23 15:35 Freq: Status: Active Protocol: Document 02/05/23 09:49 AM (Rec: 02/05/23 10:57 AM [id number]) Shoulder Goniometric Range of Motion Shoulder Right Passive External Rotation at 45 degrees 65 Abduction PT-OP-L Special Tests Start: 01/14/23 15:35 Freq: Status: Active Protocol: Document 01/15/23 10:31 AM (Rec: 01/15/23 12:09 AM [id number]) Special Tests Shoulder Special Tests Speed's Biceps Test Results Positive pain Richey Farrukh Impingement Test Results Positive R Empty Can Test Results positive R Elevation Impingement Test Results positive R PT-OP-M Strength Start: 01/14/23 15:35 Freq: Status: Active Protocol: Document 02/05/23 09:49 AM (Rec: 02/05/23 10:57 AM [id number]) Shoulder Strength Shoulder Manual Muscle Testing Right Flexion 4 Good Abduction (C5) 4 Good External Rotation 4 Good Internal Rotation 4+ Good+ PT-OP-Q Treatments Start: 01/14/23 15:35 Freq: Status: Active Protocol: Document 02/12/23 09:49 AM (Rec: 02/12/23 11:35 AM [id number]) Therapeutic Exercises Prone Exercises Prone low trap Prone Exercise Name Prone low trap Side right Reps/Minutes 2x10 3 Prone Exercise Name Prone mid trap Side right Reps/Minutes 2x10 2 Prone Exercise Name Prone shoulder row Side right Resistance 5 Reps/Minutes 3x10 1 Prone Exercise Name Prone shoulder extension Side right Resistance 5 Reps/Minutes 3x10 Sitting Exercises seated row Equipment Used 30# Reps/Minutes x20 Standing Exercises 4 Standing Exercise Name Shoulder IR Side right Resistance GTB-BTB Equipment Used TB Reps/Minutes 2x15 2 Standing Exercise Name Unilateral shoulder ER Side right Resistance OTB-GTB Equipment Used band Reps/Minutes 2x15 Other Exercises Foam roll Other Exercise Name foam roll thoracic spine and pec stretch Equipment Used black foam roller PT-OP-T Assessment and Plan Start: 01/14/23 15:35 Freq: Status: Active Protocol: Document 02/12/23 09:49 AM (Rec: 02/12/23 11:35 AM [id number]) Physical Therapy Assessment Impairments Impairments Activity Tolerance,Functional Activities,Functional Mobility ,Pain,Posture,ROM,Soft Tissue Mobility,Strength Goals Five Impairment Quick Dash score Impairment Pt with 37% disability score on QuickDash outcome measure Welder Experimental Goal (LTG) Pt will demonstrate Quickdash score <15% disability. LTG Duration 6 weeks Four Impairment R shoulder PROM ER mobility Impairment Pt with limitations with R PROM ER, demonstrating 20 degrees at 45 deg of abduction Short Term Goal (STG) Pt able to demonstate 45 deg of shoulder ER at 45 deg PROM. GOAL MET on 02/05/23 at 60 deg STG Duration 3 weeks Shelter Goal (LTG) Pt with R=L ER PROM. LTG Duration 6 weeks Three Impairment Strength deficits Impairment Pt with difficulty with functional tasks secondary to R shoulder strength deficits at 4-/5 t0 4/5 Short Term Goal (STG) Pt able to demonstrate grossly 4+/5 R shoulder strength PROGRESSING TOWARDS GOAL: Pt with shoulder ROM 4-4+/5, though painful STG Duration 3 weeks Welder Experimental Goal (LTG) Pt able to demonstrate grossly 5/5 R shoudler strength LTG Duration 6 weeks Two Impairment Sleep difficulty Impairment Pt with sleep disturbance secondary to pain. Welder Experimental Goal (LTG) Pt reports that he is able to sleep without disturbance secondary to shoulder pain. LTG Duration 6 weeks One Impairment Pain rating Impairment Pt reports pain at 7/10 at worst. Short Term Goal (STG) Pt to report pain at 4/10 at the worst. GOAL UNMET on 02/05/23. Pt reports pain has reached 9/10, which happened with sleep. STG Duration 3 weeks Welder Experimental Goal (LTG) Pt to report pain at 2/10 at the worst. LTG Duration 6 weeks Assessment Summary Assessment Pt continues to demonstrate improvement in shoulder ER mobility. Pt able to progress reps and resistance with exercises today, without increase in symptoms. Pt challenged with foam roller pec stretch secondary to horizontal abduction mobility. Pt demonstrates improving scapular control with prone exercises. Pt will return to PT later this week to continue to progress shoulder strength and mobility as tolerated. Physical Therapy Plan Frequency and Duration Frequency of Treatment 2x/Week Duration of treatment (weeks) 6 Plan of Care Start Date 01/15/23 Plan of Care End Date 02/26/23 Therapeutic Interventions Therapeutic Interventions Home Exercise Program,Joint Mobilizations,Manual Therapy, Neuromuscular Re-education, Patient/Caregiver Education, Self-Care/Home Management,Soft Tissue Mobilization,Taping, Therapeutic Activities, Therapeutic Exercises Modalities Cold Pack/Ice Massage,Electric Stimulation,Hot Packs, Ultrasound Next Visit Focus/Plan Next Note Type Treatment Note Next Visit Plan foam roller, continue to progress scapular strenthening
--- NOTE | 2023-02-14 09:48 | PT.OTN ---
Current Diagnoses Primary osteoarthritis, right shoulder (02/14/23) Calcific tendinitis of right shoulder (02/14/23) Impingement syndrome of right shoulder (02/14/23) Physical Therapy Treatment Note PT-OP-A Visit Information Start: 01/14/23 15:35 Freq: Status: Active Protocol: Document 02/14/23 09:48 AM (Rec: 02/14/23 10:49 AM [id number]) Out-Patient Physical Therapy Visit Information Visit Information Visit Type Treatment Note Visit Start Time 09:48 Visit Stop Time 10:33 Total Visit Minutes 45 Visit Number 7 PT-OP-B Current Condition Start: 01/14/23 15:35 Freq: Status: Active Protocol: Document 02/12/23 09:49 AM (Rec: 02/12/23 11:35 AM [id number]) Current Condition History of Current Condition Onset Date years Current Complaints Pt reports burning pain with sleep. Any use of R shoulder History of Current Condition Pt reports that pain started in the late 80s early 90s. Bench pressing incident when he was lifting 200#. Pt reports that he has always had difficulty putting his R hand behind his back Prior Treatments and Tests Pt had x-ray, no prior PT PT-OP-C Subjective Start: 01/14/23 15:35 Freq: Status: Active Protocol: Document 02/14/23 09:48 AM (Rec: 02/14/23 10:49 AM [id number]) OP-PT Subjective Patient Comments Patient Comments Pt reports that his symptoms have been off and on. Pt reports that he is sore in the morning, but improved symptoms once he gets moving. PT-OP-J Posture/Palpation/Skin Start: 01/14/23 15:35 Freq: Status: Active Protocol: Document 01/15/23 10:31 AM (Rec: 01/15/23 12:09 AM [id number]) Posture Evaluation Position Standing Head/C-Spine Posture Forward Head Shoulder Posture (L) Rounded,(R) Rounded,(L) Forward,(R) Forward Palpation Assessment Location One Palpation Location R shoulder Palpation Findings Soft Tissue Tightness,Muscle Guarding,Tenderness Palpation Details Discomfort with palpation of anterior deltoid. Pt without pain with palpation of scapular musculature, though reports that it is often sore in that region. Pt with stiffness of pec minor bilaterally PT-OP-K Range of Motion Start: 01/14/23 15:35 Freq: Status: Active Protocol: Document 02/05/23 09:49 AM (Rec: 02/05/23 10:57 AM [id number]) Shoulder Goniometric Range of Motion Shoulder Right Passive External Rotation at 45 degrees 65 Abduction PT-OP-L Special Tests Start: 01/14/23 15:35 Freq: Status: Active Protocol: Document 01/15/23 10:31 AM (Rec: 01/15/23 12:09 AM [id number]) Special Tests Shoulder Special Tests Speed's Biceps Test Results Positive pain Richey Farrukh Impingement Test Results Positive R Empty Can Test Results positive R Elevation Impingement Test Results positive R PT-OP-M Strength Start: 01/14/23 15:35 Freq: Status: Active Protocol: Document 02/05/23 09:49 AM (Rec: 02/05/23 10:57 AM [id number]) Shoulder Strength Shoulder Manual Muscle Testing Right Flexion 4 Good Abduction (C5) 4 Good External Rotation 4 Good Internal Rotation 4+ Good+ PT-OP-Q Treatments Start: 01/14/23 15:35 Freq: Status: Active Protocol: Document 02/14/23 09:48 AM (Rec: 02/14/23 10:49 AM [id number]) Cardio Equipment Upper Body Ergometer (UBE) Duration (Minutes) 5 Seat Position 16 Other fwd/retro Therapeutic Exercises Prone Exercises Prone low trap Prone Exercise Name Prone low trap Side right Reps/Minutes 2x10 Comments Then with bilateral UE With dowel in hands in prone 3 Prone Exercise Name Prone mid trap Side right Reps/Minutes 2x10 2 Prone Exercise Name Prone shoulder row Side right Resistance 5 Reps/Minutes 2x15 1 Prone Exercise Name Prone shoulder extension Side right Resistance 5 Reps/Minutes 2x15 Sitting Exercises Lat pull down Sitting Exercise Name Seated lat pull down Resistance 40# Seated lat stretch Sitting Exercise Name Dowel in hand, seated in rolling chair, elbows on table and scoot back Side bilateral Reps/Minutes 2x30 sec seated row Equipment Used 40# Reps/Minutes 2x10 Standing Exercises 4 Standing Exercise Name Shoulder IR Side right Resistance BTB Equipment Used TB Reps/Minutes 2x15 2 Standing Exercise Name Unilateral shoulder ER Side right Resistance GTB Equipment Used band Reps/Minutes 2x15 Manual Therapy Treatment Soft Tissue Mobilization 2 Body Location Pec muscles Mobilization Type Trigger Point Release Intensity/Depth Deep Body Position Supine 1 Body Location Periscapular, infraspinatus, posterior delt Mobilization Type Myofascial Release,Trigger Point Release Intensity/Depth Deep Body Position Prone Joint Mobilizations 2 Joint Shoulder Direction S-I Grade II Body Position Supine Reps/Duration x2 min 1 Joint Shoulder Direction A-P Grade II Body Position Supine Reps/Duration x2 min Comments A-P mob also used with manual ER, which increased range Manual Techniques Shoulder PROM Type External rotation Body Position Supine Comments 2 towel rolls under elbow PT-OP-T Assessment and Plan Start: 01/14/23 15:35 Freq: Status: Active Protocol: Document 02/14/23 09:48 AM (Rec: 02/14/23 10:49 AM [id number]) Physical Therapy Assessment Impairments Impairments Activity Tolerance,Functional Activities,Functional Mobility ,Pain,Posture,ROM,Soft Tissue Mobility,Strength Goals Five Impairment Quick Dash score Impairment Pt with 37% disability score on QuickDash outcome measure Food Broker Goal (LTG) Pt will demonstrate Quickdash score <15% disability. LTG Duration 6 weeks Four Impairment R shoulder PROM ER mobility Impairment Pt with limitations with R PROM ER, demonstrating 20 degrees at 45 deg of abduction Short Term Goal (STG) Pt able to demonstate 45 deg of shoulder ER at 45 deg PROM. GOAL MET on 02/05/23 at 60 deg STG Duration 3 weeks Food Broker Goal (LTG) Pt with R=L ER PROM. LTG Duration 02/26/23 Three Impairment Strength deficits Impairment Pt with difficulty with functional tasks secondary to R shoulder strength deficits at 4-/5 t0 4/5 Short Term Goal (STG) Pt able to demonstrate grossly 4+/5 R shoulder strength PROGRESSING TOWARDS GOAL: Pt with shoulder ROM 4-4+/5, though painful STG Duration 3 weeks Food Broker Goal (LTG) Pt able to demonstrate grossly 5/5 R shoudler strength LTG Duration 02/26/23 Two Impairment Sleep difficulty Impairment Pt with sleep disturbance secondary to pain. Assisted Goal (LTG) Pt reports that he is able to sleep without disturbance secondary to shoulder pain. LTG Duration 02/26/23 One Impairment Pain rating Impairment Pt reports pain at 7/10 at worst. Short Term Goal (STG) Pt to report pain at 4/10 at the worst. GOAL UNMET on 02/05/23. Pt reports pain has reached 9/10, which happened with sleep. STG Duration 3 weeks Food Broker Goal (LTG) Pt to report pain at 2/10 at the worst. LTG Duration 02/26/23 Assessment Summary Assessment Pt demonstrates continued good mobility at shoulder with improving tolerance to ER. Pt with lat stiffness with seated lat stretch. Pt demonstrates improving scapular mobility. Pt given updated HEP. Pt would benefit from continued PT to progress shoulder mobility and strength as tolerated to decrease pain and improve tolerance to functional tasks. Physical Therapy Plan Frequency and Duration Frequency of Treatment 2x/Week Duration of treatment (weeks) 6 Plan of Care Start Date 01/15/23 Plan of Care End Date 02/26/23 Therapeutic Interventions Therapeutic Interventions Home Exercise Program,Joint Mobilizations,Manual Therapy, Neuromuscular Re-education, Patient/Caregiver Education, Self-Care/Home Management,Soft Tissue Mobilization,Taping, Therapeutic Activities, Therapeutic Exercises Modalities Cold Pack/Ice Massage,Electric Stimulation,Hot Packs, Ultrasound Next Visit Focus/Plan Next Note Type Treatment Note Next Visit Plan foam roller, continue to progress scapular strenthening
--- NOTE | 2023-02-19 09:50 | PT.OTN ---
Current Diagnoses Primary osteoarthritis, right shoulder (02/19/23) Calcific tendinitis of right shoulder (02/19/23) Impingement syndrome of right shoulder (02/19/23) Physical Therapy Treatment Note PT-OP-A Visit Information Start: 01/14/23 15:35 Freq: Status: Active Protocol: Document 02/19/23 09:50 AM (Rec: 02/19/23 12:31 AM [id number]) Out-Patient Physical Therapy Visit Information Visit Information Visit Type Treatment Note Visit Start Time 09:50 Visit Stop Time 10:35 Total Visit Minutes 45 Visit Number 8 PT-OP-B Current Condition Start: 01/14/23 15:35 Freq: Status: Active Protocol: Document 02/12/23 09:49 AM (Rec: 02/12/23 11:35 AM [id number]) Current Condition History of Current Condition Onset Date years Current Complaints Pt reports burning pain with sleep. Any use of R shoulder History of Current Condition Pt reports that pain started in the late 80s early 90s. Bench pressing incident when he was lifting 200#. Pt reports that he has always had difficulty putting his R hand behind his back Prior Treatments and Tests Pt had x-ray, no prior PT PT-OP-C Subjective Start: 01/14/23 15:35 Freq: Status: Active Protocol: Document 02/19/23 09:50 AM (Rec: 02/19/23 12:31 AM [id number]) OP-PT Subjective Patient Comments Patient Comments Pt reports that he feels that his shoulder mobility is improving with less pain. Sleep continues to be a challenge. PT-OP-J Posture/Palpation/Skin Start: 01/14/23 15:35 Freq: Status: Active Protocol: Document 01/15/23 10:31 AM (Rec: 01/15/23 12:09 AM [id number]) Posture Evaluation Position Standing Head/C-Spine Posture Forward Head Shoulder Posture (L) Rounded,(R) Rounded,(L) Forward,(R) Forward Palpation Assessment Location One Palpation Location R shoulder Palpation Findings Soft Tissue Tightness,Muscle Guarding,Tenderness Palpation Details Discomfort with palpation of anterior deltoid. Pt without pain with palpation of scapular musculature, though reports that it is often sore in that region. Pt with stiffness of pec minor bilaterally PT-OP-K Range of Motion Start: 01/14/23 15:35 Freq: Status: Active Protocol: Document 02/05/23 09:49 AM (Rec: 02/05/23 10:57 AM [id number]) Shoulder Goniometric Range of Motion Shoulder Right Passive External Rotation at 45 degrees 65 Abduction PT-OP-L Special Tests Start: 01/14/23 15:35 Freq: Status: Active Protocol: Document 01/15/23 10:31 AM (Rec: 01/15/23 12:09 AM [id number]) Special Tests Shoulder Special Tests Speed's Biceps Test Results Positive pain Richey Farrukh Impingement Test Results Positive R Empty Can Test Results positive R Elevation Impingement Test Results positive R PT-OP-M Strength Start: 01/14/23 15:35 Freq: Status: Active Protocol: Document 02/05/23 09:49 AM (Rec: 02/05/23 10:57 AM [id number]) Shoulder Strength Shoulder Manual Muscle Testing Right Flexion 4 Good Abduction (C5) 4 Good External Rotation 4 Good Internal Rotation 4+ Good+ PT-OP-Q Treatments Start: 01/14/23 15:35 Freq: Status: Active Protocol: Document 02/19/23 09:50 AM (Rec: 02/19/23 12:31 AM [id number]) Cardio Equipment Upper Body Ergometer (UBE) Duration (Minutes) 6 Seat Position 16 Other fwd/retro Therapeutic Exercises Prone Exercises Prone low trap Prone Exercise Name Prone low trap Side right Equipment Used 1# Reps/Minutes 2x12 Comments Then with bilateral UE With dowel in hands in prone 3 Prone Exercise Name Prone mid trap Side right Equipment Used 1# Reps/Minutes 2x12 2 Prone Exercise Name Prone shoulder row Side right Resistance 5 Reps/Minutes 2x15 1 Prone Exercise Name Prone shoulder extension Side right Resistance 5 Reps/Minutes 2x15 Sitting Exercises Lat pull down Sitting Exercise Name Seated lat pull down Resistance 40# Reps/Minutes 2x15 Seated lat stretch Sitting Exercise Name Dowel in hand, seated in rolling chair, elbows on table and scoot back Side bilateral Reps/Minutes x1 min seated row Equipment Used 40# Reps/Minutes 2x15 Standing Exercises Dowel abduction Standing Exercise Name AAROM dowel abduction Side right Equipment Used trekking pole Reps/Minutes x10 Manual Therapy Treatment Soft Tissue Mobilization 2 Body Location Pec muscles Mobilization Type Trigger Point Release Intensity/Depth Deep Body Position Supine 1 Body Location Periscapular, infraspinatus, posterior delt Mobilization Type Myofascial Release,Trigger Point Release Intensity/Depth Deep Body Position Prone Joint Mobilizations 2 Joint Shoulder Direction S-I Grade II Body Position Supine Reps/Duration x2 min 1 Joint Shoulder Direction A-P Grade II Body Position Supine Reps/Duration x2 min Comments A-P mob also used with manual ER, which increased range Manual Techniques Shoulder PROM Type External rotation Body Position Supine Comments 2 towel rolls under elbow PT-OP-T Assessment and Plan Start: 01/14/23 15:35 Freq: Status: Active Protocol: Document 02/19/23 09:50 AM (Rec: 02/19/23 12:31 AM [id number]) Physical Therapy Assessment Goals Five Impairment Quick Dash score Impairment Pt with 37% disability score on QuickDash outcome measure Mcc Goal (LTG) Pt will demonstrate Quickdash score <15% disability. LTG Duration 6 weeks Four Impairment R shoulder PROM ER mobility Impairment Pt with limitations with R PROM ER, demonstrating 20 degrees at 45 deg of abduction Short Term Goal (STG) Pt able to demonstate 45 deg of shoulder ER at 45 deg PROM. GOAL MET on 02/05/23 at 60 deg STG Duration 3 weeks Mcc Goal (LTG) Pt with R=L ER PROM. LTG Duration 02/26/23 Three Impairment Strength deficits Impairment Pt with difficulty with functional tasks secondary to R shoulder strength deficits at 4-/5 t0 4/5 Short Term Goal (STG) Pt able to demonstrate grossly 4+/5 R shoulder strength PROGRESSING TOWARDS GOAL: Pt with shoulder ROM 4-4+/5, though painful STG Duration 3 weeks Mcc Goal (LTG) Pt able to demonstrate grossly 5/5 R shoudler strength LTG Duration 02/26/23 Two Impairment Sleep difficulty Impairment Pt with sleep disturbance secondary to pain. Charge Auditor Goal (LTG) Pt reports that he is able to sleep without disturbance secondary to shoulder pain. LTG Duration 02/26/23 One Impairment Pain rating Impairment Pt reports pain at 7/10 at worst. Short Term Goal (STG) Pt to report pain at 4/10 at the worst. GOAL UNMET on 02/05/23. Pt reports pain has reached 9/10, which happened with sleep. STG Duration 3 weeks Charge Auditor Goal (LTG) Pt to report pain at 2/10 at the worst. LTG Duration 02/26/23 Assessment Summary Assessment Pt tolerated PRE well today. Pt demonstrates improving scapular control with prone exercises. Pt continues to demonstrate pain with shoulder abd AROM, though no pain with AAROM with dowel. Pt would benefit from continued PT to progress shoulder mobility and strength as tolerated to decrease pain with functional tasks. Physical Therapy Plan Frequency and Duration Frequency of Treatment 2x/Week Duration of treatment (weeks) 6 Plan of Care Start Date 01/15/23 Plan of Care End Date 02/26/23 Therapeutic Interventions Therapeutic Interventions Home Exercise Program,Joint Mobilizations,Manual Therapy, Neuromuscular Re-education, Patient/Caregiver Education, Self-Care/Home Management,Soft Tissue Mobilization,Taping, Therapeutic Activities, Therapeutic Exercises Modalities Cold Pack/Ice Massage,Electric Stimulation,Hot Packs, Ultrasound Next Visit Focus/Plan Next Note Type Treatment Note Next Visit Plan assess dowel abduction, add abd iso in sidelying
--- NOTE | 2023-02-21 09:47 | PT.OTN ---
Current Diagnoses Primary osteoarthritis, right shoulder (02/21/23) Calcific tendinitis of right shoulder (02/21/23) Impingement syndrome of right shoulder (02/21/23) Physical Therapy Treatment Note PT-OP-A Visit Information Start: 01/14/23 15:35 Freq: Status: Active Protocol: Document 02/21/23 09:47 AM (Rec: 02/21/23 09:55 AM [id number]) Out-Patient Physical Therapy Visit Information Visit Information Visit Type Treatment Note Visit Start Time 09:47 Visit Stop Time 10:36 Total Visit Minutes 49 Visit Number 9 Number of RECREATIONAL DIRECTOR Visits 0 PT-OP-B Current Condition Start: 01/14/23 15:35 Freq: Status: Active Protocol: Document 02/12/23 09:49 AM (Rec: 02/12/23 11:35 AM [id number]) Current Condition History of Current Condition Onset Date years Current Complaints Pt reports burning pain with sleep. Any use of R shoulder History of Current Condition Pt reports that pain started in the late 80s early 90s. Bench pressing incident when he was lifting 200#. Pt reports that he has always had difficulty putting his R hand behind his back Prior Treatments and Tests Pt had x-ray, no prior PT PT-OP-C Subjective Start: 01/14/23 15:35 Freq: Status: Active Protocol: Document 02/21/23 09:47 AM (Rec: 02/21/23 09:55 AM [id number]) OP-PT Subjective Patient Comments Patient Comments Pt reports sleep is improving. Pt feels that his ROM is improving. PT-OP-J Posture/Palpation/Skin Start: 01/14/23 15:35 Freq: Status: Active Protocol: Document 01/15/23 10:31 AM (Rec: 01/15/23 12:09 AM [id number]) Posture Evaluation Position Standing Head/C-Spine Posture Forward Head Shoulder Posture (L) Rounded,(R) Rounded,(L) Forward,(R) Forward Palpation Assessment Location One Palpation Location R shoulder Palpation Findings Soft Tissue Tightness,Muscle Guarding,Tenderness Palpation Details Discomfort with palpation of anterior deltoid. Pt without pain with palpation of scapular musculature, though reports that it is often sore in that region. Pt with stiffness of pec minor bilaterally PT-OP-K Range of Motion Start: 01/14/23 15:35 Freq: Status: Active Protocol: Document 02/21/23 09:47 AM (Rec: 02/21/23 09:58 AM [id number]) Shoulder Goniometric Range of Motion Shoulder Right Active Shoulder ROM WFL Yes Testing Position Standing Flexion 149 Abduction 142 Internal Rotation Behind Back (text) T5 Comments L1 PT-OP-L Special Tests Start: 01/14/23 15:35 Freq: Status: Active Protocol: Document 01/15/23 10:31 AM (Rec: 01/15/23 12:09 AM [id number]) Special Tests Shoulder Special Tests Speed's Biceps Test Results Positive pain Richey Farrukh Impingement Test Results Positive R Empty Can Test Results positive R Elevation Impingement Test Results positive R PT-OP-M Strength Start: 01/14/23 15:35 Freq: Status: Active Protocol: Document 02/05/23 09:49 AM (Rec: 02/05/23 10:57 AM [id number]) Shoulder Strength Shoulder Manual Muscle Testing Right Flexion 4 Good Abduction (C5) 4 Good External Rotation 4 Good Internal Rotation 4+ Good+ PT-OP-Q Treatments Start: 01/14/23 15:35 Freq: Status: Active Protocol: Document 02/21/23 09:47 AM (Rec: 02/21/23 09:58 AM [id number]) Cardio Equipment Upper Body Ergometer (UBE) Duration (Minutes) 6 Seat Position 16 Other fwd/retro Therapeutic Exercises Prone Exercises Prone low trap Prone Exercise Name Prone low trap Side right Equipment Used 1# Reps/Minutes 2x12 Comments Then with bilateral UE With dowel in hands in prone 3 Prone Exercise Name Prone mid trap Side right Equipment Used 1# Reps/Minutes 2x12 2 Prone Exercise Name Prone shoulder row Side right Resistance 5 Reps/Minutes 3x15 1 Prone Exercise Name Prone shoulder extension Side right Resistance 5 Reps/Minutes 2x15 Sidelying Exercises Abduction iso Sidelying Exercise Name Rhythmic stabilization in abd Reps/Minutes 2x1 min Sitting Exercises Lat pull down Sitting Exercise Name Seated lat pull down Resistance 40# Reps/Minutes 3x15 seated row Equipment Used 40# Reps/Minutes 3x15 Standing Exercises Standing flexion Standing Exercise Name Standing shoulder flexion Resistance 1# Reps/Minutes 2x10 Standing scaption Standing Exercise Name Standing shoulder scaption Side bilateral Resistance 1# Reps/Minutes 2x10 Dowel abduction Standing Exercise Name AAROM dowel abduction Side right Equipment Used [employer] pole Reps/Minutes x10 4 Standing Exercise Name shoulder IR Resistance BTB 2 Standing Exercise Name Shoulder ER Resistance GTB PT-OP-T Assessment and Plan Start: 01/14/23 15:35 Freq: Status: Active Protocol: Document 02/21/23 09:47 AM (Rec: 02/21/23 09:55 AM [id number]) Physical Therapy Assessment Impairments Impairments Activity Tolerance,Functional Activities,Functional Mobility ,Pain,Posture,ROM,Soft Tissue Mobility,Strength Goals Five Impairment Quick Dash score Impairment Pt with 37% disability score on QuickDash outcome measure Retirement Goal (LTG) Pt will demonstrate Quickdash score <15% disability. LTG Duration 6 weeks Four Impairment R shoulder PROM ER mobility Impairment Pt with limitations with R PROM ER, demonstrating 20 degrees at 45 deg of abduction Short Term Goal (STG) Pt able to demonstate 45 deg of shoulder ER at 45 deg PROM. GOAL MET on 02/05/23 at 60 deg STG Duration 3 weeks System Administrator Goal (LTG) Pt with R=L ER PROM. LTG Duration 02/26/23 Three Impairment Strength deficits Impairment Pt with difficulty with functional tasks secondary to R shoulder strength deficits at 4-/5 t0 4/5 Short Term Goal (STG) Pt able to demonstrate grossly 4+/5 R shoulder strength PROGRESSING TOWARDS GOAL: Pt with shoulder ROM 4-4+/5, though painful STG Duration 3 weeks System Administrator Goal (LTG) Pt able to demonstrate grossly 5/5 R shoudler strength LTG Duration 02/26/23 Two Impairment Sleep difficulty Impairment Pt with sleep disturbance secondary to pain. System Administrator Goal (LTG) Pt reports that he is able to sleep without disturbance secondary to shoulder pain. LTG Duration 02/26/23 One Impairment Pain rating Impairment Pt reports pain at 7/10 at worst. Short Term Goal (STG) Pt to report pain at 4/10 at the worst. GOAL UNMET on 02/05/23. Pt reports pain has reached 9/10, which happened with sleep. STG Duration 3 weeks Retirement Goal (LTG) Pt to report pain at 2/10 at the worst. LTG Duration 02/26/23 Assessment Summary Assessment Pt demonstrates good tolerance to PRE. Pt demonstrates improving shoulder AROM since IE. Pt able to tolerate weight resisted scaption without production of symptoms, though demonstrates impingement symptoms with abduction. Pt would benefit from continue PT to progress shoulder mobility and strength for improve tolerance to functional tasks. Physical Therapy Plan Frequency and Duration Frequency of Treatment 2x/Week Duration of treatment (weeks) 6 Plan of Care Start Date 01/15/23 Plan of Care End Date 02/26/23 Therapeutic Interventions Therapeutic Interventions Home Exercise Program,Joint Mobilizations,Manual Therapy, Neuromuscular Re-education, Patient/Caregiver Education, Self-Care/Home Management,Soft Tissue Mobilization,Taping, Therapeutic Activities, Therapeutic Exercises Modalities Cold Pack/Ice Massage,Electric Stimulation,Hot Packs, Ultrasound Next Visit Focus/Plan Next Note Type Treatment Note Next Visit Plan assess dowel abduction, add abd iso in sidelying
--- NOTE | 2023-02-26 09:49 | PT.OTN ---
Current Diagnoses Primary osteoarthritis, right shoulder (02/26/23) Calcific tendinitis of right shoulder (02/26/23) Impingement syndrome of right shoulder (02/26/23) Physical Therapy Treatment Note PT-OP-A Visit Information Start: 01/14/23 15:35 Freq: Status: Active Protocol: Document 02/26/23 09:49 AM (Rec: 02/26/23 12:03 AM [id number]) Out-Patient Physical Therapy Visit Information Visit Information Visit Type Treatment Note Visit Start Time 09:49 Visit Stop Time 10:34 Total Visit Minutes 45 Visit Number 10 Number of STARCH COOKER Visits 0 PT-OP-B Current Condition Start: 01/14/23 15:35 Freq: Status: Active Protocol: Document 02/12/23 09:49 AM (Rec: 02/12/23 11:35 AM [id number]) Current Condition History of Current Condition Onset Date years Current Complaints Pt reports burning pain with sleep. Any use of R shoulder History of Current Condition Pt reports that pain started in the late 80s early 90s. Bench pressing incident when he was lifting 200#. Pt reports that he has always had difficulty putting his R hand behind his back Prior Treatments and Tests Pt had x-ray, no prior PT PT-OP-C Subjective Start: 01/14/23 15:35 Freq: Status: Active Protocol: Document 02/26/23 09:49 AM (Rec: 02/26/23 12:03 AM [id number]) OP-PT Subjective Patient Comments Patient Comments Pt reports improving ROM. Pt reports that he has not had the sharp pain in a few weeks. PT-OP-J Posture/Palpation/Skin Start: 01/14/23 15:35 Freq: Status: Active Protocol: Document 01/15/23 10:31 AM (Rec: 01/15/23 12:09 AM [id number]) Posture Evaluation Position Standing Head/C-Spine Posture Forward Head Shoulder Posture (L) Rounded,(R) Rounded,(L) Forward,(R) Forward Palpation Assessment Location One Palpation Location R shoulder Palpation Findings Soft Tissue Tightness,Muscle Guarding,Tenderness Palpation Details Discomfort with palpation of anterior deltoid. Pt without pain with palpation of scapular musculature, though reports that it is often sore in that region. Pt with stiffness of pec minor bilaterally PT-OP-K Range of Motion Start: 01/14/23 15:35 Freq: Status: Active Protocol: Document 02/21/23 09:47 AM (Rec: 02/21/23 09:58 AM [id number]) Shoulder Goniometric Range of Motion Shoulder Right Active Shoulder ROM WFL Yes Testing Position Standing Flexion 149 Abduction 142 Internal Rotation Behind Back (text) T5 Comments L1 PT-OP-L Special Tests Start: 01/14/23 15:35 Freq: Status: Active Protocol: Document 01/15/23 10:31 AM (Rec: 01/15/23 12:09 AM [id number]) Special Tests Shoulder Special Tests Speed's Biceps Test Results Positive pain Richey Farrukh Impingement Test Results Positive R Empty Can Test Results positive R Elevation Impingement Test Results positive R PT-OP-M Strength Start: 01/14/23 15:35 Freq: Status: Active Protocol: Document 02/05/23 09:49 AM (Rec: 02/05/23 10:57 AM [id number]) Shoulder Strength Shoulder Manual Muscle Testing Right Flexion 4 Good Abduction (C5) 4 Good External Rotation 4 Good Internal Rotation 4+ Good+ PT-OP-Q Treatments Start: 01/14/23 15:35 Freq: Status: Active Protocol: Document 02/26/23 09:49 AM (Rec: 02/26/23 12:03 AM [id number]) Cardio Equipment Upper Body Ergometer (UBE) Duration (Minutes) 6 Seat Position 16 Other fwd/retro Therapeutic Exercises Prone Exercises Prone low trap Prone Exercise Name Prone low trap Side right Equipment Used 1# Reps/Minutes 2x15 3 Prone Exercise Name Prone mid trap Side right Equipment Used 1# Reps/Minutes 2x15 2 Prone Exercise Name Prone shoulder row Side right Resistance 5 Reps/Minutes 3x15 1 Prone Exercise Name Prone shoulder extension Side right Resistance 5 Reps/Minutes 3x15 Sidelying Exercises Abduction iso Sidelying Exercise Name Rhythmic stabilization in abd Equipment Used 1# Reps/Minutes 2x1 min Sitting Exercises Lat pull down Sitting Exercise Name Seated lat pull down Resistance 40# Reps/Minutes 3x15 seated row Equipment Used 40# Reps/Minutes 3x15 Standing Exercises Shoulder press Standing Exercise Name Shoulder press Side bilateral Resistance 1# Reps/Minutes 3x10 Standing flexion Standing Exercise Name Standing shoulder flexion Resistance 1# Reps/Minutes 3x10 Standing scaption Standing Exercise Name Standing shoulder scaption Side bilateral Resistance 1# Reps/Minutes 3x10 Manual Therapy Treatment Soft Tissue Mobilization 2 Body Location Pec muscles Mobilization Type Trigger Point Release Intensity/Depth Deep Body Position Supine Joint Mobilizations 2 Joint Shoulder Direction S-I Grade II Body Position Supine Reps/Duration x2 min 1 Joint Shoulder Direction A-P Grade II Body Position Supine Reps/Duration x2 min Comments A-P mob also used with manual ER, which increased range Manual Techniques Shoulder PROM Type External rotation Body Position Supine Comments 2 towel rolls under elbow PT-OP-T Assessment and Plan Start: 01/14/23 15:35 Freq: Status: Active Protocol: Document 02/26/23 09:49 AM (Rec: 02/26/23 12:03 AM [id number]) Physical Therapy Assessment Goals Five Impairment Quick Dash score Impairment Pt with 37% disability score on QuickDash outcome measure Social Media Marketing Manager Goal (LTG) Pt will demonstrate Quickdash score <15% disability. LTG Duration 6 weeks Four Impairment R shoulder PROM ER mobility Impairment Pt with limitations with R PROM ER, demonstrating 20 degrees at 45 deg of abduction Short Term Goal (STG) Pt able to demonstate 45 deg of shoulder ER at 45 deg PROM. GOAL MET on 02/05/23 at 60 deg STG Duration 3 weeks Snf Goal (LTG) Pt with R=L ER PROM. LTG Duration 02/26/23 Three Impairment Strength deficits Impairment Pt with difficulty with functional tasks secondary to R shoulder strength deficits at 4-/5 t0 4/5 Short Term Goal (STG) Pt able to demonstrate grossly 4+/5 R shoulder strength PROGRESSING TOWARDS GOAL: Pt with shoulder ROM 4-4+/5, though painful STG Duration 3 weeks Snf Goal (LTG) Pt able to demonstrate grossly 5/5 R shoudler strength LTG Duration 02/26/23 Two Impairment Sleep difficulty Impairment Pt with sleep disturbance secondary to pain. Social Media Marketing Manager Goal (LTG) Pt reports that he is able to sleep without disturbance secondary to shoulder pain. LTG Duration 02/26/23 One Impairment Pain rating Impairment Pt reports pain at 7/10 at worst. Short Term Goal (STG) Pt to report pain at 4/10 at the worst. GOAL UNMET on 02/05/23. Pt reports pain has reached 9/10, which happened with sleep. STG Duration 3 weeks Social Media Marketing Manager Goal (LTG) Pt to report pain at 2/10 at the worst. LTG Duration 02/26/23 Assessment Summary Assessment Pt with good tolerance to PRE. Pt without reports of increased pain during tx session today. Pt demonstrates improving scapular mobility and strength with prone exercises. Pt with increasing tolerance to shoulder ER mobility. Pt will return to PT next week to continue to progress strength and mobility as tolerated. Physical Therapy Plan Frequency and Duration Frequency of Treatment 2x/Week Duration of treatment (weeks) 6 Plan of Care Start Date 01/15/23 Plan of Care End Date 02/26/23 Therapeutic Interventions Therapeutic Interventions Home Exercise Program,Joint Mobilizations,Manual Therapy, Neuromuscular Re-education, Patient/Caregiver Education, Self-Care/Home Management,Soft Tissue Mobilization,Taping, Therapeutic Activities, Therapeutic Exercises Modalities Cold Pack/Ice Massage,Electric Stimulation,Hot Packs, Ultrasound Next Visit Focus/Plan Next Note Type Treatment Note Next Visit Plan Cont to progress scapular strength, rotator cuff strength and ROM as tolerated
--- NOTE | 2023-03-05 09:52 | PT.OPPOC ---
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 Primary Care Provider Specialty: Medical Address: [address] [place] [address], [id number] Email: [email or web address] Rentals Gina Slo PA-C Attending Provider Non-Staff Referring Provider Specialty: Medical Address: [address] [place] [address], [phone] Email: Plan Of Care PT-OP-T Assessment and Plan Start: 01/14/23 15:35 Freq: Status: Active Protocol: Document 03/05/23 09:52 AM (Rec: 03/05/23 12:58 AM [id number]) Physical Therapy Assessment Goals Five Impairment Quick Dash score Impairment Pt with 37% disability score on QuickDash outcome measure Credit Processor Goal (LTG) Pt will demonstrate Quickdash score <15% disability. Goal unmet on 03/05/23: 36% LTG Duration 03/27/23 Four Impairment R shoulder PROM ER mobility Impairment Pt with limitations with R PROM ER, demonstrating 20 degrees at 45 deg of abduction Short Term Goal (STG) Pt able to demonstate 45 deg of shoulder ER at 45 deg PROM. GOAL MET on 02/05/23 at 60 deg STG Duration 3 weeks Usp Goal (LTG) Pt with R=L ER PROM. Goal met on 03/05/23 LTG Duration 02/26/23-achieved Three Impairment Strength deficits Impairment Pt with difficulty with functional tasks secondary to R shoulder strength deficits at 4-/5 t0 4/5 Short Term Goal (STG) Pt able to demonstrate grossly 4+/5 R shoulder strength PROGRESSING TOWARDS GOAL: Pt with strength 4-4+/5, though painful STG Duration 3 weeks Credit Processor Goal (LTG) Pt able to demonstrate grossly 5/5 R shoudler strength Progressing towards goal: Pt with 4-4+/5 on 03/05/23 LTG Duration 03/27/23 Two Impairment Sleep difficulty Impairment Pt with sleep disturbance secondary to pain. Credit Processor Goal (LTG) Pt reports that he is able to sleep without disturbance secondary to shoulder pain. Progressing towards goal 03/05: Pt reports decreasing pain with sleep, though continues to occur at times. LTG Duration 03/27/23 One Impairment Pain rating Impairment Pt reports pain at 7/10 at worst. Short Term Goal (STG) Pt to report pain at 4/10 at the worst. GOAL UNMET on 02/05/23. Pt reports pain has reached 9/10, which happened with sleep. STG Duration 3 weeks Usp Goal (LTG) Pt to report pain at 2/10 at the worst. Goal unmet on 03/05/23. LTG Duration 03/27/23 Assessment Summary Assessment Pt with good tolerance to PRE. Pt demonstrates crepitus with shoulder abduction with decreasing with manual S-I glide. Pt demonstrates improving tolerante to shoulder AROM ER. Pt with improving scapular control though benefits from manual scapular assist with prone exercises. Pt's POC extended today, following recommendations from updated physician's referral. Pt would benefit from continued PT to progress strength and mobility at shoulder to decrease pain with functional tasks. Physical Therapy Plan Frequency and Duration Frequency of Treatment 2x/Week Duration of treatment (weeks) 11 Plan of Care Start Date 01/15/23 Plan of Care End Date 03/27/23 Therapeutic Interventions Therapeutic Interventions Home Exercise Program,Joint Mobilizations,Manual Therapy, Neuromuscular Re-education, Patient/Caregiver Education, Self-Care/Home Management,Soft Tissue Mobilization,Taping, Therapeutic Activities, Therapeutic Exercises Modalities Cold Pack/Ice Massage,Electric Stimulation,Hot Packs, Ultrasound Next Visit Focus/Plan Next Note Type Treatment Note Next Visit Plan Cont to progress scapular strength, rotator cuff strength and ROM as tolerated Plan of Care Dates Plan of Care Start Date 01/15/23 Plan of Care End Date 03/27/23 Electronically Signed by: Karissa Head, PT 03/05/23 [id number] If you are in agreement with this Plan of Care, please return a signed and dated copy. I have reviewed this Plan of Care and certify that the skilled therapy services above are required to meet the patient?s needs. Physician Signature Date Printed Name and Credentials Clinical Instructor Signature Printed Name and Credentials
--- NOTE | 2023-03-05 09:52 | PT.OTN ---
Current Diagnoses Primary osteoarthritis, right shoulder (03/05/23) Calcific tendinitis of right shoulder (03/05/23) Impingement syndrome of right shoulder (03/05/23) Physical Therapy Treatment Note PT-OP-A Visit Information Start: 01/14/23 15:35 Freq: Status: Active Protocol: Document 03/05/23 09:52 AM (Rec: 03/05/23 12:58 AM [id number]) Out-Patient Physical Therapy Visit Information Visit Information Visit Type Treatment Note Visit Start Time 09:52 Visit Stop Time 10:35 Total Visit Minutes 43 Visit Number 11 Number of PROCESS CONTROL BOARD OPERATOR Visits 0 PT-OP-B Current Condition Start: 01/14/23 15:35 Freq: Status: Active Protocol: Document 02/12/23 09:49 AM (Rec: 02/12/23 11:35 AM [id number]) Current Condition History of Current Condition Onset Date years Current Complaints Pt reports burning pain with sleep. Any use of R shoulder History of Current Condition Pt reports that pain started in the late 80s early 90s. Bench pressing incident when he was lifting 200#. Pt reports that he has always had difficulty putting his R hand behind his back Prior Treatments and Tests Pt had x-ray, no prior PT PT-OP-C Subjective Start: 01/14/23 15:35 Freq: Status: Active Protocol: Document 03/05/23 09:52 AM (Rec: 03/05/23 12:58 AM [id number]) OP-PT Subjective Patient Comments Patient Comments Pt reports that his shoulder has been burning. Pt reports this symptom started on Friday. He is unsure why. Possibly from sleep or driving . PT-OP-J Posture/Palpation/Skin Start: 01/14/23 15:35 Freq: Status: Active Protocol: Document 01/15/23 10:31 AM (Rec: 01/15/23 12:09 AM [id number]) Posture Evaluation Position Standing Head/C-Spine Posture Forward Head Shoulder Posture (L) Rounded,(R) Rounded,(L) Forward,(R) Forward Palpation Assessment Location One Palpation Location R shoulder Palpation Findings Soft Tissue Tightness,Muscle Guarding,Tenderness Palpation Details Discomfort with palpation of anterior deltoid. Pt without pain with palpation of scapular musculature, though reports that it is often sore in that region. Pt with stiffness of pec minor bilaterally PT-OP-K Range of Motion Start: 08/22/23 15:35 Freq: Status: Active Protocol: Document 02/21/23 09:47 AM (Rec: 02/21/23 09:58 AM [id number]) Shoulder Goniometric Range of Motion Shoulder Right Active Shoulder ROM WFL Yes Testing Position Standing Flexion 149 Abduction 142 Internal Rotation Behind Back (text) T5 Comments L1 PT-OP-L Special Tests Start: 01/14/23 15:35 Freq: Status: Active Protocol: Document 01/15/23 10:31 AM (Rec: 01/15/23 12:09 AM [id number]) Special Tests Shoulder Special Tests Speed's Biceps Test Results Positive pain Richey Farrukh Impingement Test Results Positive R Empty Can Test Results positive R Elevation Impingement Test Results positive R PT-OP-M Strength Start: 01/14/23 15:35 Freq: Status: Active Protocol: Document 02/05/23 09:49 AM (Rec: 02/05/23 10:57 AM [id number]) Shoulder Strength Shoulder Manual Muscle Testing Right Flexion 4 Good Abduction (C5) 4 Good External Rotation 4 Good Internal Rotation 4+ Good+ PT-OP-Q Treatments Start: 01/14/23 15:35 Freq: Status: Active Protocol: Document 03/05/23 09:52 AM (Rec: 03/05/23 12:58 AM [id number]) Cardio Equipment Upper Body Ergometer (UBE) Duration (Minutes) 6 Other fwd/retro Therapeutic Exercises Prone Exercises Prone low trap Prone Exercise Name Prone low trap Side right Equipment Used 1# Reps/Minutes 2x15 3 Prone Exercise Name Prone mid trap Side right Equipment Used 1# Reps/Minutes 2x15 2 Prone Exercise Name Prone shoulder row Side right Resistance 7 Reps/Minutes 2x10 1 Prone Exercise Name Prone shoulder extension Side right Resistance 7 Reps/Minutes 2x10 Sidelying Exercises Abduction iso Sidelying Exercise Name Rhythmic stabilization in abd Equipment Used 1# Reps/Minutes 2x1 min 3 Sidelying Exercise Name Shoulder flexion Reps/Minutes 2x10 Comments Manual scapular assist for upward rotation 2 Sidelying Exercise Name Sidelying abd Reps/Minutes 2x10 Comments Manual MWM for inferior glide 1 Sidelying Exercise Name Shoulder ER Resistance 1# Reps/Minutes 2x10 Comments Pt reported difficulty to reach end ranges secondary to strength Standing Exercises Shoulder press Standing Exercise Name Shoulder press Side bilateral Resistance 2# Reps/Minutes 2x10 Standing flexion Standing Exercise Name Standing shoulder flexion Resistance 2# Reps/Minutes 3x10 Standing scaption Standing Exercise Name Standing shoulder scaption Side bilateral Resistance 2# Reps/Minutes 3x10 Dowel abduction Standing Exercise Name AAROM dowel abduction Side right Equipment Used trekking pole Reps/Minutes x10 Manual Therapy Treatment Joint Mobilizations 2 Joint Shoulder Direction S-I Grade II Body Position Supine Reps/Duration x2 min 1 Joint Shoulder Direction A-P Grade II Body Position Supine Reps/Duration x2 min Comments A-P mob also used with manual ER, which increased range Manual Techniques Shoulder PROM Type External rotation and abudction Body Position Supine Comments 2 towel rolls under elbow PT-OP-T Assessment and Plan Start: 01/14/23 15:35 Freq: Status: Active Protocol: Document 03/05/23 09:52 AM (Rec: 03/05/23 12:58 AM [id number]) Physical Therapy Assessment Goals Five Impairment Quick Dash score Impairment Pt with 37% disability score on QuickDash outcome measure Director Treasurer Goal (LTG) Pt will demonstrate Quickdash score <15% disability. Goal unmet on 03/05/23: 36% LTG Duration 03/27/23 Four Impairment R shoulder PROM ER mobility Impairment Pt with limitations with R PROM ER, demonstrating 20 degrees at 45 deg of abduction Short Term Goal (STG) Pt able to demonstate 45 deg of shoulder ER at 45 deg PROM. GOAL MET on 02/05/23 at 60 deg STG Duration 3 weeks Alf Goal (LTG) Pt with R=L ER PROM. Goal met on 03/05/23 LTG Duration 02/26/23-achieved Three Impairment Strength deficits Impairment Pt with difficulty with functional tasks secondary to R shoulder strength deficits at 4-/5 t0 4/5 Short Term Goal (STG) Pt able to demonstrate grossly 4+/5 R shoulder strength PROGRESSING TOWARDS GOAL: Pt with strength 4-4+/5, though painful STG Duration 3 weeks Alf Goal (LTG) Pt able to demonstrate grossly 5/5 R shoudler strength Progressing towards goal: Pt with 4-4+/5 on 03/05/23 LTG Duration 03/27/23 Two Impairment Sleep difficulty Impairment Pt with sleep disturbance secondary to pain. Director Treasurer Goal (LTG) Pt reports that he is able to sleep without disturbance secondary to shoulder pain. Progressing towards goal 03/05: Pt reports decreasing pain with sleep, though continues to occur at times. LTG Duration 03/27/23 One Impairment Pain rating Impairment Pt reports pain at 7/10 at worst. Short Term Goal (STG) Pt to report pain at 4/10 at the worst. GOAL UNMET on 02/05/23. Pt reports pain has reached 9/10, which happened with sleep. STG Duration 3 weeks Director Treasurer Goal (LTG) Pt to report pain at 2/10 at the worst. Goal unmet on 03/05/23. LTG Duration 03/27/23 Assessment Summary Assessment Pt with good tolerance to PRE. Pt demonstrates crepitus with shoulder abduction with decreasing with manual S-I glide. Pt demonstrates improving tolerante to shoulder AROM ER. Pt with improving scapular control though benefits from manual scapular assist with prone exercises. Pt's POC extended today, following recommendations from updated physician's referral. Pt would benefit from continued PT to progress strength and mobility at shoulder to decrease pain with functional tasks. Physical Therapy Plan Frequency and Duration Frequency of Treatment 2x/Week Duration of treatment (weeks) 11 Plan of Care Start Date 01/15/23 Plan of Care End Date 03/27/23 Therapeutic Interventions Therapeutic Interventions Home Exercise Program,Joint Mobilizations,Manual Therapy, Neuromuscular Re-education, Patient/Caregiver Education, Self-Care/Home Management,Soft Tissue Mobilization,Taping, Therapeutic Activities, Therapeutic Exercises Modalities Cold Pack/Ice Massage,Electric Stimulation,Hot Packs, Ultrasound Next Visit Focus/Plan Next Note Type Treatment Note Next Visit Plan Cont to progress scapular strength, rotator cuff strength and ROM as tolerated
--- NOTE | 2023-03-07 09:49 | PT.OTN ---
Current Diagnoses Primary osteoarthritis, right shoulder (03/07/23) Calcific tendinitis of right shoulder (03/07/23) Impingement syndrome of right shoulder (03/07/23) Physical Therapy Treatment Note PT-OP-A Visit Information Start: 01/14/23 15:35 Freq: Status: Active Protocol: Document 03/07/23 09:49 AM (Rec: 03/07/23 12:44 AM [id number]) Out-Patient Physical Therapy Visit Information Visit Information Visit Type Treatment Note Visit Start Time 09:49 Visit Stop Time 10:34 Total Visit Minutes 45 Visit Number 12 PT-OP-B Current Condition Start: 01/14/23 15:35 Freq: Status: Active Protocol: Document 02/12/23 09:49 AM (Rec: 02/12/23 11:35 AM [id number]) Current Condition History of Current Condition Onset Date years Current Complaints Pt reports burning pain with sleep. Any use of R shoulder History of Current Condition Pt reports that pain started in the late 80s early 90s. Bench pressing incident when he was lifting 200#. Pt reports that he has always had difficulty putting his R hand behind his back Prior Treatments and Tests Pt had x-ray, no prior PT PT-OP-C Subjective Start: 01/14/23 15:35 Freq: Status: Active Protocol: Document 03/07/23 09:49 AM (Rec: 03/07/23 12:44 AM [id number]) OP-PT Subjective Patient Comments Patient Comments Pt reports that the burning subsided after last session. Pt reports that ROM has improved and pain is decreased overall. PT-OP-J Posture/Palpation/Skin Start: 01/14/23 15:35 Freq: Status: Active Protocol: Document 01/15/23 10:31 AM (Rec: 01/15/23 12:09 AM [id number]) Posture Evaluation Position Standing Head/C-Spine Posture Forward Head Shoulder Posture (L) Rounded,(R) Rounded,(L) Forward,(R) Forward Palpation Assessment Location One Palpation Location R shoulder Palpation Findings Soft Tissue Tightness,Muscle Guarding,Tenderness Palpation Details Discomfort with palpation of anterior deltoid. Pt without pain with palpation of scapular musculature, though reports that it is often sore in that region. Pt with stiffness of pec minor bilaterally PT-OP-K Range of Motion Start: 01/14/23 15:35 Freq: Status: Active Protocol: Document 02/21/23 09:47 AM (Rec: 02/21/23 09:58 AM [id number]) Shoulder Goniometric Range of Motion Shoulder Right Active Shoulder ROM WFL Yes Testing Position Standing Flexion 149 Abduction 142 Internal Rotation Behind Back (text) T5 Comments L1 PT-OP-L Special Tests Start: 01/14/23 15:35 Freq: Status: Active Protocol: Document 01/15/23 10:31 AM (Rec: 01/15/23 12:09 AM [id number]) Special Tests Shoulder Special Tests Speed's Biceps Test Results Positive pain Richey Farrukh Impingement Test Results Positive R Empty Can Test Results positive R Elevation Impingement Test Results positive R PT-OP-M Strength Start: 01/14/23 15:35 Freq: Status: Active Protocol: Document 02/05/23 09:49 AM (Rec: 02/05/23 10:57 AM [id number]) Shoulder Strength Shoulder Manual Muscle Testing Right Flexion 4 Good Abduction (C5) 4 Good External Rotation 4 Good Internal Rotation 4+ Good+ PT-OP-Q Treatments Start: 01/14/23 15:35 Freq: Status: Active Protocol: Document 03/07/23 09:49 AM (Rec: 03/07/23 12:44 AM [id number]) Cardio Equipment Upper Body Ergometer (UBE) Duration (Minutes) 6 Other fwd/back Therapeutic Exercises Prone Exercises Prone low trap Prone Exercise Name Prone low trap Side right Equipment Used 2 Reps/Minutes 2x15 3 Prone Exercise Name Prone mid trap Side right Equipment Used 2 Reps/Minutes 2x15 2 Prone Exercise Name Prone shoulder row Side right Resistance 7 Reps/Minutes 2x10 1 Prone Exercise Name Prone shoulder extension Side right Resistance 7 Reps/Minutes 2x10 Sidelying Exercises Abduction iso Sidelying Exercise Name Rhythmic stabilization in abd Equipment Used 2 Reps/Minutes 2x1 min 2 Sidelying Exercise Name Sidelying abd Reps/Minutes x10 Comments Manual MWM for inferior glide 1 Sidelying Exercise Name Shoulder ER Resistance 0 Reps/Minutes 2x10 Comments Manual cueing for scapular stabilization Sitting Exercises Lat pull down Sitting Exercise Name Seated lat pull down Resistance 40# Reps/Minutes 3x10 seated row Equipment Used 40# Reps/Minutes 3x10 Standing Exercises 4 Standing Exercise Name Shoulder IR Resistance BTB Reps/Minutes 3x10 2 Standing Exercise Name Shoulder ER Side right Resistance GTB PT-OP-T Assessment and Plan Start: 01/14/23 15:35 Freq: Status: Active Protocol: Document 03/07/23 09:49 AM (Rec: 03/07/23 12:44 AM [id number]) Physical Therapy Assessment Goals Five Impairment Quick Dash score Impairment Pt with 37% disability score on QuickDash outcome measure Electrical Continuity Inspector Goal (LTG) Pt will demonstrate Quickdash score <15% disability. Goal unmet on 03/05/23: 36% LTG Duration 03/27/23 Four Impairment R shoulder PROM ER mobility Impairment Pt with limitations with R PROM ER, demonstrating 20 degrees at 45 deg of abduction Short Term Goal (STG) Pt able to demonstate 45 deg of shoulder ER at 45 deg PROM. GOAL MET on 02/05/23 at 60 deg STG Duration 3 weeks Custodial Goal (LTG) Pt with R=L ER PROM. Goal met on 03/05/23 LTG Duration 02/26/23-achieved Three Impairment Strength deficits Impairment Pt with difficulty with functional tasks secondary to R shoulder strength deficits at 4-/5 t0 4/5 Short Term Goal (STG) Pt able to demonstrate grossly 4+/5 R shoulder strength PROGRESSING TOWARDS GOAL: Pt with strength 4-4+/5, though painful STG Duration 3 weeks Electrical Continuity Inspector Goal (LTG) Pt able to demonstrate grossly 5/5 R shoudler strength Progressing towards goal: Pt with 4-4+/5 on 03/05/23 LTG Duration 03/27/23 Two Impairment Sleep difficulty Impairment Pt with sleep disturbance secondary to pain. Custodial Goal (LTG) Pt reports that he is able to sleep without disturbance secondary to shoulder pain. Progressing towards goal 03/05: Pt reports decreasing pain with sleep, though continues to occur at times. LTG Duration 03/27/23 One Impairment Pain rating Impairment Pt reports pain at 7/10 at worst. Short Term Goal (STG) Pt to report pain at 4/10 at the worst. GOAL UNMET on 02/05/23. Pt reports pain has reached 9/10, which happened with sleep. STG Duration 3 weeks Electrical Continuity Inspector Goal (LTG) Pt to report pain at 2/10 at the worst. Goal unmet on 03/05/23. LTG Duration 03/27/23 Assessment Summary Assessment Pt with improving scapular control with manual cueing during prone exercises. Pt with reported fatigue of muscles at end range AROM ER, though no increase in pain. Pt continues to demonstrate crepitus with sidelying abduction, which improves slightly with MWM. Pt requires cueing to decrease elbow extension with resisted ER in standing. Pt would benefit from continued PT to progress shoulder mobility and strength to improve tolerance to functional tasks. Physical Therapy Plan Frequency and Duration Frequency of Treatment 2x/Week Duration of treatment (weeks) 11 Plan of Care Start Date 01/15/23 Plan of Care End Date 03/27/23 Therapeutic Interventions Therapeutic Interventions Home Exercise Program,Joint Mobilizations,Manual Therapy, Neuromuscular Re-education, Patient/Caregiver Education, Self-Care/Home Management,Soft Tissue Mobilization,Taping, Therapeutic Activities, Therapeutic Exercises Modalities Cold Pack/Ice Massage,Electric Stimulation,Hot Packs, Ultrasound Next Visit Focus/Plan Next Note Type Treatment Note Next Visit Plan Cont to progress scapular strength, rotator cuff strength and ROM as tolerated
--- NOTE | 2023-03-12 09:03 | PT.OTN ---
Current Diagnoses Primary osteoarthritis, right shoulder (03/12/23) Calcific tendinitis of right shoulder (03/12/23) Impingement syndrome of right shoulder (03/12/23) Physical Therapy Treatment Note PT-OP-A Visit Information Start: 01/14/23 15:35 Freq: Status: Active Protocol: Document 03/12/23 09:03 AM (Rec: 03/12/23 09:48 AM [id number]) Out-Patient Physical Therapy Visit Information Visit Information Visit Type Treatment Note Visit Start Time 09:03 Visit Stop Time 09:48 Total Visit Minutes 45 Visit Number 13 PT-OP-B Current Condition Start: 01/14/23 15:35 Freq: Status: Active Protocol: Document 02/12/23 09:49 AM (Rec: 02/12/23 11:35 AM [id number]) Current Condition History of Current Condition Onset Date years Current Complaints Pt reports burning pain with sleep. Any use of R shoulder History of Current Condition Pt reports that pain started in the late 80s early 90s. Bench pressing incident when he was lifting 200#. Pt reports that he has always had difficulty putting his R hand behind his back Prior Treatments and Tests Pt had x-ray, no prior PT PT-OP-C Subjective Start: 01/14/23 15:35 Freq: Status: Active Protocol: Document 03/12/23 09:03 AM (Rec: 03/12/23 09:48 AM [id number]) OP-PT Subjective Patient Comments Patient Comments Pt reports that his shoulder feels pretty good today. No burning sensation. PT-OP-J Posture/Palpation/Skin Start: 01/14/23 15:35 Freq: Status: Active Protocol: Document 01/15/23 10:31 AM (Rec: 01/15/23 12:09 AM [id number]) Posture Evaluation Position Standing Head/C-Spine Posture Forward Head Shoulder Posture (L) Rounded,(R) Rounded,(L) Forward,(R) Forward Palpation Assessment Location One Palpation Location R shoulder Palpation Findings Soft Tissue Tightness,Muscle Guarding,Tenderness Palpation Details Discomfort with palpation of anterior deltoid. Pt without pain with palpation of scapular musculature, though reports that it is often sore in that region. Pt with stiffness of pec minor bilaterally PT-OP-K Range of Motion Start: 01/14/23 15:35 Freq: Status: Active Protocol: Document 02/21/23 09:47 AM (Rec: 02/21/23 09:58 AM [id number]) Shoulder Goniometric Range of Motion Shoulder Right Active Shoulder ROM WFL Yes Testing Position Standing Flexion 149 Abduction 142 Internal Rotation Behind Back (text) T5 Comments L1 PT-OP-L Special Tests Start: 01/14/23 15:35 Freq: Status: Active Protocol: Document 01/15/23 10:31 AM (Rec: 01/15/23 12:09 AM [id number]) Special Tests Shoulder Special Tests Speed's Biceps Test Results Positive pain Richey Farrukh Impingement Test Results Positive R Empty Can Test Results positive R Elevation Impingement Test Results positive R PT-OP-M Strength Start: 01/14/23 15:35 Freq: Status: Active Protocol: Document 02/05/23 09:49 AM (Rec: 02/05/23 10:57 AM [id number]) Shoulder Strength Shoulder Manual Muscle Testing Right Flexion 4 Good Abduction (C5) 4 Good External Rotation 4 Good Internal Rotation 4+ Good+ PT-OP-Q Treatments Start: 01/14/23 15:35 Freq: Status: Active Protocol: Document 03/12/23 09:03 AM (Rec: 03/12/23 09:48 AM [id number]) Cardio Equipment Upper Body Ergometer (UBE) Duration (Minutes) 6 Other fwd/back Therapeutic Exercises Prone Exercises Prone low trap Prone Exercise Name Prone low trap Side right Equipment Used 2 Reps/Minutes 2x15 3 Prone Exercise Name Prone mid trap Side right Equipment Used 2 Reps/Minutes 2x15 2 Prone Exercise Name Prone shoulder row Side right Resistance 7 Reps/Minutes 3x10 1 Prone Exercise Name Prone shoulder extension Side right Resistance 7 Reps/Minutes 3x10 Sidelying Exercises Abduction iso Sidelying Exercise Name Rhythmic stabilization in abd Equipment Used 2 Reps/Minutes 2x1 min 1 Sidelying Exercise Name Shoulder ER Resistance 0 Reps/Minutes 2x10 Comments Manual cueing for scapular stabilization Sitting Exercises Lat pull down Sitting Exercise Name Seated lat pull down Resistance 40# Reps/Minutes 2x15 seated row Equipment Used 40# Reps/Minutes 2x15 Standing Exercises CKC wall circles Standing Exercise Name wall alphabet Reps/Minutes x1 1 Standing Exercise Name wall slide Reps/Minutes 2x10 Manual Therapy Treatment Soft Tissue Mobilization 2 Body Location pecs, ant/med deltoid Intensity/Depth Moderate Joint Mobilizations 2 Joint Shoulder Direction S-I Grade II Body Position Supine Reps/Duration x2 min 1 Joint Shoulder Direction A-P Grade II Body Position Supine Reps/Duration x2 min Comments A-P mob also used with manual ER, which increased range Manual Techniques Shoulder PROM Type External rotation, flexion and abduction Body Position Supine Comments 2 towel rolls under elbow PT-OP-T Assessment and Plan Start: 01/14/23 15:35 Freq: Status: Active Protocol: Document 03/12/23 09:03 AM (Rec: 03/12/23 09:48 AM [id number]) Physical Therapy Assessment Goals Five Impairment Quick Dash score Impairment Pt with 37% disability score on QuickDash outcome measure Aids Nurse Goal (LTG) Pt will demonstrate Quickdash score <15% disability. Goal unmet on 03/05/23: 36% LTG Duration 03/27/23 Four Impairment R shoulder PROM ER mobility Impairment Pt with limitations with R PROM ER, demonstrating 20 degrees at 45 deg of abduction Short Term Goal (STG) Pt able to demonstate 45 deg of shoulder ER at 45 deg PROM. GOAL MET on 02/05/23 at 60 deg STG Duration 3 weeks Aids Nurse Goal (LTG) Pt with R=L ER PROM. Goal met on 03/05/23 LTG Duration 02/26/23-achieved Three Impairment Strength deficits Impairment Pt with difficulty with functional tasks secondary to R shoulder strength deficits at 4-/5 t0 4/5 Short Term Goal (STG) Pt able to demonstrate grossly 4+/5 R shoulder strength PROGRESSING TOWARDS GOAL: Pt with strength 4-4+/5, though painful STG Duration 3 weeks Snf Goal (LTG) Pt able to demonstrate grossly 5/5 R shoudler strength Progressing towards goal: Pt with 4-4+/5 on 03/05/23 LTG Duration 03/27/23 Two Impairment Sleep difficulty Impairment Pt with sleep disturbance secondary to pain. Aids Nurse Goal (LTG) Pt reports that he is able to sleep without disturbance secondary to shoulder pain. Progressing towards goal 03/05: Pt reports decreasing pain with sleep, though continues to occur at times. LTG Duration 03/27/23 One Impairment Pain rating Impairment Pt reports pain at 7/10 at worst. Short Term Goal (STG) Pt to report pain at 4/10 at the worst. GOAL UNMET on 02/05/23. Pt reports pain has reached 9/10, which happened with sleep. STG Duration 3 weeks Snf Goal (LTG) Pt to report pain at 2/10 at the worst. Goal unmet on 03/05/23. LTG Duration 03/27/23 Assessment Summary Assessment Pt tolerated PRE well today without production of increased symptoms. Pt continues to require tactile cueing for scapular control. Pt able to do wall slide without production of pain, which had been painful in earlier PT sessions. Pt will return to PT next week to continue to progress shoulder strength and mobility for improved tolerance to functional tasks. Physical Therapy Plan Frequency and Duration Frequency of Treatment 2x/Week Duration of treatment (weeks) 11 Plan of Care Start Date 01/15/23 Plan of Care End Date 03/27/23 Therapeutic Interventions Therapeutic Interventions Home Exercise Program,Joint Mobilizations,Manual Therapy, Neuromuscular Re-education, Patient/Caregiver Education, Self-Care/Home Management,Soft Tissue Mobilization,Taping, Therapeutic Activities, Therapeutic Exercises Modalities Cold Pack/Ice Massage,Electric Stimulation,Hot Packs, Ultrasound Next Visit Focus/Plan Next Note Type Treatment Note Next Visit Plan Cont to progress scapular strength, rotator cuff strength and ROM as tolerated
--- NOTE | 2023-03-19 10:36 | PT.OTN ---
Current Diagnoses Primary osteoarthritis, right shoulder (03/19/23) Calcific tendinitis of right shoulder (03/19/23) Impingement syndrome of right shoulder (03/19/23) Physical Therapy Treatment Note PT-OP-A Visit Information Start: 01/14/23 15:35 Freq: Status: Active Protocol: Document 03/19/23 10:36 AM (Rec: 03/19/23 11:23 AM [id number]) Out-Patient Physical Therapy Visit Information Visit Information Visit Type Treatment Note Visit Start Time 10:36 Visit Stop Time 11:17 Total Visit Minutes 41 Visit Number 14 PT-OP-B Current Condition Start: 01/14/23 15:35 Freq: Status: Active Protocol: Document 02/12/23 09:49 AM (Rec: 02/12/23 11:35 AM [id number]) Current Condition History of Current Condition Onset Date years Current Complaints Pt reports burning pain with sleep. Any use of R shoulder History of Current Condition Pt reports that pain started in the late 80s early 90s. Bench pressing incident when he was lifting 200#. Pt reports that he has always had difficulty putting his R hand behind his back Prior Treatments and Tests Pt had x-ray, no prior PT PT-OP-C Subjective Start: 01/14/23 15:35 Freq: Status: Active Protocol: Document 03/19/23 10:36 AM (Rec: 03/19/23 11:23 AM [id number]) OP-PT Subjective Patient Comments Patient Comments Pt reports that he is not having burning sensation. Pt reports intermittent impingement pain. PT-OP-J Posture/Palpation/Skin Start: 01/14/23 15:35 Freq: Status: Active Protocol: Document 01/15/23 10:31 AM (Rec: 01/15/23 12:09 AM [id number]) Posture Evaluation Position Standing Head/C-Spine Posture Forward Head Shoulder Posture (L) Rounded,(R) Rounded,(L) Forward,(R) Forward Palpation Assessment Location One Palpation Location R shoulder Palpation Findings Soft Tissue Tightness,Muscle Guarding,Tenderness Palpation Details Discomfort with palpation of anterior deltoid. Pt without pain with palpation of scapular musculature, though reports that it is often sore in that region. Pt with stiffness of pec minor bilaterally PT-OP-K Range of Motion Start: 01/14/23 15:35 Freq: Status: Active Protocol: Document 02/21/23 09:47 AM (Rec: 02/21/23 09:58 AM [id number]) Shoulder Goniometric Range of Motion Shoulder Right Active Shoulder ROM WFL Yes Testing Position Standing Flexion 149 Abduction 142 Internal Rotation Behind Back (text) T5 Comments L1 PT-OP-L Special Tests Start: 01/14/23 15:35 Freq: Status: Active Protocol: Document 01/15/23 10:31 AM (Rec: 01/15/23 12:09 AM [id number]) Special Tests Shoulder Special Tests Speed's Biceps Test Results Positive pain Richey Farrukh Impingement Test Results Positive R Empty Can Test Results positive R Elevation Impingement Test Results positive R PT-OP-M Strength Start: 01/14/23 15:35 Freq: Status: Active Protocol: Document 02/05/23 09:49 AM (Rec: 02/05/23 10:57 AM [id number]) Shoulder Strength Shoulder Manual Muscle Testing Right Flexion 4 Good Abduction (C5) 4 Good External Rotation 4 Good Internal Rotation 4+ Good+ PT-OP-Q Treatments Start: 01/14/23 15:35 Freq: Status: Active Protocol: Document 03/19/23 10:36 AM (Rec: 03/19/23 11:23 AM [id number]) Cardio Equipment Upper Body Ergometer (UBE) Duration (Minutes) 6 Other fwd/back Therapeutic Exercises Prone Exercises Prone low trap Prone Exercise Name Prone low trap Side right Equipment Used 2 Reps/Minutes 2x15 3 Prone Exercise Name Prone mid trap Side right Equipment Used 2 Reps/Minutes 2x15 2 Prone Exercise Name Prone shoulder row Side right Resistance 7 Reps/Minutes 3x10 1 Prone Exercise Name Prone shoulder extension Side right Resistance 7 Reps/Minutes 3x10 Sitting Exercises Lat pull down Sitting Exercise Name Seated lat pull down Resistance 40# Reps/Minutes 2x15 Seated lat stretch Reps/Minutes x1 min seated row Equipment Used 40# Reps/Minutes 2x15 Standing Exercises 4 Standing Exercise Name Shoulder IR Resistance PTB Equipment Used towel roll Reps/Minutes 2x10 2 Standing Exercise Name Shoulder ER Side right Resistance BTB Equipment Used towel roll Reps/Minutes 2x10 Manual Therapy Treatment Joint Mobilizations 2 Joint Shoulder Direction S-I Grade II Body Position Supine Reps/Duration x2 min 1 Joint Shoulder Direction A-P Grade II Body Position Supine Reps/Duration x2 min Comments A-P mob also used with manual ER, which increased range Manual Techniques Shoulder PROM Type External rotation, flexion and abduction Body Position Supine Comments 2 towel rolls under elbow PT-OP-T Assessment and Plan Start: 01/14/23 15:35 Freq: Status: Active Protocol: Document 03/19/23 10:36 AM (Rec: 03/19/23 11:23 AM [id number]) Physical Therapy Assessment Goals Five Impairment Quick Dash score Impairment Pt with 37% disability score on QuickDash outcome measure Surgical Scrub Technician Goal (LTG) Pt will demonstrate Quickdash score <15% disability. Goal unmet on 03/05/23: 36% LTG Duration 03/27/23 Four Impairment R shoulder PROM ER mobility Impairment Pt with limitations with R PROM ER, demonstrating 20 degrees at 45 deg of abduction Short Term Goal (STG) Pt able to demonstate 45 deg of shoulder ER at 45 deg PROM. GOAL MET on 02/05/23 at 60 deg STG Duration 3 weeks Surgical Scrub Technician Goal (LTG) Pt with R=L ER PROM. Goal met on 03/05/23 LTG Duration 02/26/23-achieved Three Impairment Strength deficits Impairment Pt with difficulty with functional tasks secondary to R shoulder strength deficits at 4-/5 t0 4/5 Short Term Goal (STG) Pt able to demonstrate grossly 4+/5 R shoulder strength PROGRESSING TOWARDS GOAL: Pt with strength 4-4+/5, though painful STG Duration 3 weeks [facility] Goal (LTG) Pt able to demonstrate grossly 5/5 R shoudler strength Progressing towards goal: Pt with 4-4+/5 on 03/05/23 LTG Duration 03/27/23 Two Impairment Sleep difficulty Impairment Pt with sleep disturbance secondary to pain. [facility] Goal (LTG) Pt reports that he is able to sleep without disturbance secondary to shoulder pain. Progressing towards goal 03/05: Pt reports decreasing pain with sleep, though continues to occur at times. LTG Duration 03/27/23 One Impairment Pain rating Impairment Pt reports pain at 7/10 at worst. Short Term Goal (STG) Pt to report pain at 4/10 at the worst. GOAL UNMET on 02/05/23. Pt reports pain has reached 9/10, which happened with sleep. STG Duration 3 weeks Surgical Scrub Technician Goal (LTG) Pt to report pain at 2/10 at the worst. Goal unmet on 03/05/23. LTG Duration 03/27/23 Assessment Summary Assessment Pt demonstrates improved shoulder ER mobility. Pt continues to demonstrate impingement and crepitus with shoulder abduction, though tolerates all other ROM well. Pt demonstrates improving scapular control. Pt will return to PT next week to continue to progress shoulder moiblity and strength. Physical Therapy Plan Frequency and Duration Frequency of Treatment 2x/Week Duration of treatment (weeks) 11 Plan of Care Start Date 01/15/23 Plan of Care End Date 03/27/23 Therapeutic Interventions Therapeutic Interventions Home Exercise Program,Joint Mobilizations,Manual Therapy, Neuromuscular Re-education, Patient/Caregiver Education, Self-Care/Home Management,Soft Tissue Mobilization,Taping, Therapeutic Activities, Therapeutic Exercises Modalities Cold Pack/Ice Massage,Electric Stimulation,Hot Packs, Ultrasound Next Visit Focus/Plan Next Note Type Treatment Note Next Visit Plan Cont to progress scapular strength, rotator cuff strength and ROM as tolerated
--- NOTE | 2023-03-24 09:03 | PT.OTN ---
Current Diagnoses Primary osteoarthritis, right shoulder (03/24/23) Calcific tendinitis of right shoulder (03/24/23) Impingement syndrome of right shoulder (03/24/23) Physical Therapy Treatment Note PT-OP-A Visit Information Start: 01/14/23 15:35 Freq: Status: Active Protocol: Document 03/24/23 09:03 AM (Rec: 03/24/23 09:47 AM [id number]) Out-Patient Physical Therapy Visit Information Visit Information Visit Type Treatment Note Visit Start Time 09:03 Visit Stop Time 09:44 Total Visit Minutes 41 Visit Number 15 PT-OP-B Current Condition Start: 01/14/23 15:35 Freq: Status: Active Protocol: Document 02/12/23 09:49 AM (Rec: 02/12/23 11:35 AM [id number]) Current Condition History of Current Condition Onset Date years Current Complaints Pt reports burning pain with sleep. Any use of R shoulder History of Current Condition Pt reports that pain started in the late 80s early 90s. Bench pressing incident when he was lifting 200#. Pt reports that he has always had difficulty putting his R hand behind his back Prior Treatments and Tests Pt had x-ray, no prior PT PT-OP-C Subjective Start: 01/14/23 15:35 Freq: Status: Active Protocol: Document 03/24/23 09:03 AM (Rec: 03/24/23 09:47 AM [id number]) OP-PT Subjective Patient Comments Patient Comments Pt reports that he saw his referring provider and he is not going to get the injection right now. He is going to continue with PT and start working out at the gym. He is also trying to find a massage therapist that takes his insurance. PT-OP-J Posture/Palpation/Skin Start: 01/14/23 15:35 Freq: Status: Active Protocol: Document 01/15/23 10:31 AM (Rec: 01/15/23 12:09 AM [id number]) Posture Evaluation Position Standing Head/C-Spine Posture Forward Head Shoulder Posture (L) Rounded,(R) Rounded,(L) Forward,(R) Forward Palpation Assessment Location One Palpation Location R shoulder Palpation Findings Soft Tissue Tightness,Muscle Guarding,Tenderness Palpation Details Discomfort with palpation of anterior deltoid. Pt without pain with palpation of scapular musculature, though reports that it is often sore in that region. Pt with stiffness of pec minor bilaterally PT-OP-K Range of Motion Start: 01/14/23 15:35 Freq: Status: Active Protocol: Document 02/21/23 09:47 AM (Rec: 02/21/23 09:58 AM [id number]) Shoulder Goniometric Range of Motion Shoulder Right Active Shoulder ROM WFL Yes Testing Position Standing Flexion 149 Abduction 142 Internal Rotation Behind Back (text) T5 Comments L1 PT-OP-L Special Tests Start: 01/14/23 15:35 Freq: Status: Active Protocol: Document 01/15/23 10:31 AM (Rec: 01/15/23 12:09 AM [id number]) Special Tests Shoulder Special Tests Speed's Biceps Test Results Positive pain Richey Farrukh Impingement Test Results Positive R Empty Can Test Results positive R Elevation Impingement Test Results positive R PT-OP-M Strength Start: 01/14/23 15:35 Freq: Status: Active Protocol: Document 02/05/23 09:49 AM (Rec: 02/05/23 10:57 AM [id number]) Shoulder Strength Shoulder Manual Muscle Testing Right Flexion 4 Good Abduction (C5) 4 Good External Rotation 4 Good Internal Rotation 4+ Good+ PT-OP-Q Treatments Start: 01/14/23 15:35 Freq: Status: Active Protocol: Document 03/24/23 09:03 AM (Rec: 03/24/23 09:47 AM [id number]) Cardio Equipment Upper Body Ergometer (UBE) Duration (Minutes) 6 Other fwd/back Therapeutic Exercises Prone Exercises Prone low trap Prone Exercise Name Prone low trap Side right Equipment Used 3 Reps/Minutes 2x10 3 Prone Exercise Name Prone mid trap Side right Equipment Used 3 Reps/Minutes 2x10 2 Prone Exercise Name Prone shoulder row Side right Resistance 7 Reps/Minutes 3x10 1 Prone Exercise Name Prone shoulder extension Side right Resistance 7 Reps/Minutes 3x10 Sitting Exercises Lat pull down Sitting Exercise Name Seated lat pull down Resistance 40# Reps/Minutes 2x15 seated row Equipment Used 40# Reps/Minutes 2x15 Standing Exercises Shoulder press Side bilateral Resistance 3# Reps/Minutes 2x10 Standing flexion Side bilateral Resistance 3# Equipment Used 2x10 Standing scaption Side bilateral Resistance 3# Reps/Minutes 2x10 Manual Therapy Treatment Soft Tissue Mobilization 2 Body Location pecs, ant/med deltoid Intensity/Depth Moderate Joint Mobilizations 2 Joint Shoulder Direction S-I Grade II Body Position Supine Reps/Duration x2 min 1 Joint Shoulder Direction A-P Grade II Body Position Supine Reps/Duration x2 min Comments A-P mob also used with manual ER, which increased range Manual Techniques Manually resisted IR/ER Reps/Duration 2x10 Comments manually resisted Shoulder PROM Type External rotation, flexion and abduction Body Position Supine Comments 2 towel rolls under elbow PT-OP-T Assessment and Plan Start: 01/14/23 15:35 Freq: Status: Active Protocol: Document 03/24/23 09:03 AM (Rec: 03/24/23 09:47 AM [id number]) Physical Therapy Assessment Goals Five Impairment Quick Dash score Impairment Pt with 37% disability score on QuickDash outcome measure [facility] Goal (LTG) Pt will demonstrate Quickdash score <15% disability. Goal unmet on 03/05/23: 36% LTG Duration 03/27/23 Four Impairment R shoulder PROM ER mobility Impairment Pt with limitations with R PROM ER, demonstrating 20 degrees at 45 deg of abduction Short Term Goal (STG) Pt able to demonstate 45 deg of shoulder ER at 45 deg PROM. GOAL MET on 02/05/23 at 60 deg STG Duration 3 weeks [facility] Goal (LTG) Pt with R=L ER PROM. Goal met on 03/05/23 LTG Duration 02/26/23-achieved Three Impairment Strength deficits Impairment Pt with difficulty with functional tasks secondary to R shoulder strength deficits at 4-/5 t0 4/5 Short Term Goal (STG) Pt able to demonstrate grossly 4+/5 R shoulder strength PROGRESSING TOWARDS GOAL: Pt with strength 4-4+/5, though painful STG Duration 3 weeks Glass Science Engineer Goal (LTG) Pt able to demonstrate grossly 5/5 R shoudler strength Progressing towards goal: Pt with 4-4+/5 on 03/05/23 LTG Duration 03/27/23 Two Impairment Sleep difficulty Impairment Pt with sleep disturbance secondary to pain. Glass [employer] Engineer Goal (LTG) Pt reports that he is able to sleep without disturbance secondary to shoulder pain. Progressing towards goal 03/05: Pt reports decreasing pain with sleep, though continues to occur at times. LTG Duration 03/27/23 One Impairment Pain rating Impairment Pt reports pain at 7/10 at worst. Short Term Goal (STG) Pt to report pain at 4/10 at the worst. GOAL UNMET on 02/05/23. Pt reports pain has reached 9/10, which happened with sleep. STG Duration 3 weeks Glass Science Engineer Goal (LTG) Pt to report pain at 2/10 at the worst. Goal unmet on 03/05/23. LTG Duration 03/27/23 Assessment Summary Assessment Pt tolerated PRE well today. Pt demonstrates improving scapular control, though continues to have crepitus with abduction movements. Pt demonstrated shoulder fatigue with exercises today. Pt demonstrates full pain-free shoulder ER PROM now. Physical Therapy Plan Frequency and Duration Frequency of Treatment 2x/Week Duration of treatment (weeks) 11 Plan of Care Start Date 01/15/23 Plan of Care End Date 03/27/23 Therapeutic Interventions Therapeutic Interventions Home Exercise Program,Joint Mobilizations,Manual Therapy, Neuromuscular Re-education, Patient/Caregiver Education, Self-Care/Home Management,Soft Tissue Mobilization,Taping, Therapeutic Activities, Therapeutic Exercises Modalities Cold Pack/Ice Massage,Electric Stimulation,Hot Packs, Ultrasound Next Visit Focus/Plan Next Note Type Treatment Note Next Visit Plan Cont to progress scapular strength, rotator cuff strength and ROM as tolerated
--- NOTE | 2023-03-26 09:04 | PT.OTN ---
Current Diagnoses Primary osteoarthritis, right shoulder (03/26/23) Calcific tendinitis of right shoulder (03/26/23) Impingement syndrome of right shoulder (03/26/23) Physical Therapy Treatment Note PT-OP-A Visit Information Start: 01/14/23 15:35 Freq: Status: Active Protocol: Document 03/26/23 09:04 AM (Rec: 03/26/23 11:30 AM [id number]) Out-Patient Physical Therapy Visit Information Visit Information Visit Type Discharge Summary Visit Start Time 09:04 Visit Stop Time 09:46 Total Visit Minutes 42 Visit Number 16 PT-OP-B Current Condition Start: 01/14/23 15:35 Freq: Status: Active Protocol: Document 02/12/23 09:49 AM (Rec: 02/12/23 11:35 AM [id number]) Current Condition History of Current Condition Onset Date years Current Complaints Pt reports burning pain with sleep. Any use of R shoulder History of Current Condition Pt reports that pain started in the late 80s early 90s. Bench pressing incident when he was lifting 200#. Pt reports that he has always had difficulty putting his R hand behind his back Prior Treatments and Tests Pt had x-ray, no prior PT PT-OP-C Subjective Start: 01/14/23 15:35 Freq: Status: Active Protocol: Document 03/26/23 09:04 AM (Rec: 03/26/23 11:30 AM [id number]) OP-PT Subjective Patient Comments Patient Comments Pt reports that he started back at a gym. Pt reports that his chest felt sore, but no increase in shoulder pain. PT-OP-J Posture/Palpation/Skin Start: 01/14/23 15:35 Freq: Status: Active Protocol: Document 01/15/23 10:31 AM (Rec: 01/15/23 12:09 AM [id number]) Posture Evaluation Position Standing Head/C-Spine Posture Forward Head Shoulder Posture (L) Rounded,(R) Rounded,(L) Forward,(R) Forward Palpation Assessment Location One Palpation Location R shoulder Palpation Findings Soft Tissue Tightness,Muscle Guarding,Tenderness Palpation Details Discomfort with palpation of anterior deltoid. Pt without pain with palpation of scapular musculature, though reports that it is often sore in that region. Pt with stiffness of pec minor bilaterally PT-OP-K Range of Motion Start: 01/14/23 15:35 Freq: Status: Active Protocol: Document 02/21/23 09:47 AM (Rec: 02/21/23 09:58 AM [id number]) Shoulder Goniometric Range of Motion Shoulder Right Active Shoulder ROM WFL Yes Testing Position Standing Flexion 149 Abduction 142 Internal Rotation Behind Back (text) T5 Comments L1 PT-OP-L Special Tests Start: 01/14/23 15:35 Freq: Status: Active Protocol: Document 01/15/23 10:31 AM (Rec: 01/15/23 12:09 AM [id number]) Special Tests Shoulder Special Tests Speed's Biceps Test Results Positive pain Richey Farrukh Impingement Test Results Positive R Empty Can Test Results positive R Elevation Impingement Test Results positive R PT-OP-M Strength Start: 01/14/23 15:35 Freq: Status: Active Protocol: Document 02/05/23 09:49 AM (Rec: 02/05/23 10:57 AM [id number]) Shoulder Strength Shoulder Manual Muscle Testing Right Flexion 4 Good Abduction (C5) 4 Good External Rotation 4 Good Internal Rotation 4+ Good+ PT-OP-Q Treatments Start: 01/14/23 15:35 Freq: Status: Active Protocol: Document 03/26/23 09:04 AM (Rec: 03/26/23 11:30 AM [id number]) Therapeutic Exercises Prone Exercises Prone low trap Prone Exercise Name Prone low trap Side right Equipment Used 3 Reps/Minutes 2x10 3 Prone Exercise Name Prone mid trap Side right Equipment Used 3 Reps/Minutes 2x10 2 Prone Exercise Name Prone shoulder row Side right Resistance 7 Reps/Minutes 3x10 1 Prone Exercise Name Prone shoulder extension Side right Resistance 7 Reps/Minutes 3x10 Sidelying Exercises Abduction iso Sidelying Exercise Name Sidelying abd iso Side right Resistance manual rhythmic stab, 3# weight Reps/Minutes 2x30 sec 1 Side right Resistance 3# Reps/Minutes 2x10 Comments cues for scap control Sitting Exercises Lat pull down Sitting Exercise Name Seated lat pull down Resistance 40# Reps/Minutes 2x15 seated row Equipment Used 40# Reps/Minutes 2x15 Standing Exercises Shoulder press Side bilateral Resistance 3# Reps/Minutes 2x10 Standing flexion Side bilateral Resistance 3# Equipment Used 2x10 Standing scaption Side bilateral Resistance 3# Reps/Minutes 2x10 4 Standing Exercise Name Shoulder IR Resistance PTB Equipment Used towel roll Reps/Minutes 2x10 2 Standing Exercise Name Shoulder ER Side right Resistance BTB Equipment Used towel roll Reps/Minutes 2x10 1 Standing Exercise Name wall slide Reps/Minutes x15 Manual Therapy Treatment Soft Tissue Mobilization 2 Body Location pecs, ant/med deltoid Intensity/Depth Moderate Joint Mobilizations 2 Joint Shoulder Direction S-I Grade II Body Position Supine Reps/Duration x2 min 1 Joint Shoulder Direction A-P Grade II Body Position Supine Reps/Duration x2 min Comments A-P mob also used with manual ER, which increased range Manual Techniques Shoulder PROM Type External rotation, flexion and abduction Body Position Supine Comments 2 towel rolls under elbow PT-OP-T Assessment and Plan Start: 01/14/23 15:35 Freq: Status: Active Protocol: Document 03/26/23 09:04 AM (Rec: 03/26/23 11:30 AM [id number]) Physical Therapy Assessment Goals Five Impairment Quick Dash score Impairment Pt with 37% disability score on QuickDash outcome measure Hot Metal Car Operator Goal (LTG) Pt will demonstrate Quickdash score <15% disability. Goal unmet on 03/05/23: 36% Goal met on 03/26/23: 17% LTG Duration 03/27/23-achieved Four Impairment R shoulder PROM ER mobility Impairment Pt with limitations with R PROM ER, demonstrating 20 degrees at 45 deg of abduction Short Term Goal (STG) Pt able to demonstate 45 deg of shoulder ER at 45 deg PROM. GOAL MET on 02/05/23 at 60 deg STG Duration 3 weeks Hot Metal Car Operator Goal (LTG) Pt with R=L ER PROM. Goal met on 03/05/23 LTG Duration 02/26/23-achieved Three Impairment Strength deficits Impairment Pt with difficulty with functional tasks secondary to R shoulder strength deficits at 4-/5 t0 4/5 Short Term Goal (STG) Pt able to demonstrate grossly 4+/5 R shoulder strength PROGRESSING TOWARDS GOAL: Pt with strength 4-4+/5, though painful STG Duration 3 weeks Hot Metal Car Operator Goal (LTG) Pt able to demonstrate grossly 5/5 R shoudler strength 03/26/23: Pt with 4+/5 to 5/5 at R shoulder-achieved LTG Duration 03/27/23-achieved Two Impairment Sleep difficulty Impairment Pt with sleep disturbance secondary to pain. Hot Metal Car Operator Goal (LTG) Pt reports that he is able to sleep without disturbance secondary to shoulder pain. Progressing towards goal 03/05: Pt reports decreasing pain with sleep, though continues to occur at times. LTG Duration 03/27/23 One Impairment Pain rating Impairment Pt reports pain at 7/10 at worst. Short Term Goal (STG) Pt to report pain at 4/10 at the worst. GOAL UNMET on 02/05/23. Pt reports pain has reached 9/10, which happened with sleep. STG Duration 3 weeks Hot Metal Car Operator Goal (LTG) Pt to report pain at 2/10 at the worst. Progressing: Pt reports pain at 3/10 at times on 03/26/23 LTG Duration 03/27/23 Progress Towards Goals Progress Towards Goals Goals Met Assessment Summary Assessment Pt agreeable to d/c today with good understanding of HEP. Pt educated on progression towards independent gym program, with focus on back vs chest strengthening activities. Pt demonstrates improved overall strength and mobility since start of PT. Physical Therapy Plan Frequency and Duration Frequency of Treatment 2x/Week Duration of treatment (weeks) 11 Plan of Care Start Date 01/15/23 Plan of Care End Date 03/27/23 Therapeutic Interventions Therapeutic Interventions Home Exercise Program,Joint Mobilizations,Manual Therapy, Neuromuscular Re-education, Patient/Caregiver Education, Self-Care/Home Management,Soft Tissue Mobilization,Taping, Therapeutic Activities, Therapeutic Exercises Modalities Cold Pack/Ice Massage,Electric Stimulation,Hot Packs, Ultrasound Discharge Physical Therapy Discharge Reasons Goals Met Discharge Comments Pt agreeable to d/c today. Next Visit Focus/Plan Next Note Type Treatment Note Next Visit Plan Cont to progress scapular strength, rotator cuff strength and ROM as tolerated
== END 2023-04-08 11:21 | disposition home or self-care (01) ==
LOC: PHYS 09:00
PROVIDERS: Family Provider Student in an Organized Health Care Education/Training Program; PCP Student in an Organized Health Care Education/Training Program; Referring Provider Physician Assistant; Visit Provider Physician Assistant
DX: M75.31 Calcific tendinitis of right shoulder (principal); M75.41 Impingement syndrome of right shoulder; M19.011 Primary osteoarthritis, right shoulder
CPT/HCPCS: 97110; 97140; 97161

== ENCOUNTER → 2023-04-09 09:04 | Outpatient (CLI) | payer OTHER, BC, SELFPAY ==
[2022-06-04 12:06] VITALS: BMI 41.9
[2023-04-09 10:14] LABS: Add Manual Diff / Slide Review NO; Basophils Absolute Auto 100 /uL (0-100); Basophils Percent Auto 1.8 % (0-2); Eosinophils Absolute Auto 100 /uL (0-450); Eosinophils Percent Auto 2.9 % (2-4); Hematocrit 44.2 % (41-53); Lymphocytes Absolute Auto 1000 /uL (1100-4500); Mean Corpuscular HGB Conc 33.8 % (30-36); Mean Corpuscular Hemoglobin 31.7 PG (26-34); Mean Corpuscular Volume 93.8 fL (80-100); Monocytes Absolute Auto 400 /uL (0-900); Neutrophils Absolute Auto 2700 /uL (1500-7000); Neutrophils Percent Auto 62.3 % (50-75); Platelet Count 178 X10^3/uL (150-400); Red Blood Cell Count 4.71 X10^6/uL (4.5-5.9); Red Cell Distribution Width 13.7 % (11.6-14.8); White Blood Cell Count 4.3 X10^3/uL (4.5-11.0)
[2023-04-09 10:35] LABS: Alanine Aminotransferase 53 IU/L (<50); Albumin 4.2 g/dL (3.5-5.0); Albumin Globulin Ratio 1.7 (1.0-2.8); Alkaline Phosphatase 34 U/L (38-126); Aspartate Aminotransferase 34 IU/L (17-59); BUN Creatinine Ratio 15.2 (6-22); Bilirubin Total 0.9 mg/dL (0.2-1.3); Blood Urea Nitrogen 15 mg/dL (9-20); Calcium 9.7 mg/dL (8.4-10.2); Carbon Dioxide 29 mmol/L (22-32); Chloride 103 mmol/L (98-107); Cholesterol 178 mg/dL (140-199); Estimated Glomerular Filt Rate > 60 mL/min (>60); Globulin 2.5 g/dL (1.7-4.1); Glucose 141 mg/dL (70-100); HDL Cholesterol 41 mg/dL (40-60); HEMOLYSIS < 15 (0-50); LDL Cholesterol Calculated 111 mg/dL (<100); Potassium 4.6 mmol/L (3.4-5.1); Sodium 137 mmol/L (137-145); Total Protein 6.7 g/dL (6.3-8.2); Triglycerides 132 mg/dL (35-150)
[2023-04-09 10:50] LABS: Vitamin D 25 Hydroxy (D3) 50.8 ng/mL (30.0-100.0)
[2023-04-09 11:03] LABS: Prostate Specific Antigen 0.692 ng/mL (0.10-4.00)
[2023-04-14 10:58] LABS: Percent Free Testosterone 2.83 % (1.50-4.20); Testosterone Free 13.71 ng/dL (5.00-21.00); Testosterone Total 484.4 ng/dL (264.0-916.0)
== END ==
PROVIDERS: Family Provider Student in an Organized Health Care Education/Training Program; PCP Student in an Organized Health Care Education/Training Program; Referring Provider Student in an Organized Health Care Education/Training Program; Visit Provider Student in an Organized Health Care Education/Training Program
DX: Z00.00 Encounter for general adult medical examination without abnormal findings (principal); E78.00 Pure hypercholesterolemia, unspecified; R73.01 Impaired fasting glucose; E29.1 Testicular hypofunction
CPT/HCPCS: 36415; 80053; 80061; 82306; 84153; 84402; 84403; 85025

== ENCOUNTER 2023-07-14 08:02 | Emergency (ER) | payer OTHER, BC, SELFPAY ==
[2022-06-04 12:06] VITALS: BMI 41.9
[2023-07-14 08:08] VITALS: PULSE 68; O2SAT 99
[2023-07-14 08:09] VITALS: BP 138/83; PULSE 75; O2SAT 97
[2023-07-14 08:11] VITALS: BP 138/83; PULSE 71; RESP 16; TEMP 36.7; O2SAT 98; BMI 40.7
--- NOTE | 2023-07-14 08:29 | ED.SKABFB ---
HPI - Skin/Abscess/Foreign Bdy General Chief complaint: Skin/Abscess/Foreign Body Stated complaint: extreme rectal pain & lump Time Seen by Provider: 07/14/23 08:26 Source: patient Mode of arrival: Ambulatory Limitations: no limitations History of Present Illness HPI narrative: 58-year-old male with history of LENCHO, obesity, hypertension, dyslipidemia with recent COVID infection currently completing Paxlovid. Patient complains of rectal pain at the 5 o'clock position. Patient states there is a fullness. He states he has had symptoms for some time he had dry duty with sitting for quite a bit and then had a long flight to [place] at 1 point and states had increasing pain and fullness. He states it seems to be more on the outside. He does not have any internal rectal pain. He has had some fevers and chills but states he is related that to his COVID infection. No active cough cold or congestion currently. States had some nausea but no vomiting yesterday. Has had soft well formed stools daily with no black or blood. He states no rectal pain with bowel movements. States mild intra abdominal pain. Patient states did have a pilonidal cyst in the that this feels somewhat similar. Patient has been alternating Tylenol and ibuprofen for pain management. He has stops of his home medications because of Paxlovid. Patient states no prior surgeries. Has a reported allergy to penicillin from when he was a small child. Patient states he can takes medication like amoxicillin without issue. No tobacco, occasional alcohol, no recreational drugs. Related Data Home Medications Medication Instructions Recorded Confirmed testosterone 1.62 % (40.5 mg/2.5 2.5 gm TD QAM ##0 06/05/16 06/04/22 gram) transdermal gel packet (AndroGel) multivitamin (Multiple Vitamins 1 tab PO QDAY ##0 02/18/17 06/04/22 tablet) aspirin 81 mg tablet,delayed 81 mg PO DAILY 07/20/18 06/04/22 release (Aspir-) Respironics Dreamstation CPAP #1 ea 09/30/18 06/04/22 omeprazole 10 mg capsule,delayed 10 mg PO DAILY 06/04/22 06/04/22 release simvastatin 40 mg tablet 40 mg PO QPM 06/04/22 06/04/22 Previous Rx's Medication Instructions Recorded meclizine 25 mg tablet 25 mg PO Q6HR PRN dizziness #30 06/06/22 tabs metoclopramide HCl 10 mg tablet 10 mg PO Q6H PRN nausea and 06/06/22 (Reglan) vomiting #30 tabs ciprofloxacin HCl 500 mg tablet 500 mg PO Q12H #20 tabs 07/14/23 metronidazole 500 mg tablet 500 mg PO TID #30 tabs 07/14/23 tramadol 50 mg tablet 50 mg PO Q6H PRN pain #10 tabs 07/14/23 Allergies Allergy/AdvReac Type Severity Reaction Status Date / Time Penicillins [PENICILLINS] Allergy Intermediate Hives Verified 07/14/23 08:15 Review of Systems Review of Systems ROS Unobtainable: All systems reviewed & are unremarkable except as noted in HPI and below Patient History Medical History Bilateral pneumonia COVID-19 virus detected Exposure to COVID-19 virus Viral syndrome Hypogonadism in male Asthma Depression GERD (gastroesophageal reflux disease) Allergic rhinitis Hyperlipidemia Obstructive sleep apnea of adult Snoring Morbid obesity with BMI of 40.0-44.9, adult Social History marital status: unmarried,living together details: with An Pena, lives in [place] household members: significant other lives independently: Yes caregiver/support person: No housing: house occupational status: employed current occupational exposures/hazards: Yes (employed at [employer]) Smoking Status: Never smoker alcohol intake: current substance use type: does not use Smoking Status: Never smoker alcohol intake frequency: 0-2 drinks per day Substance Use Type: does not use Exam Narrative Exam Narrative: GENERAL: Alert and oriented x three, male in mild distress. HEENT: Head normocephalic, atraumatic, EOMI, pupils reactive, face symmetric, moist mucous membranes NECK: Supple, full range of motion CARDIOVASCULAR: Regular rate and rhythm without murmurs, rubs or gallops. RESPIRATORY: Breath sounds equal bilaterally, no wheezes rales or rhonchi. ABDOMEN: Soft, nontender. Normoactive bowel sounds all 4 quadrants. No guarding or rebound, rigidity, no mass, on rectal exam patient has some fullness, no induration, no erythema or skin changes at the proximally cm from the rectum at the 5 o'clock position but no discrete abscess or fluctuance. Patient is nontender on digital rectal exam with no fullness or pain. : No CVA tenderness EXTREMITIES: Normal range of motion, no clubbing or edema. Neurovascularly intact NEUROLOGICAL: Cranial nerves II through XII grossly intact. Moving all extremities SKIN: Warm, dry, no petechiae, no rashes or lesions. Initial Vital Signs Initial Vital Signs: Vital Signs Pulse Rate 68 07/14/23 08:08 Pulse Oximetry 99 07/14/23 08:08 Course Vital Signs Vital signs: Vital Signs - 8 hr 07/14/23 08:08 07/14/23 08:09 07/14/23 08:09 Temperature Pulse Rate 68 75 Respiratory Rate Blood Pressure 138/83 Pulse Oximetry 99 97 Oxygen Delivery Method 07/14/23 08:11 Temperature 98.1 F Pulse Rate 71 Respiratory Rate 16 Blood Pressure 138/83 Pulse Oximetry 98 Oxygen Delivery Method Room Air MDM - Skin/Abscess/Foreign Bdy MDM Narrative Medical decision making narrative: 58-year-old male appears to be likely developing abscess or cyst near the rectum. No pain with digital rectal exam. There is no clear abscess but there is some fullness so we will start patient on oral antibiotics, continue with Sitz bath with return precautions. Discussed with patient if fevers continue after COVID symptoms have passed worrying develops increasing pain of the rectal area, swelling or new abdominal pain needs to be re-evaluated. Discharge Plan Departure Patient Disposition: Home Clinical Impression: Pain, rectum Activity Restrictions/Additional Instructions: Follow up with General surgery if your symptoms are not resolving after 1 or 2 days of antibiotics or if you start to develop a increasing swelling and pain. Contact information is included below. You may take Tylenol up to a 1000 mg every 6 hours as needed for pain, and/or ibuprofen up to 600 mg every 6 hours. You can take your daily 15 mg meloxicam with Tylenol. Do not take this medication with other NSAIDs such as Aleve, ibuprofen or naproxen. You can take tramadol 1-2 tablets every 6 hours for pain, This medication can make you sleepy do not drive, perform hazardous activities or make any major decisions while taking it. This medication will make you constipated please take a stool softener once to twice daily until stools are soft and regular. Take antibiotics until completed. Do not drink any alcohol with the metronidazole or Flagyl as it will make you vomit. Pres[facility] [place] Please return for fevers, increasing abdominal or rectal pain, increasing swelling, black or bloody stools, lightheadedness or passing out, vomiting or other new or concerning changes. Prescriptions: New ciprofloxacin HCl 500 mg tablet 500 mg PO Q12H Qty: 20 0RF metronidazole 500 mg tablet 500 mg PO TID Qty: 30 0RF tramadol 50 mg tablet 50 mg PO Q6H PRN (Reason: pain) Qty: 10 0RF No Action testosterone [AndroGel] 2.5 GM gel in packet 2.5 gm TD QAM Qty: 0 multivitamin [Multiple Vitamins] 1 EACH tablet 1 tab PO QDAY Qty: 0 aspirin [Aspir-81] 81 mg Tablet,Delayed Release (Dr/Ec) 81 mg PO DAILY simvastatin 40 mg tablet 40 mg PO QPM Patient Comments: take 1 tablet by mouth every evening omeprazole 10 mg Capsule,Delayed Release(Dr/Ec) 10 mg PO DAILY metoclopramide HCl [Reglan] 10 mg tablet 10 mg PO Q6H PRN (Reason: nausea and vomiting) Qty: 30 0RF meclizine 25 mg tablet 25 mg PO Q6HR PRN (Reason: dizziness) Qty: 30 0RF (DME) Respironics Dreamstation CPAP Qty: 1 Dose Instruction: As directed Patient Comments: Pressure: 8-14 cmH2O DME: [facility] Rx Instructions: As directed Referrals: Solange Bey MD [Physician] - Ly Falcon PA-C [Primary Care Provider] - Stand Alone Forms: Patient Portal/API
== END 2023-07-14 09:03 | disposition home or self-care (01) ==
PROVIDERS: Emergency Provider Emergency Medicine; Family Provider Student in an Organized Health Care Education/Training Program; PCP Student in an Organized Health Care Education/Training Program
DX: K62.89 Other specified diseases of anus and rectum (principal)
CPT/HCPCS: 99281; 99283

== ENCOUNTER → 2023-08-02 13:21 | Outpatient (CLI) | payer OTHER, BC, SELFPAY ==
[2022-06-04 12:06] VITALS: BMI 41.9
--- NOTE | 2023-08-02 13:24 | DI.RAD.S_ITS ---
PROCEDURE: XR SHOULDER LT MIN 2V INDICATIONS: Left shoulder injury TECHNIQUE: 3 views of the shoulder were acquired. COMPARISON: [facility], CR, XR SHOULDER RT MIN 2V, 05/24/2020, 14:47. FINDINGS: Bones: No fractures or dislocations. No suspicious bony lesions. Visualized ribs appear intact. Soft tissues: No suspicious soft tissue calcifications. IMPRESSION: No acute osseous abnormality. If pain persists with conservative management, consider repeat x-ray in 10-14 days or cross-sectional imaging. Dictated by: Dylan Jiménez M.D. on 08/02/2023 at 13:44 Approved by: Dylan Jiménez M.D. on 08/02/2023 at 13:45
== END ==
PROVIDERS: Family Provider Student in an Organized Health Care Education/Training Program; PCP Student in an Organized Health Care Education/Training Program; Referring Provider Registered Nurse; Visit Provider Registered Nurse
DX: M25.512 Pain in left shoulder (principal)
CPT/HCPCS: 73030